=== PATIENT | male | born 1965 | race Caucasian/White ===

== ENCOUNTER 2019-08-25 13:44 | Emergency (ER) | payer OTHER, MEDICAID, SELFPAY ==
[2019-08-25 13:45] VITALS: BP 140/85; PULSE 96; RESP 14; TEMP 36.4; O2SAT 98
--- NOTE | 2019-08-25 14:21 | ED.EYEPROB ---
HPI - Eye Problem <TARYN Jolley - Last Filed: 08/25/19 21:19> General Chief complaint: Eye Problems Stated complaint: left eye object/dizzy/nausea last night Time Seen by Provider: 08/25/19 13:53 Source: patient Mode of arrival: Ambulatory Limitations: no limitations History of Present Illness HPI Narrative: 54-year-old male presents to the emergency department complaining of left eye pain, increased watery eye discharge, photosensitivity, and a feeling like there is a foreign object in his left for the past day and half. He states he was walking back from [place] last night when he felt like something flew into his eye. He denies grinding or cutting any metal or wood recently. He states there was an irritation in his eye that continued this morning making it difficult to open his eye. He denies any other symptoms such as headache, chest pain, nasal congestion, sore throat, shortness of breath, nausea, vomiting, diarrhea, or other concerns. He denies wearing any contacts. Related Data Home Medications Medication Instructions Recorded Confirmed ledipasvir-sofosbuvir [Harvoni] 1 tab PO QDAY #0 04/27/17 Previous Rx's Medication Instructions Recorded sulfamethoxazole-trimethoprim 1 tab PO BID #20 tab 04/27/17 amoxicillin 500 mg PO TID #30 tab 04/29/17 erythromycin 0.5 inch EYE-LEFT QID 5 Days #3.5 08/25/19 gram Allergies Allergy/AdvReac Type Severity Reaction Status Date / Time codeine [CODEINE] Allergy Unknown Unverified 01/25/18 12:45 Review of Systems <TARYN Jolley - Last Filed: 08/25/19 21:19> Review of Systems Narrative: REVIEW OF SYSTEMS: GENERAL: Denies fever or chills. HENT: No head trauma, hearing loss, or sore throat. EYES: Complains of left eye irritation, see HPI. NECK/LYMPHATIC: No lymphadenopathy. CARDIOVASCULAR: No chest pain. RESPIRATORY: No cough or shortness of breath. INTEGUMENTARY: No rash, lesions, or pruritus. NEURO: No headaches or confusion. Patient History <TARYN Jolley - Last Filed: 08/25/19 21:19> Medical History No significant medical problems (Acute) Social History Smoking Status: Former smoker alcohol intake frequency: 0-2 drinks per day Substance Use Type: does not use Exam <TARYN Jolley - Last Filed: 08/25/19 21:19> Narrative Exam Narrative: PHYSICAL EXAMINATION: GENERAL: Well groomed, alert, and cooperative. Answers questions promptly and appropriately. Vital signs noted. HENT: Normocephalic, atraumatic. Hearing intact. Oral mucosa is pink and moist. Face features symmetrical. [TMs with crisp light reflex] EYES: PERRLA, EOMI without pain, Right eye: Photosensitivity noted, Conjunctiva slightly injected, a 2mm collection of dye noted to cornea at approximately the 5 o'clock kj with fluorescein examination (suggesting corneal abrasion). No foreign bodies visualized. Moderate amount of clear watery discharge noted. Left eye: Conjunctiva clear, sclera white. CARDIOVASCULAR: S1 and S2 sounds normal. Regular rate and rhythm. RESPIRATORY: Normal respiratory rate, trachea midline, airway patent. No stridor, nasal flaring or accessory muscle use. Lungs are clear in all [place] without wheeze, rhonchi, or crackles. MUSCULOSKELETAL: Normal gait and coordination. Equal tone and mass bilaterally. SKIN: Warm, dry, soft, appropriate color for ethnicity. NEURO: Alert and Oriented X 3. Good coordination. PSYCH: Appropriate affect and mood. Initial Vital Signs Initial Vital Signs: Vital Signs Temperature 97.5 F L 08/25/19 13:45 Pulse Rate 96 H 08/25/19 13:45 Respiratory Rate 14 08/25/19 13:45 Blood Pressure 140/85 08/25/19 13:45 Pulse Oximetry 98 08/25/19 13:45 <Nichole Smiley DO - Last Filed: 08/26/19 07:37> Initial Vital Signs Initial Vital Signs: Vital Signs Temperature 97.5 F L 08/25/19 13:45 Pulse Rate 96 H 08/25/19 13:45 Respiratory Rate 14 08/25/19 13:45 Blood Pressure 140/85 08/25/19 13:45 Pulse Oximetry 98 08/25/19 13:45 Course <TARYN Jolley - Last Filed: 08/25/19 21:19> Course Course Narrative: Proparacaine was used during for seen examination. [place] mycin ointment was applied eye. Orders Ordered: Discontinued Medications Erythromycin (Erythromycin Ophth Oint) 1 applic EYE-LEFT NOW ONE Stop: 08/25/19 14:30 Last Admin: 08/25/19 14:35 Dose: 1 applic Documented by: BEATA Proparacaine HCl (Parcaine 0.5% Ophth Kristin) 1 drops EYE-LEFT NOW ONE Stop: 08/25/19 14:07 Last Admin: 08/25/19 14:35 Dose: 1 drops Documented by: BEATA Consultations Consultation #1: Patient staffed with Dr. Smiley. Vital Signs Vital signs: Vital Signs - 8 hr 08/25/19 13:45 Temperature 97.5 F L Pulse Rate 96 H Respiratory Rate 14 Blood Pressure 140/85 Pulse Oximetry 98 <Nichole Smiley DO - Last Filed: 08/26/19 07:37> Orders Ordered: Discontinued Medications Erythromycin (Erythromycin Ophth Oint) 1 applic EYE-LEFT NOW ONE Stop: 08/25/19 14:30 Last Admin: 08/25/19 14:35 Dose: 1 applic Documented by: BEATA Proparacaine HCl (Parcaine 0.5% Ophth Kristin) 1 drops EYE-LEFT NOW ONE Stop: 08/25/19 14:07 Last Admin: 08/25/19 14:35 Dose: 1 drops Documented by: BEATA Vital Signs Vital signs: Vital Signs - 8 hr 08/25/19 13:45 Temperature 97.5 F L Pulse Rate 96 H Respiratory Rate 14 Blood Pressure 140/85 Pulse Oximetry 98 MDM - Eye Problem <TARYN Jolley - Last Filed: 08/25/19 21:19> Medical Records Attestation: I reviewed the patient's medical records. Lab Data Attestation: I reviewed the patient's lab results. MDM Narrative Medical decision making narrative: Concern for corneal abrasion due to collection of dye on for seen examination. Patient was prescribed erythromycin ointment. No foreign body was visualized. Patient was extensively counseled for follow-up with an eye doctor in the next week for re-evaluation. Strict ED return precautions given for wound new or worsening symptoms such as vision changes, increased pain, headaches, or concerns. Discharge Plan Departure Patient Disposition: Home Clinical Impression: Corneal abrasion Discharge Date/Time: 08/25/19 14:41 Instructions: DI for Corneal Abrasion Activity Restrictions/Additional Instructions: Thank you for entrusting me with your care today. As discussed, it appears your symptoms may be caused by a corneal abrasion. I prescribed you an antibiotic for your eye, please use this 3-4 times daily. You may use Tylenol and ibuprofen for pain. Follow up with an eye doctor in the next week for re-evaluation. Return emergency department if he develops new or worsening symptoms such as severe and worsening eye pain, severe headache, chest pain, shortness of breath, or other concerns. Prescriptions: New erythromycin 5 mg/gram (0.5 %) ointment 0.5 inch EYE-LEFT QID 5 Days Qty: 3.5 RF: 0 No Action ledipasvir-sofosbuvir [Harvoni] 90 MG/400 MG tablet 1 tab PO QDAY Qty: 0 RF: 0 sulfamethoxazole-trimethoprim 800 MG/160 MG tablet 1 tab PO BID Qty: 20 RF: 0 amoxicillin 500 MG tablet 500 mg PO TID Qty: 30 RF: 0
[2019-08-25] MEDS: PROPARACAINE 0.5% OPHTH SOL 1 DROPS EYE-LEFT (14:35)
[2019-08-25] MEDS: ERYTHROMYCIN OPHTH 1 GM OINT 1 APPLIC EYE-LEFT (14:35)
== END 2019-08-25 14:41 | disposition home or self-care (01) ==
PROVIDERS: Emergency Provider Nurse Practitioner
DX: S05.02XA Injury of conjunctiva and corneal abrasion without foreign body, left eye, initial encounter (principal)
CPT/HCPCS: 99282; 99283

== ENCOUNTER → 2020-02-08 15:21 | Outpatient (CLI) | payer OTHER, MEDICAID, SELFPAY | PROVIDERS: Referring Provider Family Medicine; Visit Provider Family Medicine | DX: N40.0 Benign prostatic hyperplasia without lower urinary tract symptoms (principal) | CPT/HCPCS: 36415 ==

== ENCOUNTER 2020-10-25 16:02 | Emergency (ER) | payer OTHER, MEDICAID, SELFPAY ==
[2020-10-25 16:13] VITALS: BP 110/72; PULSE 114; RESP 15; TEMP 36.3; O2SAT 100; BMI 24.4
--- NOTE | 2020-10-25 17:08 | PC.NURSE ---
unable to locate pt
[2020-10-25 17:34] LABS: Add Manual Diff / Slide Review NO; Basophils Absolute Auto 0 /uL (0-100); Basophils Percent Auto 0.4 % (0-2); Eosinophils Absolute Auto 100 /uL (0-450); Eosinophils Percent Auto 0.9 % (2-4); Hematocrit 44.3 % (41-53); Hemoglobin 14.4 g/dL (13.5-17.5); Lymphocytes Absolute Auto 2300 /uL (1100-4500); Lymphocytes Percent Auto 30.6 % (25-40); Mean Corpuscular HGB Conc 32.6 % (30-36); Mean Corpuscular Volume 89.1 fL (80-100); Monocytes Absolute Auto 700 /uL (0-900); Monocytes Percent Auto 9.1 % (3-14); Neutrophils Absolute Auto 4400 /uL (1500-7000); Platelet Count 237 X10^3/uL (150-400); Red Blood Cell Count 4.96 X10^6/uL (4.5-5.9); Red Cell Distribution Width 12.9 % (11.6-14.8); White Blood Cell Count 7.4 X10^3/uL (4.5-11.0)
[2020-10-25 17:44] LABS: BUN Creatinine Ratio 9.7 (6-22); Blood Urea Nitrogen 11 mg/dL (9-20); Calcium 10.2 mg/dL (8.4-10.2); Carbon Dioxide 33 mmol/L (22-32); Chloride 91 mmol/L (98-107); Estimated Glomerular Filt Rate > 60.0 mL/min (>60); HEMOLYSIS < 15 (0-50); Potassium 4.2 mmol/L (3.4-5.1); Sodium 130 mmol/L (137-145)
[2020-10-25 17:59] LABS: Glucose 639 mg/dL (70-100)
--- NOTE | 2020-10-25 18:38 | PC.NURSE ---
Attempted to call 5 different numbers in the chart to have him return to the ED for elevated glucose. Unable to reach him
== END 2020-10-25 17:25 | disposition left against medical advice (07) ==
PROVIDERS: Emergency Provider Emergency Medicine
DX: E11.65 Type 2 diabetes mellitus with hyperglycemia (principal)
CPT/HCPCS: 36415; 80048; 83735; 85025; 99281

== ENCOUNTER 2020-10-28 16:37 | Observation (INO) | payer OTHER, MEDICAID, SELFPAY ==
[2020-10-28] VITALS (11 sets, daily range): BP systolic 124–162; BP diastolic 64–98; PULSE 79–108; RESP 12–22; TEMP 36.4–36.8; O2SAT 78–100; BMI 24.4
--- NOTE | 2020-10-28 16:38 | DI.CT.S_ITS ---
PROCEDURE: CT CHEST ABD PEL W CON INDICATIONS: ab pain TECHNIQUE: After the administration of intravenous contrast, 5 mm thick sections acquired from the lung apices to the symphysis. 5 mm coronal and sagittal reformats were performed, with additional 7 mm MIP reformats through the lungs. For radiation dose reduction, the following was used: automated exposure control, adjustment of mA and/or kV according to patient size. COMPARISON: [facility], CR, XR CHEST 1V, 10/28/2020, 17:06. [facility], CT, CT HEAD/BRAIN WO CON, 10/28/2020, 16:58. [facility], CT, ABDOMEN/PELVIS WITH CONTRAST, 02/28/2013, 15:03. FINDINGS: Image quality: Excellent. CHEST: Lungs and pleura: No acute airspace opacities. Centrilobular emphysematous changes are seen. These are more prominent at the lung apices than at the lung bases. No pleural effusions or pneumothorax. Central and peripheral airways appear patent and normal in caliber. Mediastinum: Heart size is normal. Heqd-sj-[id number] coronary dL artery calcification is seen. No pericardial effusion. No mediastinal or hilar adenopathy by size criteria. Thoracic aorta and central pulmonary arteries are normal in size. Esophagus is normal in caliber. There is a small hiatal hernia. Chest wall: No axillary or supraclavicular adenopathy by size criteria. Thyroid gland demonstrates no significant abnormality. ABDOMEN: Solid organs: Liver is normal in size and enhancement. Gallbladder wall is not thickened. Biliary system is non dilated. Pancreas enhances normally. Spleen is normal in size and enhancement. No adrenal nodules. The kidneys demonstrate normal size. There is mild to moderate left-sided hydroureter and hydronephrosis and there is at least moderate right-sided hydronephrosis and hydroureter seen. There is abnormal fluid seen surrounding the right kidney and also within the retroperitoneum. Peritoneum and bowel: Bowel loops demonstrate normal wall thickness and caliber. No free fluid or air. Nodes and vessels: No retroperitoneal or mesenteric adenopathy by size criteria. Aorta and inferior vena cava are normal in size. Atherosclerotic calcification is noted. Miscellaneous: No ventral hernias. PELVIS: Genitourinary: The urinary bladder is grossly enlarged, measuring 23 cm craniocaudal, seen above the level of the umbilicus. Miscellaneous: No inguinal hernias or adenopathy. Bones: No suspicious bony lesions. No vertebral body compression fractures. Mild to moderate levoconvex lumbar scoliotic curvature is seen. IMPRESSION: Grossly enlarged urinary bladder. Bilateral hydronephrosis and hydroureter can be seen, right worse than left. Urinary retention is presumed. There is fluid seen adjacent to the right kidney and within the retroperitoneum, which is felt most likely to be related to extravasated urine from a ruptured calyx. If clinically appropriate, a repeat CT without contrast could be considered to see if opacified urine can be seen within this area of retroperitoneal free fluid. (If the patient is rescanned, this could be performed at no additional charge to the patient. Those images should be placed on this study, with an addendum given.) Incidental note is made of: Moderate coronary artery calcification Small hiatal hernia [id number] levoconvex scoliotic curvature Note: Findings and recommendations discussed by telephone with Dr. Smiley at 4:34 p.m. [place] time on October 28, 2020. Dictated by: Denzel Cardona M.D. on 10/28/2020 at 16:26 Approved by: Denzel Cardona M.D. on 10/28/2020 at 16:35
--- NOTE | 2020-10-28 16:38 | DI.RAD.S_ITS ---
PROCEDURE: XR CHEST 1V INDICATIONS: ab pain TECHNIQUE: One view of the chest was acquired. COMPARISON: [facility], CT, CT HEAD/BRAIN WO CON, 10/28/2020, 16:58. [facility], CT, CT CHEST ABD PEL W CON, 10/28/2020, 16:58. FINDINGS: Surgical changes and devices: None. Lungs and pleura: An incomplete inspiratory result is noted, causing a crowded appearance to the lung markings. No focal infiltrates are seen. No pneumothorax or significant pleural effusions are seen. Mediastinum: Mediastinal contours appear normal. Heart size is normal. Bones and chest wall: No suspicious bony lesions. Overlying soft tissues appear unremarkable. IMPRESSION: Limited portable chest examination, without a significant cardiopulmonary abnormality identified. Dictated by: Denzel Cardona M.D. on 10/28/2020 at 16:24 Approved by: Denzel Cardona M.D. on 10/28/2020 at 16:25
--- NOTE | 2020-10-28 16:39 | DI.CT.S_ITS ---
PROCEDURE: CT HEAD/BRAIN WO CON INDICATIONS: left hand weakness 2 days TECHNIQUE: Noncontrast 4.5 mm thick angled axial sections acquired from the foramen magnum to the vertex, with coronal and sagittal reformats. For radiation dose reduction, the following was used: automated exposure control, adjustment of mA and/or kV according to patient size. COMPARISON: None. FINDINGS: Image quality: Excellent. CSF spaces: Basal cisterns are patent. No extra-axial fluid collections. The ventricles are symmetric in size and shape. Brain: No intracranial bleeds or masses. There is cerebral volume loss for age, with resultant ventricular and sulcal prominence. There are periventricular and deep white matter chronic small vessel ischemic changes. There is intracranial internal carotid artery atherosclerosis. Skull and face: Calvarium and visualized facial bones appear intact, without suspicious lesions. Sinuses: Visualized sinuses and mastoids are clear. IMPRESSION: 1. CT head without acute intracranial abnormalities or acute calvarial fractures. 2. Age-related senescent changes and sequela of chronic small vessel ischemic disease. If there is persistent or high clinical suspicion for acute cerebrovascular ischemia/stroke, more sensitive evaluation with brain MRI can be considered. Dictated by: Wilbur Burgos M.D. on 10/28/2020 at 16:21 Approved by: Wilbur Burgos M.D. on 10/28/2020 at 16:21
--- NOTE | 2020-10-28 17:06 | PC.NURSE ---
1640 called JOHNNIE Santos for assistance with IV access.
[2020-10-28 17:14] LABS: Add Manual Diff / Slide Review NO; Basophils Absolute Auto 100 /uL (0-100); Basophils Percent Auto 0.5 % (0-2); Eosinophils Absolute Auto 0 /uL (0-450); Eosinophils Percent Auto 0.4 % (2-4); Hematocrit 43.7 % (41-53); Hemoglobin 14.3 g/dL (13.5-17.5); Lymphocytes Absolute Auto 1500 /uL (1100-4500); Lymphocytes Percent Auto 11.9 % (25-40); Mean Corpuscular HGB Conc 32.7 % (30-36); Mean Corpuscular Hemoglobin 28.8 PG (26-34); Mean Corpuscular Volume 88.1 fL (80-100); Monocytes Absolute Auto 800 /uL (0-900); Monocytes Percent Auto 6.6 % (3-14); Neutrophils Absolute Auto 9900 /uL (1500-7000); Neutrophils Percent Auto 80.6 % (50-75); Platelet Count 263 X10^3/uL (150-400); Red Blood Cell Count 4.96 X10^6/uL (4.5-5.9); Red Cell Distribution Width 12.5 % (11.6-14.8); White Blood Cell Count 12.3 X10^3/uL (4.5-11.0)
[2020-10-28 17:23] LABS: HCO3 VBG 37 mmol/L (23-28); PCO2 VBG 63.6 mmHg (45-50); PO2 VBG 21 mmHg (35-45); pH VBG 7.37 (7.33-7.43)
[2020-10-28 17:24] LABS: Oxygen Saturation VBG 30 % (70-75); Total CO2 VBG 38 mmol/L (24-29)
[2020-10-28] MEDS: LIDOCAINE 2% (UROJET) 5 ML GEL TOP (17:30)
[2020-10-28 17:32] LABS: Alanine Aminotransferase 31 IU/L (<50); Albumin 4.4 g/dL (3.5-5.0); Albumin Globulin Ratio 1.3 (1.0-2.8); Alkaline Phosphatase 152 U/L (38-126); Aspartate Aminotransferase 24 IU/L (17-59); BUN Creatinine Ratio 9.9 (6-22); Bilirubin Total 0.4 mg/dL (0.2-1.3); Blood Urea Nitrogen 16 mg/dL (9-20); Calcium 10.2 mg/dL (8.4-10.2); Carbon Dioxide 37 mmol/L (22-32); Chloride 86 mmol/L (98-107); Estimated Glomerular Filt Rate 44.6 mL/min (>60); Globulin 3.4 g/dL (1.7-4.1); HEMOLYSIS < 15 (0-50); Lactate (Lactic Acid) 2.7 mmol/L (0.7-2.1); Potassium 4.6 mmol/L (3.4-5.1); Sodium 129 mmol/L (137-145); Total Protein 7.8 g/dL (6.3-8.2)
[2020-10-28 17:34] LABS: Ketones (Beta-Hydroxybutyrate) 0.53 mmol/L (<0.27)
[2020-10-28] MEDS: SODIUM CHLORIDE 0.9% 1,000 ML 1000 ML IV (17:35)
--- NOTE | 2020-10-28 17:38 | ED_ITS ---
HPI - Abdominal Pain General Chief Complaint: Abdominal Pain Stated Complaint: L hand immobile, abdominal pain worse, >500 blood Time Seen by Provider: 10/28/20 16:38 Source: patient and EMS Limitations: no limitations History of Present Illness HPI narrative: Patient is a 55-year-old male who presents with worsening abdominal pain. He was actually here 2 days ago but left before being seen. He somehow had blood work done and was found to be hyperglycemic with no known history of diabetes. Patient states that he filled up 7 diapers of urine last night. But seems to be in excruciating abdominal pain and discomfort. He has also had some left hand numbness and tingling ongoing for the last 2 days. No weakness. MD complaint: abdominal pain Onset (ago): day(s) (2) Pain Consistency: constant Location: diffuse Severity: severe Quality: stabbing and fullness Related Data Home Medications Medication Instructions Recorded Confirmed tamsulosin [Flomax] 0.4 mg PO BEDTIME 10/28/20 10/28/20 Allergies Allergy/AdvReac Type Severity Reaction Status Date / Time codeine [CODEINE] AdvReac Intermediate GI Upset Verified 10/25/20 16:13 Review of Systems Review of Systems ROS Unobtainable: All systems reviewed & are unremarkable except as noted in HPI and below Constitutional Constitutional: Denies chills, Denies fever(s), Denies lethargy and Denies weakness Cardiovascular Cardiovascular: Denies chest pain, Denies irregular heart rhythm, Denies lightheadedness, Denies palpitations, Denies dyspnea, Denies dyspnea on exertion and Denies orthopnea Respiratory Respiratory: Denies cough, Denies dyspnea, Denies dyspnea on exertion and Denies wheezing Gastrointestinal Gastrointestinal: Reports as per HPI Genitourinary Genitourinary: Reports as per HPI and Reports urinary frequency Genitourinary: Reports as per HPI and Reports urinary frequency Musculoskeletal Musculoskeletal: Denies back pain and Denies myalgias Integumentary/Breasts Skin/Breast: Denies pruritus, Denies erythema, Denies rash and Denies wounds Neurologic Neurologic: Denies weakness Endocrine Endocrine: Denies palpitations Allergic/Immunologic Allergic/Immunologic: Denies wheezing Patient History Medical History BPH (benign prostatic hyperplasia) Constipation No significant medical problems Surgical History No history of previous surgery Family History Other Adopted person Social History household members: none Smoking Status: Current every day smoker alcohol intake: former Smoking Status: Current every day smoker alcohol intake frequency: 0-2 drinks per day Substance Use Type: does not use Exam Initial Vital Signs Initial Vital Signs: Vital Signs Temperature 97.6 F 10/28/20 16:25 Pulse Rate 97 H 10/28/20 16:25 Respiratory Rate 22 10/28/20 16:25 Blood Pressure 149/89 H 10/28/20 16:25 Pulse Oximetry 95 10/28/20 16:25 GENERAL: Patient appears to be in severe pain and in no acute distress. HEENT: Head atraumatic,EOMI, pupils reactive, face symmetric, moist mucous membranes CARDIOVASCULAR: Regular rate and rhythm without murmurs, rubs or gallops. RESPIRATORY: Breath sounds equal bilaterally, no wheezes rales or rhonchi. ABDOMEN: Soft, distended grossly tender : No CVA tenderness EXTREMITIES: Normal range of motion, no clubbing or edema. Neurovascularly intact NEUROLOGICAL: Alert and oriented x4.Normal gait and speech. Cranial nerves II through XII grossly intact. [employer] strength equal bilaterally left hand above head SKIN: Warm, dry, no laceration, no petechiae, no rashes or lesions. Course Orders Ordered: Acetaminophen (Acetaminophen 325 Mg Tablet) 650 mg PO Q6HR PRN PRN Reason: Fever/Mild Pain (1-3) Dextrose (Dextrose 50 % In Water 25 Gm/50 Ml Syringe) 25 gm IV PRN PRN PRN Reason: Hypoglycemia Enoxaparin Sodium (Enoxaparin 40 Mg/0.4 Ml Syringe) 40 mg SUBCUT DAILY DEE DEE Sodium Chloride (Normal Saline 0.9%) 1,000 mls @ 100 mls/hr IV CONT DEE DEE Last Admin: 10/29/20 05:03 Dose: 100 mls/hr Documented by: Infusion: 10/29/20 05:03 Dose: 100 mls/hr Documented by: Admin: 10/28/20 22:39 Dose: 100 mls/hr Documented by: HEDWARD Ibuprofen (Ibuprofen 600 Mg Tablet) 600 mg PO Q6HR PRN PRN Reason: Fever/Mild Pain (1-3) Insulin Aspart (Insulin Aspart 100 Unit/Ml Insuln Pen) 0 unit SUBCUT ACHS [facility]; Protocol Last Admin: 10/28/20 23:59 Dose: 7 unit Documented by: JASMINA Cosigned by: CRISTY Insulin Glargine (Insulin Glargine 100 Unit/Ml 3ml Pen) 5 unit SUBCUT 0800 [facility] Insulin Glargine (Insulin Glargine 100 Unit/Ml 3ml Pen) 10 unit SUBCUT 2100 [facility] Last Admin: 10/28/20 23:58 Dose: 10 unit Documented by: JASMINA Cosigned by: CRISTY Naloxone HCl (Naloxone 0.4 Mg/Ml Vial) 0.2 mg IV Q2MIN PRN PRN Reason: Opiate Reversal Ondansetron HCl (Ondansetron 4 Mg/2 Ml Inj) 4 mg IV Q8HR PRN PRN Reason: Nausea And Vomiting Sennosides (Sennosides 8.6 Mg Tablet) 17.2 mg PO BEDTIME [facility] Last Admin: 10/28/20 22:39 Dose: 17.2 mg Documented by: CRISTY Sodium Chloride (Sodium Chloride 0.9% Flush) 10 ml IV PRN PRN PRN Reason: Flush Sodium Chloride (Sodium Chloride 0.9% Flush) 10 ml IV BID DEE DEE Discontinued Medications Sodium Chloride (Normal Saline 0.9%) 1,000 mls @ 1,000 mls/hr IV BOLUS ONE Stop: 10/28/20 17:37 Last Infusion: 10/28/20 19:15 Dose: 0 mls/hr Documented by: Admin: 10/28/20 17:35 Dose: 1,000 mls/hr Documented by: MP Sodium Chloride (Normal Saline 0.9%) 1,000 mls @ 150 mls/hr IV CONT [facility] Last Infusion: 10/28/20 20:55 Dose: 150 mls/hr Documented by: Admin: 10/28/20 19:32 Dose: 150 mls/hr Documented by: JENNIFER Insulin Aspart (Insulin Aspart 100 Unit/Ml Insuln Pen) 0 unit SUBCUT ACHS [facility]; Protocol Insulin Glargine (Insulin Glargine 100 Unit/Ml 3ml Pen) 10 unit SUBCUT 2100 DEE DEE Lidocaine HCl (Lidocaine 2% (Urojet) 5 Ml Gel) 5 ml TOP NOW ONE Stop: 10/28/20 17:31 Last Admin: 10/28/20 17:30 Dose: 5 ml Documented by: MP Vital Signs Vital signs: Vital Signs - 8 hr 10/28/20 16:25 10/28/20 16:41 10/28/20 17:00 Temperature 97.6 F Pulse Rate 97 H 79 96 H Respiratory Rate 22 13 Blood Pressure 149/89 H 149/89 H 131/83 Pulse Oximetry 95 78 L 82 L 10/28/20 17:22 10/28/20 17:30 10/28/20 18:00 Temperature Pulse Rate 82 90 90 Respiratory Rate 12 16 Blood Pressure 161/98 H 154/93 H 162/88 H Pulse Oximetry 94 100 100 10/28/20 19:00 Temperature Pulse Rate 95 H Respiratory Rate 15 Blood Pressure 162/88 H Pulse Oximetry 100 MDM - Abdominal Pain Lab Data Attestation: I reviewed the patient's lab results. Result diagrams: 10/29/20 05:52 10/29/20 05:52 Labs: Lab Results 10/28/20 10/28/20 10/28/20 Range/Units 16:50 16:50 16:50 WBC 12.3 H (4.5-11.0) X10^3/uL RBC 4.96 (4.5-5.9) X10^6/uL Hgb 14.3 (13.5-17.5) g/dL Hct 43.7 (41-53) % MCV 88.1 (80-100) fL MCH 28.8 (26-34) PG MCHC 32.7 (30-36) % RDW 12.5 (11.6-14.8) % Plt Count 263 (150-400) X10^3/uL Neut % (Auto) 80.6 H (50-75) % Lymph % (Auto) 11.9 L (25-40) % Wilson % (Auto) 6.6 (3-14) % Eos % (Auto) 0.4 L (2-4) % Baso % (Auto) 0.5 (0-2) % Neut # (Auto) 9900 H (4364-9317) /uL Lymph # (Auto) 1500 (7233-4122) /uL Wilson # (Auto) 800 (0-900) /uL Eos # (Auto) 0 (0-450) /uL Baso # (Auto) 100 (0-100) /uL VBG pH (7.33-7.43) VBG pCO2 (45-50) mmHg VBG pO2 (35-45) mmHg VBG HCO3 (23-28) mmol/L VBG Total CO2 (24-29) mmol/L VBG O2 Saturation (70-75) % VBG Base Excess (0-4) mmol/L Sodium 129 L (137-145) mmol/L Potassium 4.6 (3.4-5.1) mmol/L Chloride 86 L (98-107) mmol/L Carbon Dioxide 37 H (22-32) mmol/L BUN 16 (9-20) mg/dL Creatinine 1.62 H (0.66-1.25) mg/dL Estimated GFR 44.6 L (>60) mL/min BUN/Creatinine Ratio 9.9 (6-22) Glucose 726 H* (70-100) mg/dL Hemoglobin A1c (4.0-6.0) % Lactate (0.7-2.1) mmol/L Calcium 10.2 (8.4-10.2) mg/dL Total Bilirubin 0.4 (0.2-1.3) mg/dL AST 24 (17-59) IU/L ALT 31 (<50) IU/L Alkaline Phosphatase 152 H (38-126) U/L Total Protein 7.8 (6.3-8.2) g/dL Albumin 4.4 (3.5-5.0) g/dL Globulin 3.4 (1.7-4.1) g/dL Albumin/Globulin Ratio 1.3 (1.0-2.8) Procalcitonin < 0.05 (<0.5) ng/mL Urine Color Urine Appearance Urine pH (4.5-8.0) Ur Specific [place] (1.000-1.035) Urine Protein (Negative) Urine Glucose (UA) (Negative) g/dL Urine Ketones (NEGATIVE) Urine Occult Blood (Negative) Urine Nitrate (Negative) Urine Bilirubin (NEGATIVE) Urine Urobilinogen (0.2) E.U./dL Ur Leukocyte Esterase (NEGATIVE) Urine RBC (0-5/HPF) Urine WBC (0-5/HPF) Urine Bacteria (None) Ur Culture Indicated? U Opiates 300ng/mL cut (Negative) Ur Oxycodone Screen (Negative) Urine Methadone Screen (Negative) Ur Barbiturates Screen (Negative) U Tricyclic Antidepress (Negative) Ur Phencyclidine Scrn (Negative) Ur Amphetamines Screen (Negative) U Methamphetamines Scrn (Negative) Ur MDMA Scrn (Ecstasy) (Negative) U Benzodiazepines Scrn (Negative) Urine Cocaine Screen (Negative) U Marijuana (THC) Screen (Negative) Ketones 0.53 H (<0.27) mmol/L SARS-CoV-2 (PCR) (Negative) 10/28/20 10/28/20 10/28/20 Range/Units 16:50 16:50 16:55 WBC (4.5-11.0) X10^3/uL RBC (4.5-5.9) X10^6/uL Hgb (13.5-17.5) g/dL Hct (41-53) % MCV (80-100) fL MCH (26-34) PG MCHC (30-36) % RDW (11.6-14.8) % Plt Count (150-400) X10^3/uL Neut % (Auto) (50-75) % Lymph % (Auto) (25-40) % Wilson % (Auto) (3-14) % Eos % (Auto) (2-4) % Baso % (Auto) (0-2) % Neut # (Auto) (7552-7535) /uL Lymph # (Auto) (5147-3714) /uL Wilson # (Auto) (0-900) /uL Eos # (Auto) (0-450) /uL Baso # (Auto) (0-100) /uL VBG pH 7.37 (7.33-7.43) VBG pCO2 63.6 H (45-50) mmHg VBG pO2 21 L (35-45) mmHg VBG HCO3 37 H (23-28) mmol/L VBG Total CO2 38 H (24-29) mmol/L VBG O2 Saturation 30 L (70-75) % VBG Base Excess 11.0 H (0-4) mmol/L Sodium (137-145) mmol/L Potassium (3.4-5.1) mmol/L Chloride (98-107) mmol/L Carbon Dioxide (22-32) mmol/L BUN (9-20) mg/dL Creatinine (0.66-1.25) mg/dL Estimated GFR (>60) mL/min BUN/Creatinine Ratio (6-22) Glucose (70-100) mg/dL Hemoglobin A1c > 14.0 H (4.0-6.0) % Lactate 2.7 H (0.7-2.1) mmol/L Calcium (8.4-10.2) mg/dL Total Bilirubin (0.2-1.3) mg/dL AST (17-59) IU/L ALT (<50) IU/L Alkaline Phosphatase (38-126) U/L Total Protein (6.3-8.2) g/dL Albumin (3.5-5.0) g/dL Globulin (1.7-4.1) g/dL Albumin/Globulin Ratio (1.0-2.8) Procalcitonin (<0.5) ng/mL Urine Color Urine Appearance Urine pH (4.5-8.0) Ur Specific [place] (1.000-1.035) Urine Protein (Negative) Urine Glucose (UA) (Negative) g/dL Urine Ketones (NEGATIVE) Urine Occult Blood (Negative) Urine Nitrate (Negative) Urine Bilirubin (NEGATIVE) Urine Urobilinogen (0.2) E.U./dL Ur Leukocyte Esterase (NEGATIVE) Urine RBC (0-5/HPF) Urine WBC (0-5/HPF) Urine Bacteria (None) Ur Culture Indicated? U Opiates 300ng/mL cut (Negative) Ur Oxycodone Screen (Negative) Urine Methadone Screen (Negative) Ur Barbiturates Screen (Negative) U Tricyclic Antidepress (Negative) Ur Phencyclidine Scrn (Negative) Ur Amphetamines Screen (Negative) U Methamphetamines Scrn (Negative) Ur MDMA Scrn (Ecstasy) (Negative) U Benzodiazepines Scrn (Negative) Urine Cocaine Screen (Negative) U Marijuana (THC) Screen (Negative) Ketones (<0.27) mmol/L SARS-CoV-2 (PCR) (Negative) 10/28/20 10/28/20 10/28/20 Range/Units 17:40 17:40 17:45 WBC (4.5-11.0) X10^3/uL RBC (4.5-5.9) X10^6/uL Hgb (13.5-17.5) g/dL Hct (41-53) % MCV (80-100) fL MCH (26-34) PG MCHC (30-36) % RDW (11.6-14.8) % Plt Count (150-400) X10^3/uL Neut % (Auto) (50-75) % Lymph % (Auto) (25-40) % Wilson % (Auto) (3-14) % Eos % (Auto) (2-4) % Baso % (Auto) (0-2) % Neut # (Auto) (9624-3658) /uL Lymph # (Auto) (6372-1821) /uL Wilson # (Auto) (0-900) /uL Eos # (Auto) (0-450) /uL Baso # (Auto) (0-100) /uL VBG pH (7.33-7.43) VBG pCO2 (45-50) mmHg VBG pO2 (35-45) mmHg VBG HCO3 (23-28) mmol/L VBG Total CO2 (24-29) mmol/L VBG O2 Saturation (70-75) % VBG Base Excess (0-4) mmol/L Sodium (137-145) mmol/L Potassium (3.4-5.1) mmol/L Chloride (98-107) mmol/L Carbon Dioxide (22-32) mmol/L BUN (9-20) mg/dL Creatinine (0.66-1.25) mg/dL Estimated GFR (>60) mL/min BUN/Creatinine Ratio (6-22) Glucose (70-100) mg/dL Hemoglobin A1c (4.0-6.0) % Lactate (0.7-2.1) mmol/L Calcium (8.4-10.2) mg/dL Total Bilirubin (0.2-1.3) mg/dL AST (17-59) IU/L ALT (<50) IU/L Alkaline Phosphatase (38-126) U/L Total Protein (6.3-8.2) g/dL Albumin (3.5-5.0) g/dL Globulin (1.7-4.1) g/dL Albumin/Globulin Ratio (1.0-2.8) Procalcitonin (<0.5) ng/mL Urine Color Yellow Urine Appearance Clear Urine pH 6.0 (4.5-8.0) Ur Specific [place] <=1.005 (1.000-1.035) Urine Protein Negative (Negative) Urine Glucose (UA) 2+ H (Negative) g/dL Urine Ketones Negative (NEGATIVE) Urine Occult Blood Negative (Negative) Urine Nitrate Negative (Negative) Urine Bilirubin Negative (NEGATIVE) Urine Urobilinogen 0.2 (0.2) E.U./dL Ur Leukocyte Esterase Negative (NEGATIVE) Urine RBC None seen (0-5/HPF) Urine WBC None seen (0-5/HPF) Urine Bacteria None seen (None) Ur Culture Indicated? Cult not indicated U Opiates 300ng/mL cut Negative (Negative) Ur Oxycodone Screen Negative (Negative) Urine Methadone Screen Negative (Negative) Ur Barbiturates Screen Negative (Negative) U Tricyclic Antidepress Negative (Negative) Ur Phencyclidine Scrn Negative (Negative) Ur Amphetamines Screen Positive H (Negative) U Methamphetamines Scrn Positive H (Negative) Ur MDMA Scrn (Ecstasy) Negative (Negative) U Benzodiazepines Scrn Negative (Negative) Urine Cocaine Screen Negative (Negative) U Marijuana (THC) Screen Negative (Negative) Ketones (<0.27) mmol/L SARS-CoV-2 (PCR) Negative (Negative) 10/28/20 10/28/20 10/28/20 Range/Units 19:50 19:50 20:01 WBC (4.5-11.0) X10^3/uL RBC (4.5-5.9) X10^6/uL Hgb (13.5-17.5) g/dL Hct (41-53) % MCV (80-100) fL MCH (26-34) PG MCHC (30-36) % RDW (11.6-14.8) % Plt Count (150-400) X10^3/uL Neut % (Auto) (50-75) % Lymph % (Auto) (25-40) % Wilson % (Auto) (3-14) % Eos % (Auto) (2-4) % Baso % (Auto) (0-2) % Neut # (Auto) (5441-5696) /uL Lymph # (Auto) (5009-5235) /uL Wilson # (Auto) (0-900) /uL Eos # (Auto) (0-450) /uL Baso # (Auto) (0-100) /uL VBG pH (7.33-7.43) VBG pCO2 (45-50) mmHg VBG pO2 (35-45) mmHg VBG HCO3 (23-28) mmol/L VBG Total CO2 (24-29) mmol/L VBG O2 Saturation (70-75) % VBG Base Excess (0-4) mmol/L Sodium (137-145) mmol/L Potassium (3.4-5.1) mmol/L Chloride (98-107) mmol/L Carbon Dioxide (22-32) mmol/L BUN (9-20) mg/dL Creatinine (0.66-1.25) mg/dL Estimated GFR (>60) mL/min BUN/Creatinine Ratio (6-22) Glucose 593 H* (70-100) mg/dL Hemoglobin A1c (4.0-6.0) % Lactate 2.7 H Cancelled (0.7-2.1) mmol/L Calcium (8.4-10.2) mg/dL Total Bilirubin (0.2-1.3) mg/dL AST (17-59) IU/L ALT (<50) IU/L Alkaline Phosphatase (38-126) U/L Total Protein (6.3-8.2) g/dL Albumin (3.5-5.0) g/dL Globulin (1.7-4.1) g/dL Albumin/Globulin Ratio (1.0-2.8) Procalcitonin (<0.5) ng/mL Urine Color Urine Appearance Urine pH (4.5-8.0) Ur Specific [place] (1.000-1.035) Urine Protein (Negative) Urine Glucose (UA) (Negative) g/dL Urine Ketones (NEGATIVE) Urine Occult Blood (Negative) Urine Nitrate (Negative) Urine Bilirubin (NEGATIVE) Urine Urobilinogen (0.2) E.U./dL Ur Leukocyte Esterase (NEGATIVE) Urine RBC (0-5/HPF) Urine WBC (0-5/HPF) Urine Bacteria (None) Ur Culture Indicated? U Opiates 300ng/mL cut (Negative) Ur Oxycodone Screen (Negative) Urine Methadone Screen (Negative) Ur Barbiturates Screen (Negative) U Tricyclic Antidepress (Negative) Ur Phencyclidine Scrn (Negative) Ur Amphetamines Screen (Negative) U Methamphetamines Scrn (Negative) Ur MDMA Scrn (Ecstasy) (Negative) U Benzodiazepines Scrn (Negative) Urine Cocaine Screen (Negative) U Marijuana (THC) Screen (Negative) Ketones (<0.27) mmol/L SARS-CoV-2 (PCR) (Negative) Imaging Data CT scan - head: Radiologist's Impression: PROCEDURE: CT HEAD/BRAIN WO CON INDICATIONS: left hand weakness 2 days TECHNIQUE: Noncontrast 4.5 mm thick angled axial sections acquired from the foramen magnum to the vertex, with coronal and sagittal reformats. For radiation dose reduction, the following was used: automated exposure control, adjustment of mA and/or kV according to patient size. COMPARISON: None. FINDINGS: Image quality: Excellent. CSF spaces: Basal cisterns are patent. No extra-axial fluid collections. The ventricles are symmetric in size and shape. Brain: No intracranial bleeds or masses. There is cerebral volume loss for age, with resultant ventricular and sulcal prominence. There are periventricular and deep white matter chronic small vessel ischemic changes. There is intracranial internal carotid artery atherosclerosis. Skull and face: Calvarium and visualized facial bones appear intact, without suspicious lesions. Sinuses: Visualized sinuses and mastoids are clear. IMPRESSION: 1. CT head without acute intracranial abnormalities or acute calvarial fractures. 2. Age-related senescent changes and sequela of chronic small vessel ischemic disease. If there is persistent or high clinical suspicion for acute cerebrovascular ischemia/stroke, more sensitive evaluation with brain MRI can be considered. Dictated by: Wilbur Burgos M.D. on 10/28/2020 at 16:21 CT scan - abdomen/pelvis: Radiologist's Impression: ADDENDUMThis report includes an Addendum and supersedes previous reports for this exam. PROCEDURE: CT CHEST ABD PEL W CON INDICATIONS: ab pain TECHNIQUE: After the administration of intravenous contrast, 5 mm thick sections acquired from the lung apices to the symphysis. 5 mm coronal and sagittal reformats were performed, with additional 7 mm MIP reformats through the lungs. For radiation dose reduction, the following was used: automated exposure control, adjustment of mA and/or kV according to patient size. COMPARISON: [facility], CR, XR CHEST 1V, 10/28/2020, 17:06. [facility], CT, CT HEAD/BRAIN WO CON, 10/28/2020, 16:58. [facility], CT, ABDOMEN/PELVIS WITH CONTRAST, 02/28/2013, 15:03. FINDINGS: Image quality: Excellent. CHEST: Lungs and pleura: No acute airspace opacities. Centrilobular emphysematous changes are seen. These are more prominent at the lung apices than at the lung bases. No pleural effusions or pneumothorax. Central and peripheral airways appear patent and normal in caliber. Mediastinum: Heart size is normal. [id number] coronary dL artery calcification is seen. No pericardial effusion. No mediastinal or hilar adenopathy by size criteria. Thoracic aorta and central pulmonary arteries are normal in size. Esophagus is normal in caliber. There is a small hiatal hernia. Chest wall: No axillary or supraclavicular adenopathy by size criteria. Thyroid gland demonstrates no significant abnormality. ABDOMEN: Solid organs: Liver is normal in size and enhancement. Gallbladder wall is not thickened. Biliary system is non dilated. Pancreas enhances normally. Spleen is normal in size and enhancement. No adrenal nodules. The kidneys demonstrate normal size. There is mild to moderate left-sided hydroureter and hydronephrosis and there is at least moderate right-sided hydronephrosis and hydroureter seen. There is abnormal fluid seen surrounding the right kidney and also within the retroperitoneum. Peritoneum and bowel: Bowel loops demonstrate normal wall thickness and caliber. No free fluid or air. Nodes and vessels: No retroperitoneal or mesenteric adenopathy by size criteria. Aorta and inferior vena cava are normal in size. Atherosclerotic calcification is noted. Miscellaneous: No ventral hernias. PELVIS: Genitourinary: The urinary bladder is grossly enlarged, measuring 23 cm craniocaudal, seen above the level of the umbilicus. Miscellaneous: No inguinal hernias or adenopathy. Bones: No suspicious bony lesions. No vertebral body compression fractures. Mild to moderate levoconvex lumbar scoliotic curvature is seen. IMPRESSION: Grossly enlarged urinary bladder. Bilateral hydronephrosis and hydroureter can be seen, right worse than left. Urinary retention is presumed. There is fluid seen adjacent to the right kidney and within the retroperitoneum, which is felt most likely to be related to extravasated urine from a ruptured calyx. If clinically appropriate, a repeat CT without contrast could be considered to see if opacified urine can be seen within this area of retroperitoneal free fluid. (If the patient is rescanned, this could be performed at no additional charge to the patient. Those images should be placed on this study, with an addendum given.) Incidental note is made of: Moderate coronary artery calcification Small hiatal hernia [id number] levoconvex scoliotic curvature Note: Findings and recommendations discussed by telephone with Dr. Smiley at 4:34 p.m. [place] time on October 28, 2020. Dictated by: Denzel Cardona M.D. on 10/28/2020 at 16:26 Approved by: Denzel Cardona M.D. on 10/28/2020 at 16:35 ADDENDUM: Repeat imaging was performed at no additional charge to the patient. On the repeat images, there is confirmation of extravasated urine into the right retroperitoneal cavity, particularly adjacent to the right kidney, which is highly suspicious for a rupture of a right renal tre, with ongoing leakage of urine into the retroperitoneum. Dictated by: Denzel Cardona M.D. on 10/28/2020 at 17:28 Approved by: Denzel Cardona M.D. on 10/28/2020 at 17:30 Addendum Dictated By:Denzel Cardona MDAddendum Signed By:Addendum Cosigned By:DD/ TD/TT: 10/28/2010/06/1834 PROCEDURE: CT CHEST ABD PEL W CON INDICATIONS: ab pain TECHNIQUE: After the administration of intravenous contrast, 5 mm thick sections acquired from the lung apices to the symphysis. 5 mm coronal and sagittal reformats were performed, with additional 7 mm MIP reformats through the lungs. For radiation dose reduction, the following was used: automated exposure control, adjustment of mA and/or kV ac cording to patient size. COMPARISON: [facility], CR, XR CHEST 1V, 10/28/2020, 17:06. [facility], CT, CT HEAD/BRAIN WO CON, 10/28/2020, 16:58. [facility], CT, ABDOMEN/PELVIS WITH CONTRAST, 02/28/2013, 15:03. FINDINGS: Image quality: Excellent. CHEST: Lungs and pleura: No acute airspace opacities. Centrilobular emphysematous changes are seen. These are more prominent at the lung apices than at the lung bases. No pleural effusions or pneumothorax. Central and peripheral airways appear patent and normal in caliber. Mediastinum: Heart size is normal. [id number] coronary dL artery calcification is seen. No pericardial effusion. No mediastinal or hilar adenopathy by size criteria. Thoracic aorta and central pulmonary arteries are normal in size. Esophagus is normal in caliber. There is a small hiatal hernia. Chest wall: No axillary or supraclavicular adenopathy by size criteria. Thyroid gland demonstrates no significant abnormality. ABDOMEN: Solid organs: Liver is normal in size and enhancement. Gallbladder wall is not thickened. Biliary system is non dilated. Pancreas enhances normally. Spleen is normal in size and enhancement. No adrenal nodules. The kidneys demonstrate normal size. There is mild to moderate left-sided hydroureter and hydronephrosis and there is at least moderate right-sided hydronephrosis and hydroureter seen. There is abnormal fluid seen surrounding the right kidney and also within the retroperitoneum. Peritoneum and bowel: Bowel loops demonstrate normal wall thickness and caliber. No free fluid or air. Nodes and vessels: No retroperitoneal or mesenteric adenopathy by size criteria. Aorta and inferior vena cava are normal in size. Atherosclerotic calcification is noted. Miscellaneous: No ventral hernias. PELVIS: Genitourinary: The urinary bladder is grossly enlarged, measuring 23 cm craniocaudal, seen above the level of the umbilicus. Miscellaneous: No inguinal hernias or adenopathy. Bones: No suspicious bony lesions. No vertebral body compression fractures. Mild to moderate levoconvex lumbar scoliotic curvature is seen. IMPRESSION: Grossly enlarged urinary bladder. Bilateral hydronephrosis and hydroureter can be seen, right worse than left. Urinary retention is presumed. There is fluid seen adjacent to the right kidney and within the retroperitoneum, which is felt most likely to be related to extravasated urine from a ruptured calyx. If clinically appropriate, a repeat CT without contrast could be considered to see if opacified urine can be seen within this area of retroperitoneal free fluid. (If the patient is rescanned, this could be performed at no additional charge to the patient. Those images should be placed on this study, with an addendum given.) Incidental note is made of: Moderate coronary artery calcification Small hiatal hernia [id number] levoconvex scoliotic curvature Note: Findings and recommendations discussed by telephone with Dr. Smiley at 4:34 p.m. [place] time on October 28, 2020. Dictated by: Denzel Cardona M.D. on 10/28/2020 at 16:26 MDM Narrative Medical decision making narrative: 1910 DR. Harris, urology updated on patient's symptoms test results. At this time rectal hands Martinez catheter in place for a few weeks no intervention at this time. Calyx should heal on its own. The patient is an uncontrolled newly diagnosed diabetic. With elevated glucose. No sign of DKA. Hyponatremia corrects with glucose. He has urinary retention with likely post renal acute kidney injury. Martinez catheter now in place overall patient feels much better. He states that he left 2 days ago because he is [facility] hospitals because people here. He does see Dr. Matt, it looks as though he saw him once last year. He has ongoing chronic issues Melyssa CENTENO in ED to see and evaluate patient discharge versus observation. Her Decision for observation Discharge Plan Departure Patient Disposition: Admitted as Observation Clinical Impression: Acute urinary retention, Acute hyperglycemia Admit Date/Time: 10/28/20 20:10 Admit Provider: Anaya Elmore
[2020-10-28 17:41] LABS: Glucose 726 mg/dL (70-100)
[2020-10-28 17:55] LABS: Procalcitonin < 0.05 ng/mL (<0.5)
[2020-10-28 18:36] LABS: Bacteria Urine None Seen; RBC Urine None Seen (0-5/HPF); WBC Urine None Seen (0-5/HPF)
[2020-10-28 18:41] LABS: Appearance Urine UA CLEAR; Bilirubin Urine UA NEGATIVE (NEGATIVE); Color Urine UA YELLOW; Glucose Urine UA 2+ g/dL (Negative); Ketones Urine UA NEGATIVE (NEGATIVE); Leukocyte Esterase Urine UA NEGATIVE (NEGATIVE); Nitrite Urine UA NEGATIVE (Negative); Occult Blood Urine UA NEGATIVE (Negative); Protein Urine UA NEGATIVE (Negative); Specific Gravity Urine UA <=1.005 (1.000-1.035); Urobilinogen Urine UA 0.2 E.U./dL (0.2)
[2020-10-28 18:51] LABS: COVID19 -Nasal RAPID Negative (Negative)
[2020-10-28 18:54] LABS: Culture Indicated Urine Cult Not Indicated
[2020-10-28 18:56] LABS: Hemoglobin A1C% w Est Avg Glu > 14.0 % (4.0-6.0)
[2020-10-28 19:10] LABS: Reflexed Lactate in 2 Hours Y
[2020-10-28] MEDS: SODIUM CHLORIDE 0.9% 1,000 ML 150 ML IV (19:32)
[2020-10-28 20:11] LABS: Lactate 2HR (Lactic Acid Rflx) 2.7 mmol/L (0.7-2.1)
[2020-10-28 20:17] LABS: Glucose 593 mg/dL (70-100)
--- NOTE | 2020-10-28 20:56 | P.HP_ITS ---
History of Present Illness History of Present Illness Date Patient Seen: 10/28/20 Time Patient Seen: 20:45 Chief complaint: Hyperglycemia, urinary retention Narrative: Rafael Harvey is a 55 y.o. male who was last seen by Dr. Matt for urinary retention. He presented to the ED a day ago initially for problems with his left hand and apparently left. Today he returned do to having urinary retention. He states he gets constipated, and when he is, is unable to urinate. He was found to have a blood glucose of 726 and an A1c of greater than 14, and we were asked to see the patient. He states he is very afraid, he has a 5 month old son with his current girlfriend in [place] and was wanting to know if his diabetes will be passed onto his son. He also believes he may have had a stroke as he has lost the mobility of this left hand and is in a contracted state. He denies fever, sweats or chills, dyspnea, chest pain, does endorse a multitude of dermatologic complaints, states the bottom of his feet feel like they are on fire. He states that he was discharged from [facility] after having missed one appointment. He states he is without transportation and currently uses methamphetamine daily. He states he had Hepatitis C from heroin and cocaine use in the past. He does not know anything about his family history stating he was adopted. CT of the abdomen pelvis indicated There is fluid seen adjacent to the right kidney and within the retroperitoneum, which is felt most likely to be related to extravasated urine from a ruptured calyx. Non-contract CT of the head reported to me to be normal. Temp was 97.6?, blood pressure 124/64, heart rate 108, respiratory rate 16, oxygen saturation of 96% on 2 L, he weighs 82 kg with a BMI of 24.4. His WBC is mildly elevated at 12.3, rest of CBC is within normal limits, sodium was 129, potassium 4.6, chloride 86, bicarb 37, BUN 16, creatinine 1.62, GFR is 44.6, glucose was 593, A1c is greater than 14, lactate was 2.7, alk-phos was 152, he has glucose and ketone in his urine, and it is positive for methamphetamine and amphetamines. COVID-19 PCR was negative. Patient History Medical History BPH (benign prostatic hyperplasia) Constipation No significant medical problems Surgical History No history of previous surgery Family & Social History Family History Other Adopted person Safety & Behavioral: Feels Safe in Current Yes Environment Been Physically Hurt or No Threatened By a Person Tobacco & Substance use: Smoking Status Current every day smoker alcohol intake frequency 0-2 drinks per day Substance Use Type does not use Meds Home Medications and Allergies Home Medications Medication Instructions Recorded Confirmed Type tamsulosin [Flomax] 0.4 mg PO BEDTIME 10/28/20 10/28/20 History Allergies Allergy/AdvReac Type Severity Reaction Status Date / Time codeine [CODEINE] AdvReac Intermediate GI Upset Verified 10/25/20 16:13 Review of Systems Review of Systems ROS: Yes All systems reviewed with the patient and are negative except as otherwise documented Exam Vital Signs (past 8 hours): - 10/28/20 16:25 10/28/20 16:41 10/28/20 17:00 Temperature 97.6 F Pulse Rate 97 H 79 96 H Respiratory Rate 22 13 Blood Pressure 149/89 H 149/89 H 131/83 Pulse Oximetry 95 78 L 82 L 10/28/20 17:22 10/28/20 17:30 10/28/20 18:00 Temperature Pulse Rate 82 90 90 Respiratory Rate 12 16 Blood Pressure 161/98 H 154/93 H 162/88 H Pulse Oximetry 94 100 100 10/28/20 19:00 10/28/20 20:00 Temperature Pulse Rate 95 H 101 H Respiratory Rate 15 17 Blood Pressure 162/88 H 154/86 H Pulse Oximetry 100 98 Oxygen Delivery Method Nasal Cannula Oxygen Flow Rate 2 Objective Labs Result Diagrams: 10/28/20 16:50 10/28/20 19:50 Labs: Laboratory Results - last 24 hr 10/28/20 10/28/20 10/28/20 16:50 16:50 16:50 WBC 12.3 H RBC 4.96 Hgb 14.3 Hct 43.7 MCV 88.1 MCH 28.8 MCHC 32.7 RDW 12.5 Plt Count 263 Neut % (Auto) 80.6 H Lymph % (Auto) 11.9 L [place] % (Auto) 6.6 Eos % (Auto) 0.4 L Baso % (Auto) 0.5 Neut # (Auto) 9900 H Lymph # (Auto) 1500 [place] # (Auto) 800 Eos # (Auto) 0 Baso # (Auto) 100 VBG pH VBG pCO2 VBG pO2 VBG HCO3 VBG Total CO2 VBG O2 Saturation VBG Base Excess Sodium 129 L Potassium 4.6 Chloride 86 L Carbon Dioxide 37 H BUN 16 Creatinine 1.62 H Estimated GFR 44.6 L BUN/Creatinine Ratio 9.9 Glucose 726 H* Hemoglobin A1c Lactate Calcium 10.2 Total Bilirubin 0.4 AST 24 ALT 31 Alkaline Phosphatase 152 H Total Protein 7.8 Albumin 4.4 Globulin 3.4 Albumin/Globulin Ratio 1.3 Procalcitonin < 0.05 Urine Color Urine Appearance Urine pH Ur Specific [place] Urine Protein Urine Glucose (UA) Urine Ketones Urine Occult Blood Urine Nitrate Urine Bilirubin Urine Urobilinogen Ur Leukocyte Esterase Urine RBC Urine WBC Urine Bacteria Ur Culture Indicated? Ketones 0.53 H SARS-CoV-2 (PCR) 10/28/20 10/28/20 10/28/20 16:50 16:50 16:55 WBC RBC Hgb Hct MCV MCH MCHC RDW Plt Count Neut % (Auto) Lymph % (Auto) [place] % (Auto) Eos % (Auto) Baso % (Auto) Neut # (Auto) Lymph # (Auto) [place] # (Auto) Eos # (Auto) Baso # (Auto) VBG pH 7.37 VBG pCO2 63.6 H VBG pO2 21 L VBG HCO3 37 H VBG Total CO2 38 H VBG O2 Saturation 30 L VBG Base Excess 11.0 H Sodium Potassium Chloride Carbon Dioxide BUN Creatinine Estimated GFR BUN/Creatinine Ratio Glucose Hemoglobin A1c > 14.0 H Lactate 2.7 H Calcium Total Bilirubin AST ALT Alkaline Phosphatase Total Protein Albumin Globulin Albumin/Globulin Ratio Procalcitonin Urine Color Urine Appearance Urine pH Ur Specific [place] Urine Protein Urine Glucose (UA) Urine Ketones Urine Occult Blood Urine Nitrate Urine Bilirubin Urine Urobilinogen Ur Leukocyte Esterase Urine RBC Urine WBC Urine Bacteria Ur Culture Indicated? Ketones SARS-CoV-2 (PCR) 10/28/20 10/28/20 10/28/20 17:40 17:45 19:50 WBC RBC Hgb Hct MCV MCH MCHC RDW Plt Count Neut % (Auto) Lymph % (Auto) [place] % (Auto) Eos % (Auto) Baso % (Auto) Neut # (Auto) Lymph # (Auto) [place] # (Auto) Eos # (Auto) Baso # (Auto) VBG pH VBG pCO2 VBG pO2 VBG HCO3 VBG Total CO2 VBG O2 Saturation VBG Base Excess Sodium Potassium Chloride Carbon Dioxide BUN Creatinine Estimated GFR BUN/Creatinine Ratio Glucose Hemoglobin A1c Lactate 2.7 H Calcium Total Bilirubin AST ALT Alkaline Phosphatase Total Protein Albumin Globulin Albumin/Globulin Ratio Procalcitonin Urine Color Yellow Urine Appearance Clear Urine pH 6.0 Ur Specific [place] <=1.005 Urine Protein Negative Urine Glucose (UA) 2+ H Urine Ketones Negative Urine Occult Blood Negative Urine Nitrate Negative Urine Bilirubin Negative Urine Urobilinogen 0.2 Ur Leukocyte Esterase Negative Urine RBC None seen Urine WBC None seen Urine Bacteria None seen Ur Culture Indicated? Cult not indicated Ketones SARS-CoV-2 (PCR) Negative 10/28/20 10/28/20 19:50 20:01 WBC RBC Hgb Hct MCV MCH MCHC RDW Plt Count Neut % (Auto) Lymph % (Auto) [place] % (Auto) Eos % (Auto) Baso % (Auto) Neut # (Auto) Lymph # (Auto) [place] # (Auto) Eos # (Auto) Baso # (Auto) VBG pH VBG pCO2 VBG pO2 VBG HCO3 VBG Total CO2 VBG O2 Saturation VBG Base Excess Sodium Potassium Chloride Carbon Dioxide BUN Creatinine Estimated GFR BUN/Creatinine Ratio Glucose 593 H* Hemoglobin A1c Lactate Cancelled Calcium Total Bilirubin AST ALT Alkaline Phosphatase Total Protein Albumin Globulin Albumin/Globulin Ratio Procalcitonin Urine Color Urine Appearance Urine pH Ur Specific [place] Urine Protein Urine Glucose (UA) Urine Ketones Urine Occult Blood Urine Nitrate Urine Bilirubin Urine Urobilinogen Ur Leukocyte Esterase Urine RBC Urine WBC Urine Bacteria Ur Culture Indicated? 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 Urinary retention, acute and present on admission. -Patient has been taking tamsulosin and will continue to do so. -Renal ultrasound in the am -Pending results, may be appropriate to consult to urology Diabetes type 2, new diagnosis with an A1c of greater than 14 -He is initiated on glargine 5 units in the am and 10 units at bedtime -Medium dose correctional insulin -Dietary teaching -He will need to be discharged on oral antidiabetics and be set up with a PCP in [place]. Left hand mobility issue and contracture -OT evaluation -MRI without contrast of the left hand, depending on finding, may need ortho consult which has not been ordered Risk stratefication -Lipid panel in the am Social determininants -Lacks PCP. Patient will need referral to [facility] PCP for frequent follow-up, recommend [facility] or [facility] -Methamphetamine use. Social work consult for recovery programs -Transportation, patient may be able to secure transportation to [place] from his [place] VTE prophylaxis: Wells risk score: 0 Enoxaparin 40 mg subQ daily Consults: Wound care and diabetic education Patient is observation status as his stay is not likely to exceed 2 midnights. FEN: NS at 100 ml/hour, carb controlled diet, CMP and magnesium in the am. Dispo: eventual discharge to home Code Status: Full Code as discussed with patient Scores Wells' Criteria for PE Clinical signs and symptoms of DVT: No PE is #1 Dx or equally likely: No Heart rate > 100: No Immobilization at least 3 days or surg in previous 4 weeks: No History of PE or DVT: No Hemoptysis: No Malignancy w/Treatment within 6 months or palliative: No Wells' PE Score total: 0 Quality VTE Deep Vein Thrombosis/Pulmonary Embolism Present on Admission: No
[2020-10-28 21:39] LABS: UR Morphine/Opiate cutoff 300 Negative (Negative); Ur Creatinine Normal (Normal); Ur Specific Gravity Normal (Normal); Urine Amphetamines Positive (Negative); Urine Barbiturates Negative (Negative); Urine Benzodiazepines Negative (Negative); Urine Cocaine Negative (Negative); Urine MDMA Negative (Negative); Urine Methadone Negative (Negative); Urine Methamphetamines Positive (Negative); Urine Oxycodone Negative (Negative); Urine Phencyclidine Negative (Negative); Urine Tetrahydrocannabinol Negative (Negative); Urine Tricyclic Antidepressant Negative (Negative); Urine pH Normal (Normal)
[2020-10-28] MEDS: SENNOSIDES 8.6 MG TABLET 17.2 MG PO (22:39)
[2020-10-28] MEDS: SODIUM CHLORIDE 0.9% 1,000 ML 100 ML IV (22:39)
--- NOTE | 2020-10-28 23:21 | DI.US.S_ITS ---
PROCEDURE: US RENAL COMPLETE INDICATIONS: RUPTURED RENAL CALYX TECHNIQUE: Real-time scanning was performed of the kidneys and bladder, with image documentation. COMPARISON: None. FINDINGS: Kidneys: Kidneys are normal in size. Right kidney measures 12.2 cm long; left kidney measures 13.4 cm long. Right renal cortical thickness is 1.2 cm; left renal cortical thickness is 1.5 cm. Renal cortical echotexture is normal. No hydronephrosis or nephrolithiasis. No suspicious solid mass lesions. Bladder: A Martinez catheter empties the bladder lumen. Miscellaneous: No free pelvic fluid. IMPRESSION: Martinez catheter empties the bladder lumen. Resolution of bilateral hydronephrosis seen by CT scanning. The extravasated urine extending from a ruptured calyx at the right renal collecting system seen by CT scanning 1 day ago is no longer found. Dictated by: Nate James M.D. on 10/29/2020 at 9:15 Approved by: Nate James M.D. on 10/29/2020 at 9:16
--- NOTE | 2020-10-28 23:42 | PC.NURSE ---
2116: A&OX3. 98%RA. oriented pt to the room. pt had some sugar free pudding. [facility]+. JOSÉ MIGUEL. richard patent. bed alarm active.
[2020-10-28] MEDS: INSULIN GLARGINE 100 UNIT/ML 3ML PEN 10 UNIT SUBCUT (23:58)
[2020-10-28] MEDS: INSULIN ASPART 100 UNIT/ML INSULN PEN SUBCUT (23:59)
[2020-10-29 00:14] VITALS: O2SAT 96
[2020-10-29 00:30] VITALS: BP 114/70; PULSE 98; RESP 16; TEMP 36.5; O2SAT 98
--- NOTE | 2020-10-29 01:09 | PC.NURSE ---
0012 patient is oriented except to day of week, but is drowsy. Breath sounds CTA with RA sat of 98%. HRR but tachy; telemetry reading was ST w/rate of 106. Denies nausea. BT present and is passing flatus. Is tender across lower abdomen and rates pain severity as 2/10. Abdomen is soft but mildly distended. Indwelling catheter is patent; urine is clear yellow. Able to move self in bed. Gait not assessed at this time. Has numbness in left hand; is able to make fist and partially open hand but cannot flex at wrist. Also has numbness in left foot. Dry, flaky, erythemic skin on left lower extremity with multiple scabbed skin ulcers noted. Fall risk score is moderate; bed alarm is activated.
[2020-10-29 04:00] VITALS: BP 114/71; PULSE 97; RESP 18; TEMP 36.5; O2SAT 97
[2020-10-29] MEDS: SODIUM CHLORIDE 0.9% 1,000 ML 100 ML IV (05:03)
[2020-10-29 06:29] LABS: Add Manual Diff / Slide Review NO; Basophils Absolute Auto 0 /uL (0-100); Basophils Percent Auto 0.3 % (0-2); Eosinophils Absolute Auto 100 /uL (0-450); Eosinophils Percent Auto 1.2 % (2-4); Hematocrit 39.3 % (41-53); Hemoglobin 13.2 g/dL (13.5-17.5); Lymphocytes Absolute Auto 2300 /uL (1100-4500); Lymphocytes Percent Auto 23.4 % (25-40); Mean Corpuscular HGB Conc 33.5 % (30-36); Mean Corpuscular Hemoglobin 28.9 PG (26-34); Mean Corpuscular Volume 86.4 fL (80-100); Monocytes Absolute Auto 900 /uL (0-900); Monocytes Percent Auto 9.5 % (3-14); Neutrophils Absolute Auto 6500 /uL (1500-7000); Neutrophils Percent Auto 65.6 % (50-75); Platelet Count 241 X10^3/uL (150-400); Red Blood Cell Count 4.55 X10^6/uL (4.5-5.9); Red Cell Distribution Width 12.3 % (11.6-14.8); White Blood Cell Count 9.9 X10^3/uL (4.5-11.0)
[2020-10-29 06:32] LABS: Alanine Aminotransferase 23 IU/L (<50); Albumin 3.5 g/dL (3.5-5.0); Albumin Globulin Ratio 1.1 (1.0-2.8); Alkaline Phosphatase 116 U/L (38-126); Aspartate Aminotransferase 26 IU/L (17-59); BUN Creatinine Ratio 12.1 (6-22); Bilirubin Total 0.4 mg/dL (0.2-1.3); Blood Urea Nitrogen 13 mg/dL (9-20); Carbon Dioxide 37 mmol/L (22-32); Chloride 98 mmol/L (98-107); Cholesterol 197 mg/dL (140-199); Estimated Glomerular Filt Rate > 60.0 mL/min (>60); Globulin 3.1 g/dL (1.7-4.1); Glucose 337 mg/dL (70-100); HDL Cholesterol 32 mg/dL (40-60); HEMOLYSIS 18 (0-50); Lactate (Lactic Acid) 1.6 mmol/L (0.7-2.1); Magnesium 1.6 mg/dL (1.6-2.3); Potassium 3.7 mmol/L (3.4-5.1); Sodium 137 mmol/L (137-145); Total Protein 6.6 g/dL (6.3-8.2)
[2020-10-29 06:33] LABS: Alanine Aminotransferase 23 IU/L (<50); Albumin 3.4 g/dL (3.5-5.0); Albumin Globulin Ratio 1.2 (1.0-2.8); Alkaline Phosphatase 107 U/L (38-126); Aspartate Aminotransferase 27 IU/L (17-59); Bilirubin Total 0.5 mg/dL (0.2-1.3); Bilirubin Unconjugated 0.5 mg/dL (0.0-1.1); Globulin 2.8 g/dL (1.7-4.1); HEMOLYSIS 49 (0-50); Total Protein 6.2 g/dL (6.3-8.2)
[2020-10-29 06:39] LABS: Triglycerides 618 mg/dL (35-150)
[2020-10-29 07:00] VITALS: O2SAT 97
[2020-10-29 07:02] LABS: Thyroid Stimulating Hormone 0.369 uIU/mL (0.47-4.68)
[2020-10-29] MEDS: INSULIN ASPART 100 UNIT/ML INSULN PEN SUBCUT ×2 (07:56→12:24)
[2020-10-29] MEDS: INSULIN GLARGINE 100 UNIT/ML 3ML PEN SUBCUT (07:58)
[2020-10-29 08:15] VITALS: BP 114/60; PULSE 97; RESP 19; TEMP 37.1; O2SAT 97
[2020-10-29] MEDS: SODIUM CHLORIDE 0.9% FLUSH 10 ML IV (09:15)
[2020-10-29] MEDS: ENOXAPARIN 40 MG/0.4 ML SYRINGE SUBCUT (09:15)
[2020-10-29 11:29] VITALS: BP 112/64; PULSE 96; RESP 19; TEMP 36.9; O2SAT 97
--- NOTE | 2020-10-29 11:58 | P.DS_ITS ---
History of Present Illness History of Present Illness Chief complaint: Hyperglycemia, urinary retention Narrative: Rafael Harvey is a 55 y.o. male who was last seen by Dr. Matt for urinary retention. He presented to the ED a day ago initially for problems with his left hand and apparently left. Today he returned do to having urinary retention. He states he gets constipated, and when he is, is unable to urinate. He was found to have a blood glucose of 726 and an A1c of greater than 14, and we were asked to see the patient. He states he is very afraid, he has a 5 month old son with his current girlfriend in [place] and was wanting to know if his diabetes will be passed onto his son. He also believes he may have had a stroke as he has lost the mobility of this left hand and is in a contracted sta te. He denies fever, sweats or chills, dyspnea, chest pain, does endorse a multitude of dermatologic complaints, states the bottom of his feet feel like they are on fire. He states that he was discharged from [facility] after having missed one appointment. He states he is without transportation and currently uses methamphetamine daily. He states he had Hepatitis C from heroin and cocaine use in the past. He does not know anything about his family history stating he was adopted. CT of the abdomen pelvis indicated There is fluid seen adjacent to the right kidney and within the retroperitoneum, which is felt most likely to be related to extravasated urine from a ruptured calyx. Non-contract CT of the head reported to me to be normal. Temp was 97.6?, blood pressure 124/64, heart rate 108, respiratory rate 16, oxygen saturation of 96% on 2 L, he weighs 82 kg with a BMI of 24.4. His WBC is mildly elevated at 12.3, rest of CBC is within normal limits, sodium was 129, potassium 4.6, chloride 86, bicarb 37, BUN 16, creatinine 1.62, GFR is 44.6, glucose was 593, A1c is greater than 14, lactate was 2.7, alk-phos was 152, he has glucose and ketone in his urine, and it is positive for methamphetamine and amphetamines. COVID-19 PCR was negative. Discharge Providers Provider Date of admission: 10/28/20 20:10 Discharge Date: 10/29/20 Consults: 10/28/20 21:24 Consult to Discharge Planning Routine Comment: Needs to establish w/PCP in [place] med assist. 10/28/20 21:25 Consult to Occupational Therapy Evaluate & Treat Comment: Left hand contracture Physician Instructions: Evaluate and treat 10/29/20 11:25 Consult to Occupational Therapy Evaluate & Treat Comment: Physician Instructions: Evaluate and treat left wrist support Discharge provider: Landry Davisdon MD Summary Hospital Course Discharge Diagnosis: 1. Acute urinary retention with bilateral hydronephrosis 2. Rupture of right renal calyx due to urinary retention 3. Uncontrolled type 2 diabetes, new diagnosis 4. Acute left hand contracture, uncertain etiology, but possibly related to adverse effects of severe hyperglycemia 5. Cigarette dependence 6. Chronic methamphetamine use/dependence Patient had over 3 L urine drained with placement of Mratinez catheter in the ED. as noted CT showed bilateral hydronephrosis and a ruptured right renal calyx. Urology was contacted from the ED and recommended to keep catheter in place for 2-3 weeks. On follow-up ultrasound the next day the hydronephrosis has resolved and the fluid extravasation from right kidney was not seen. Patient had blood sugars over 500 without anion gap. This is due diagnosis of type 2 diabetes with poor control, A1c greater than 14. He was hydrated and started on insulin. Blood sugars have improved significantly. He is being discharged on nighttime Lantus insulin and oral metformin which he will start in 2 days to allow him [address] contrast. He was provided teaching on using the insulin pen, checking and monitoring his blood sugars. Also provided dietary counseling. Patient also developed acute left hand contracture 2 or 3 days before admission. This is likely adverse effect of severe hyperglycemia causing a neuropathy. I expect it will reverse with control of blood sugars. Occupational therapy did evaluate him and provided wrist splint. Head CT showed no evidence of stroke. He may need further neurologic workup with EMG/NCV if not improving. Patient is counseled to stop smoking and discontinue methamphetamine and any other drug use. Status at Discharge Cognitive/behavioral status at discharge: oriented Functional status at discharge: independent ambulation Overall status at discharge: patient is progressing back to baseline Time Spent with Patient Time spent: Greater than 30 minutes Exam Vital Signs (past 8 hours): - 10/29/20 04:00 10/29/20 07:00 10/29/20 08:15 Temperature 97.7 F 98.8 F Pulse Rate 97 H 97 H Respiratory Rate 18 19 Blood Pressure 114/71 114/60 Pulse Oximetry 97 97 97 10/29/20 11:29 Temperature 98.4 F Pulse Rate 96 H Respiratory Rate 19 Blood Pressure 112/64 Pulse Oximetry 97 Oxygen Delivery Method Room Air Oxygen Flow Rate 0 Objective Labs Result Diagrams: 10/29/20 05:52 10/29/20 05:52 Labs: Laboratory Results - last 24 hr 10/28/20 10/28/20 10/28/20 16:50 16:50 16:50 WBC 12.3 H RBC 4.96 Hgb 14.3 Hct 43.7 MCV 88.1 MCH 28.8 MCHC 32.7 RDW 12.5 Plt Count 263 Neut % (Auto) 80.6 H Lymph % (Auto) 11.9 L [place] % (Auto) 6.6 Eos % (Auto) 0.4 L Baso % (Auto) 0.5 Neut # (Auto) 9900 H Lymph # (Auto) 1500 [place] # (Auto) 800 Eos # (Auto) 0 Baso # (Auto) 100 VBG pH VBG pCO2 VBG pO2 VBG HCO3 VBG Total CO2 VBG O2 Saturation VBG Base Excess Sodium 129 L Potassium 4.6 Chloride 86 L Carbon Dioxide 37 H BUN 16 Creatinine 1.62 H Estimated GFR 44.6 L BUN/Creatinine Ratio 9.9 Glucose 726 H* Hemoglobin A1c Lactate Calcium 10.2 Magnesium Total Bilirubin 0.4 Conjugated Bilirubin Unconjugated Bilirubin AST 24 ALT 31 Alkaline Phosphatase 152 H Total Protein 7.8 Albumin 4.4 Globulin 3.4 Albumin/Globulin Ratio 1.3 Triglycerides Cholesterol LDL Cholesterol, Calc HDL Cholesterol Procalcitonin < 0.05 TSH Urine Color Urine Appearance Urine pH Ur Specific Gary Urine Protein Urine Glucose (UA) Urine Ketones Urine Occult Blood Urine Nitrate Urine Bilirubin Urine Urobilinogen Ur Leukocyte Esterase Urine RBC Urine WBC Urine Bacteria Ur Culture Indicated? U Opiates 300ng/mL cut Ur Oxycodone Screen Urine Methadone Screen Ur Barbiturates Screen U Tricyclic Antidepress Ur Phencyclidine Scrn Ur Amphetamines Screen U Methamphetamines Scrn Ur MDMA Scrn (Ecstasy) U Benzodiazepines Scrn Urine Cocaine Screen U Marijuana (THC) Screen Ketones 0.53 H SARS-CoV-2 (PCR) 10/28/20 10/28/20 10/28/20 16:50 16:50 16:55 WBC RBC Hgb Hct MCV MCH MCHC RDW Plt Count Neut % (Auto) Lymph % (Auto) [place] % (Auto) Eos % (Auto) Baso % (Auto) Neut # (Auto) Lymph # (Auto) [place] # (Auto) Eos # (Auto) Baso # (Auto) VBG pH 7.37 VBG pCO2 63.6 H VBG pO2 21 L VBG HCO3 37 H VBG Total CO2 38 H VBG O2 Saturation 30 L VBG Base Excess 11.0 H Sodium Potassium Chloride Carbon Dioxide BUN Creatinine Estimated GFR BUN/Creatinine Ratio Glucose Hemoglobin A1c > 14.0 H Lactate 2.7 H Calcium Magnesium Total Bilirubin Conjugated Bilirubin Unconjugated Bilirubin AST ALT Alkaline Phosphatase Total Protein Albumin Globulin Albumin/Globulin Ratio Triglycerides Cholesterol LDL Cholesterol, Calc HDL Cholesterol Procalcitonin TSH Urine Color Urine Appearance Urine pH Ur Specific Gary Urine Protein Urine Glucose (UA) Urine Ketones Urine Occult Blood Urine Nitrate Urine Bilirubin Urine Urobilinogen Ur Leukocyte Esterase Urine RBC Urine WBC Urine Bacteria Ur Culture Indicated? U Opiates 300ng/mL cut Ur Oxycodone Screen Urine Methadone Screen Ur Barbiturates Screen U Tricyclic Antidepress Ur Phencyclidine Scrn Ur Amphetamines Screen U Methamphetamines Scrn Ur MDMA Scrn (Ecstasy) U Benzodiazepines Scrn Urine Cocaine Screen U Marijuana (THC) Screen Ketones SARS-CoV-2 (PCR) 10/28/20 10/28/20 10/28/20 17:40 17:40 17:45 WBC RBC Hgb Hct MCV MCH MCHC RDW Plt Count Neut % (Auto) Lymph % (Auto) [place] % (Auto) Eos % (Auto) Baso % (Auto) Neut # (Auto) Lymph # (Auto) [place] # (Auto) Eos # (Auto) Baso # (Auto) VBG pH VBG pCO2 VBG pO2 VBG HCO3 VBG Total CO2 VBG O2 Saturation VBG Base Excess Sodium Potassium Chloride Carbon Dioxide BUN Creatinine Estimated GFR BUN/Creatinine Ratio Glucose Hemoglobin A1c Lactate Calcium Magnesium Total Bilirubin Conjugated Bilirubin Unconjugated Bilirubin AST ALT Alkaline Phosphatase Total Protein Albumin Globulin Albumin/Globulin Ratio Triglycerides Cholesterol LDL Cholesterol, Calc HDL Cholesterol Procalcitonin TSH Urine Color Yellow Urine Appearance Clear Urine pH 6.0 Ur Specific Gary <=1.005 Urine Protein Negative Urine Glucose (UA) 2+ H Urine Ketones Negative Urine Occult Blood Negative Urine Nitrate Negative Urine Bilirubin Negative Urine Urobilinogen 0.2 Ur Leukocyte Esterase Negative Urine RBC None seen Urine WBC None seen Urine Bacteria None seen Ur Culture Indicated? Cult not indicated U Opiates 300ng/mL cut Negative Ur Oxycodone Screen Negative Urine Methadone Screen Negative Ur Barbiturates Screen Negative U Tricyclic Antidepress Negative Ur Phencyclidine Scrn Negative Ur Amphetamines Screen Positive H U Methamphetamines Scrn Positive H Ur MDMA Scrn (Ecstasy) Negative U Benzodiazepines Scrn Negative Urine Cocaine Screen Negative U Marijuana (THC) Screen Negative Ketones SARS-CoV-2 (PCR) Negative 10/28/20 10/28/20 10/28/20 19:50 19:50 20:01 WBC RBC Hgb Hct MCV MCH MCHC RDW Plt Count Neut % (Auto) Lymph % (Auto) [place] % (Auto) Eos % (Auto) Baso % (Auto) Neut # (Auto) Lymph # (Auto) [place] # (Auto) Eos # (Auto) Baso # (Auto) VBG pH VBG pCO2 VBG pO2 VBG HCO3 VBG Total CO2 VBG O2 Saturation VBG Base Excess Sodium Potassium Chloride Carbon Dioxide BUN Creatinine Estimated GFR BUN/Creatinine Ratio Glucose 593 H* Hemoglobin A1c Lactate 2.7 H Cancelled Calcium Magnesium Total Bilirubin Conjugated Bilirubin Unconjugated Bilirubin AST ALT Alkaline Phosphatase Total Protein Albumin Globulin Albumin/Globulin Ratio Triglycerides Cholesterol LDL Cholesterol, Calc HDL Cholesterol Procalcitonin TSH Urine Color Urine Appearance Urine pH Ur Specific Gary Urine Protein Urine Glucose (UA) Urine Ketones Urine Occult Blood Urine Nitrate Urine Bilirubin Urine Urobilinogen Ur Leukocyte Esterase Urine RBC Urine WBC Urine Bacteria Ur Culture Indicated? U Opiates 300ng/mL cut Ur Oxycodone Screen Urine Methadone Screen Ur Barbiturates Screen U Tricyclic Antidepress Ur Phencyclidine Scrn Ur Amphetamines Screen U Methamphetamines Scrn Ur MDMA Scrn (Ecstasy) U Benzodiazepines Scrn Urine Cocaine Screen U Marijuana (THC) Screen Ketones SARS-CoV-2 (PCR) 10/29/20 10/29/20 10/29/20 05:52 05:52 05:52 WBC 9.9 RBC 4.55 Hgb 13.2 L Hct 39.3 L MCV 86.4 MCH 28.9 MCHC 33.5 RDW 12.3 Plt Count 241 Neut % (Auto) 65.6 Lymph % (Auto) 23.4 L [place] % (Auto) 9.5 Eos % (Auto) 1.2 L Baso % (Auto) 0.3 Neut # (Auto) 6500 Lymph # (Auto) 2300 [place] # (Auto) 900 Eos # (Auto) 100 Baso # (Auto) 0 VBG pH VBG pCO2 VBG pO2 VBG HCO3 VBG Total CO2 VBG O2 Saturation VBG Base Excess Sodium 137 Potassium 3.7 Chloride 98 Carbon Dioxide 37 H BUN 13 Creatinine 1.07 Estimated GFR > 60.0 BUN/Creatinine Ratio 12.1 Glucose 337 H D Hemoglobin A1c Lactate Calcium 9.0 Magnesium 1.6 Total Bilirubin 0.4 Conjugated Bilirubin Unconjugated Bilirubin AST 26 ALT 23 Alkaline Phosphatase 116 Total Protein 6.6 Albumin 3.5 Globulin 3.1 Albumin/Globulin Ratio 1.1 Triglycerides 618 H Cholesterol 197 LDL Cholesterol, Calc TNP HDL Cholesterol 32 L Procalcitonin TSH 0.369 L Urine Color Urine Appearance Urine pH Ur Specific Gary Urine Protein Urine Glucose (UA) Urine Ketones Urine Occult Blood Urine Nitrate Urine Bilirubin Urine Urobilinogen Ur Leukocyte Esterase Urine RBC Urine WBC Urine Bacteria Ur Culture Indicated? U Opiates 300ng/mL cut Ur Oxycodone Screen Urine Methadone Screen Ur Barbiturates Screen U Tricyclic Antidepress Ur Phencyclidine Scrn Ur Amphetamines Screen U Methamphetamines Scrn Ur MDMA Scrn (Ecstasy) U Benzodiazepines Scrn Urine Cocaine Screen U Marijuana (THC) Screen Ketones SARS-CoV-2 (PCR) 10/29/20 10/29/20 05:52 05:52 WBC RBC Hgb Hct MCV MCH MCHC RDW Plt Count Neut % (Auto) Lymph % (Auto) [place] % (Auto) Eos % (Auto) Baso % (Auto) Neut # (Auto) Lymph # (Auto) [place] # (Auto) Eos # (Auto) Baso # (Auto) VBG pH VBG pCO2 VBG pO2 VBG HCO3 VBG Total CO2 VBG O2 Saturation VBG Base Excess Sodium Potassium Chloride Carbon Dioxide BUN Creatinine Estimated GFR BUN/Creatinine Ratio Glucose Hemoglobin A1c Lactate 1.6 Calcium Magnesium Total Bilirubin 0.5 Conjugated Bilirubin 0.0 Unconjugated Bilirubin 0.5 AST 27 ALT 23 Alkaline Phosphatase 107 Total Protein 6.2 L Albumin 3.4 L Globulin 2.8 Albumin/Globulin Ratio 1.2 Triglycerides Cholesterol LDL Cholesterol, Calc HDL Cholesterol Procalcitonin TSH Urine Color Urine Appearance Urine pH Ur Specific [place] Urine Protein Urine Glucose (UA) Urine Ketones Urine Occult Blood Urine Nitrate Urine Bilirubin Urine Urobilinogen Ur Leukocyte Esterase Urine RBC Urine WBC Urine Bacteria Ur Culture Indicated? U Opiates 300ng/mL cut Ur Oxycodone Screen Urine Methadone Screen Ur Barbiturates Screen U Tricyclic Antidepress Ur Phencyclidine Scrn Ur Amphetamines Screen U Methamphetamines Scrn Ur MDMA Scrn (Ecstasy) U Benzodiazepines Scrn Urine Cocaine Screen U Marijuana (THC) Screen Ketones SARS-CoV-2 (PCR) PFSH Medical History BPH (benign prostatic hyperplasia) Constipation No significant medical problems Surgical History No history of previous surgery Family History Other Adopted person Social History household members: none Smoking Status: Current every day smoker alcohol intake: former Discharge Plan Discharge Plan Patient Disposition: Home Provider Discharge Comment: Establish with new PCP. Stop all drug use and smoking. You will need to have catheter removed in 2 to 3 weeks. I am discharging you on bedtime insulin and metformin twice daily by mouth. Wait until Tuesday morning to start on metformin (wait 48 hours because of IV contrast you received with CT). Check blood sugars twice daily at different times and write down readings. You may also need additional evaluation for the left hand contracture. Nursing Discharge Comment: Patient needs instruction on use of insulin pen and checking blood sugars. Discharge patient after has received insulin teaching and evaluated by OT. Discharge orders & Medications Prescriptions: New Lantus Solostar U-100 Insulin 100 unit/mL (3 mL) Insulin Pen 25 unit SUBCUT BEDTIME Qty: 3 RF: 0 metformin 500 mg tablet 500 mg PO BID Qty: 60 RF: 0 (DME) pen needle, diabetic [BD Ultra-Fine Marcela Pen Needle] 32 gauge x 5/32 needle See Dose Instructions .ROUTE .MEDSUPPLY Qty: 30 RF: 0 (DME) lancets [BD Ultra Fine Lancets] 33 gauge misc See Dose Instructions .ROUTE .MEDSUPPLY Qty: 100 RF: 0 Continued tamsulosin [Flomax] 0.4 mg capsule 0.4 mg PO BEDTIME Qty: 30 RF: 0 Follow up/Referrals: Orestes Matt DO [Physician] - Diet/Activity/Treatments Diet: Carb-consistent/Diabetic Visit Report/Discharge Packet Instructions: How to Care for Your Martinez Catheter -- Male, DI for Diabetes Type 2 Discharge Data Attending Provider: Anaya Elmore VTE Deep Vein Thrombosis/Pulmonary Embolism Present on Admission: No
--- NOTE | 2020-10-29 12:10 | OT.IP.EVAL ---
Past Medical History (Last Reviewed 10/28/20 @ 23:33 by TARYN Aburto) BPH (benign prostatic hyperplasia) Constipation No significant medical problems Surgical History (Last Reviewed 10/28/20 @ 23:33 by TARYN Aburto) No history of previous surgery Occupational Therapy Inpatient Evaluation/Re-Eval M1 PT/OT-IP Prior Functional Status Start: 10/29/20 12:40 Freq: NEEDED Status: Active Protocol: Document 10/29/20 12:42 [facility] (Rec: 10/29/20 13:42 [facility] [id number]) Medical Review Prior Functional Status Communication Independent Mobility and Gait Independent with no devices. Activities of Daily Living and IADL's Completely independent with all ADL, IADL, pt does not drive. Prior Functional Level (Other details) Pt has a 5 month one with his girlfriend. Pt's states girlfriend will be able to assist him if needed. Social History Household Members none Living Arrangements Apartment/Condo Number of Floors (Floors) One Floor Number of Stairs To Enter/Railing? 4 steps with bilateral rails. Home Environment Standard Height Toilet,Tub/ Shower M2 OT-IP Current Condition Start: 10/29/20 13:43 Freq: Status: Active Protocol: Document 10/29/20 12:42 [facility] (Rec: 10/29/20 13:42 [facility] [id number]) Occupational Therapy Current Condition Current Condition Evaluation Date 10/29/20 Treatment Diagnosis Urinary retention, new diagnosis diabetes type 2, left hand weakness Diagnosis Onset Date 10/28/20 Post Operative Precautions Other Precautions Left wrist brace ordered by Dr. Davidson M3 OT- IP Subjective and Pain Start: 10/29/20 13:43 Freq: Status: Active Protocol: Document 10/29/20 12:42 [facility] (Rec: 10/29/20 13:42 [facility] [id number]) OT- Subjective Occupational Therapy Visit Type Type Initial Evaluation Visit Start Time 10:06 Visit Stop Time 12:10 Total Visit Minutes 61 Notes Pt seen for split treatment [id number] and [id number]. Occupational Therapy Visit Comments Patient Comments Pt's girlfriend during OT eval . Patient/Caregiver Goals TO go home and be able live a healthier lifestyle. OT Pain Assessment Pain When Pain Assessed At Rest Pain Present Pain Present Denied Pain M4 OT- IP ADL's Start: 10/29/20 13:43 Freq: Status: Active Protocol: Document 10/29/20 12:42 [facility] (Rec: 10/29/20 13:42 [facility] [id number]) OT [id number] Comments OT Self-Feeding Comments Assist with set-up due to decreased coordination of left hand. OT ADL-Grooming General Evaluation Areas Needing Assistance Retrieving/Set-up of Grooming Items OT ADL-Oral Care General Eval Oral Care Ability Standby Assistance Areas of Assistance Retrieving/Set-Up of Items OT ADL-Dressing General Eval Lower Body Dressing Ability Standby Assistance Comments OT Dressing Comments Pt mainly use of right hand to chau/doff his socks, pt able to assist with left hand for 15% of the task. OT ADL-Toileting Comments OT Toileting Comments Pt not having to go at this time and has ramos catheter in place. Pt states at home use of claw foot tub and door knob to assist to get up. M5 OT- IP IADL's Start: 10/29/20 13:43 Freq: Status: Active Protocol: Document 10/29/20 12:42 [facility] (Rec: 10/29/20 13:42 [facility] [id number]) OT-Instrumental Activities of Daily Living Home Safety Awareness Awareness of Need for Assistance at Home Good Awareness Ability to Problem Solve Emergency Able to Problem Solve Situations Medication Management Medication Management No Deficits Identified Money Management Money Management No Deficits Identified Meal Preparation Meal Preparation Comments Pt would benefit form assist now. Technical Developer Technical Developer Comments Pt would benefit from assist now. M6 OT- IP Functional Cognition Start: 10/29/20 13:43 Freq: Status: Active Protocol: Document 10/29/20 12:42 [facility] (Rec: 10/29/20 13:42 [facility] [id number]) Cognitive Factors Limiting Selfcare Function Cognitive Ability Level of Alertness Alert Patient Orientation Name,Place,Situation Attention Span Ability Capable of Focused Attention, Capable of Sustained Attention Ability to Follow Commands Able to Follow Multi-Step Commands Memory Description No Deficits Noted Safety Awareness No Deficits Noted Problem Solving Ability No deficits Noted Cognitive Comments Cognitive Assessment Comments Pt baseline for cognitive needs. M7 OT- IP Mobility and Balance Start: 10/29/20 13:43 Freq: Status: Active Protocol: Document 10/29/20 12:42 [facility] (Rec: 10/29/20 13:42 [facility] [id number]) OT- Bed Mobility Assessment Rolling Level of Assistance Standby Assistance Supine to Sit Supine to Sit Assist Standby Assistance OT-Transfer Assessment Sit to and From Stand Sit to and from Stand Standby Assistance Transfers Transfer Ability Standby Assistance Technique Transfer Destination Bed,Chair,Toilet Transfer Technique Stand Step Pivot Devices Transfer Assistive Devices None Comments Mobility Comments SBA with no device for level surfaces. OT- Balance Assessment Sitting Balance and Reactions Static Sitting Balance Ability Normal Dynamic Sitting Balance Ability Normal Standing Balance and Reactions Static Standing Balance Ability Good M8 OT- IP Objective Assessments Start: 10/29/20 13:43 Freq: Status: Active Protocol: Document 10/29/20 12:42 [facility] (Rec: 10/29/20 13:42 [facility] [id number]) OT Gross Range of Motion Upper Extremity Range of Motion Assessment Within Functional Limits ROM Impairments PROM WFL for BUE OT Strength Upper Extremity Strength Assessment Left Impaired Comments Strength Comments Left hand wrist 0/5, left fingers 2-/5 Right prototype deicer assembler 87.5#, Left prototype deicer assembler 33 .5# Lateral pinch right 30.5#, left 12# OT- Coordination Assessment Upper Extremity Finger to Nose Test Left UE Impaired OT-Muscle Tone Assessment Muscle Tone WNL Yes OT Sensation Assessment Comments Summary Comments Decreased light touch at left forearm, wrist , and hand. Pt able to tell sensation in left hand but not as sensitive as his right hand. M9 OT- IP Assessment and Plan Start: 10/29/20 13:43 Freq: Status: Active Protocol: Document 10/29/20 12:42 [facility] (Rec: 10/29/20 13:42 [facility] [id number]) OT Summary Assessment and Plan Potential Rehabilitation Potential Good Analytic Complexity at Evaluation Low Summary OT Impairments Coordination,Dressing,Bathing, Shower Transfers,Activity Tolerance Progress Towards Goals Progressing Toward Goals Assessment Summary Pt MOD complexity and main barriers are now use of catheter, new diagnosis of diabetes, and not able to use his left hand functionally and now heavily relying on his right hand for needs. Physician feel that decreased hand function is from severe hyperglycemia causing neuropathy. Pt has poor posture with flexed trunk, neck and states sleep with arms up over his head. Pt did states about 1/2 year ago threw a towel behind his head with his left hand and from that point on noted decreased AROM with left arm. Suggested if pt's left hand function does not return to touch base with his physician for possible further follow up. Goals Self-Feeding Goal Independent Grooming Goal Independent Dressing Goal Independent Toileting Goal Independent Bathing Goal Independent Toilet Transfer Goal Independent Shower Transfer Goal Independent Days to Meet Goals 2 Frequency of Treatment Frequency Of Treatment Once a Day Treatment Plan OT Treatment Plan ADL Training,Functional Mobility,Therapeutic Exercises ,Patient/Family Education, Discharge Planning Discharge Recommendations OT Discharge Recommendations Home with Assistance Other Discharge Recommendations Pending progress of left hand , may benefit hand therapist pending further assessments such as EMG, cervical x-ray, etc. Transportation Needs at Discharge Private Vehicle
--- NOTE | 2020-10-29 12:18 | DIET.PN ---
Dietary Progress Note Assessment: 55y M admitted for urinary retention and hyperglycemia referred to nutrition for DM teaching. Pt endorses polyuria and polydipsia as well as unhealing wounds on legs (various large and small scabs). Chart review shows point in time glucose levels of 338 and 452 as far back as 2017 indicating poor glycemic control over several years. Pt endorses daily meth use. It is common to see disregulated eating and reliance on ultraprocessed, sugar sweetened food/beverages c regular meth use. Pt drinks a lot of soda and juice as well as eats pasta most days. When discussing alternate beverages, pt asked if apple or cranberry juice would be any better, and says he is actually sick of eating pasta and likes a variety of foods. Pt walks occasionally and says a positive stress reliever is fishing. Pt would like to have lifestyle control of DM rather than being insulin dependent, but understands insulin is necessary for now with A1c >14. Pt has non-severe weight loss of 8% over past 9mo. HT: 182.8cm WT: 78kg UBW: 85kg BMI: 23.3 Labs: A1c >14, BG >500, Ketones 0.53 H, TG 618 H MNA: 12 Power: 22 Nutrition Diagnosis: altered nutrition related laboratory values (BG, A1c, TG) r/t endocrine dysfunction and excessive intake of simple carbohydrates aeb pt admitted c BG >600, A1c >14, TG 618, pt endorses weight loss, polydipia, polyuria, unhealing wounds, pt reports daily intake of juice, soda, and pasta. Interventions: 1. Educated pt and partner on BG, A1C, and how high levels manifest as pts current sx. 2. Using handout, taught CCD with CHO set to 45-60 at meals, 15-30 at snacks, and gave examples of foods which contain no CHO. 3. Helped pt problem solve meal and beverage alternate ideas. Pt enjoys eggs and a variety of animal protein foods. Pt enjoys SF Ice drinks. 4. Stressed imperative nature of diet changes. Encouraged habit change and positive stress management techniques. 5. Encouraged pt to enroll in DSME for f/u c RD to manage dietary choices. Diet Order: CCD4 EER: 45-60g CHO c meals, 15-30g CHO snacks, max 4oz 100% juice/d with preference for abstaining Monitoring/Evaluations: encourage pt to enroll in DSME in [place] or [place]
--- NOTE | 2020-10-29 13:13 | CM.DANOTE ---
Patient is a 55 year old male who was admitted on 10/28/20 for Abd Pain and high blood sugars. Pt has [facility] and [facility] for insurance and his PCP is not listed. EMR was reviewed. Per , pt with uncontrolled blood glucose of 726. Pt's UDS also positive for amphetamines/methamphetamines. SW met bedside with pt and Sig Other and explained role and pt confirms he lives in [place] alone but has Sig Other who lives in [place] with their 5 yo son and they are still together and she is supportive but they do not live together. Sig Other is clean and sober but pt admits to daily meth use and confirms he has a hx of treatment in the past but does not feel that he needs formal tx and that I know what I need to do, I just need to follow through and do it. Pt confirms he has a remote hx of alcohol abuse and heroin addition but states since he was dx with Hep C he stopped drinking and using heroin. Pt aware of the CD resources available. Pt does not currently work but receives S.S.I for his monthly income and does not drive as he does not currently have a vehicle. Pt unsure if he has Medicaid transport benefits but agreeable to SW calling to confirm. Pt states that for PCP his preference would be [place] if he will have regular appointments or [place] if his appointments would not be very often. Per Hospitalist, likely close follow up after d/c with PCP due to ramos cath and new diabetes dx. KB called Medicaid and confirmed pt has transportation benefits. KB met bedside with pt and Sig Other again and provided info on Medicaid transportation benefits and their contact information for future medical appointments. KB also provided the [place] PCP clinic names and numbers and the [facility] contracted physicians for [place] in case needed. Energy Management Specialist met with pt and yodit other and completed teaching/education and handouts and RN completed insulin teaching bedside. Pt and Sig other appreciative of all the information and feel stable for d/c home today. Plan: Patient to d/c home today via Sig Other POV and close follow up with establishing with PCP and pt has resources provided. VANESSA Mcdaniel Discharge Planning/Care Management CM Discharge Assessment Start: 10/29/20 13:11 Freq: Status: Active Protocol: Document 10/29/20 13:12 BF (Rec: 10/29/20 13:13 BF [id number]) Discharge Planning Assessment Assigned Vb Developer VANESSA Longo DPOA/Assigned Designee Name none Advance Directives? No Advance Directives on File No History Provided By Patient,Significant Other, Medical Record Has Patient been admitted in last 30 No days? Prior Living Arrangements Apartment/Condo Household Members none Type of transporation used prior to Relies on Others admit Independent with ADL's Yes Is patient alert and oriented? Yes Needs Assistance With Managing Medications Caregiver for Another No: Has son but not primary CG of him Comment Home Barriers to Discharge Yes Comment no PCP, does not drive, daily meth use Discharge Plan Home Transportation Arrangement Girlfriend bedside and can provide transport today Referrals Initiated Other Additional Comment Medicaid transport and PCP clinics Whiteboard Updated in Patient Room with Yes name and ext. # of Vb Developer Review Status In Process Please Provide Date Initial DC 10/29/20 Assessment Was Performed Next Review Type Continued Stay Review
--- NOTE | 2020-10-29 13:24 | PC.NURSE ---
Braided Rug Maker provided diabetes diet education to patient. This ad copy writer provided education on insulin use. Discharge paperwork reviewed and questions answered. Given leg bag for urinary catheter and taught how to use.All personal belongings given back to patient. Escorted off of unit via wheelchair at 1:25 with partner who will drive him home.
== END 2020-10-29 13:25 | disposition home or self-care (01) ==
LOC: ED 20:10 → AC 20:10
PROVIDERS: Admitting Provider Nurse Practitioner Family; Emergency Provider Emergency Medicine; Visit Provider Nurse Practitioner Family
DX: R33.9 Retention of urine, unspecified (principal); N13.30 Unspecified hydronephrosis; N28.89 Other specified disorders of kidney and ureter; E11.65 Type 2 diabetes mellitus with hyperglycemia; M24.542 Contracture, left hand; F15.90 Other stimulant use, unspecified, uncomplicated; F17.210 Nicotine dependence, cigarettes, uncomplicated; Z20.822 Contact with and (suspected) exposure to COVID-19
CPT/HCPCS: 36415; 36592; 51701; 70450; 71045; 71260; 74177; 74178; 76770; 80053; 80061; 80076; 80305; 81001; 82009; 82805; 82947; 82962; 83036; 83605; 83735; 84145; 84443; 85025; 87040; 87635; 93005; 96360; 96361; 96372; 97166; 97530; 99285; C9803; G0378; J1650; Q9967

== ENCOUNTER 2020-10-30 22:53 | Emergency (ER) | payer OTHER, MEDICAID, SELFPAY ==
[2020-10-28 21:23] VITALS: BMI 24.4
[2020-10-30 22:55] VITALS: BP 131/79; PULSE 105; RESP 25; TEMP 36.6; O2SAT 98
--- NOTE | 2020-10-30 23:04 | ED_ITS ---
HPI - Abdominal Pain General Chief Complaint: Urogenital-Male Stated Complaint: pain, urinary cath not working Time Seen by Provider: 10/30/20 22:55 Source: patient Mode of arrival: Ambulatory Limitations: no limitations History of Present Illness HPI narrative: 55-year-old male smoker with history of diabetes and recent urinary retention presents with a chief complaint of severe lower abdominal pain and a complaint that his catheter is not draining. He was recently admitted with complications of diabetes in urinary retention and was discharged yesterday with a properly draining catheter in place and encouragement to follow up with Urology. He denies any fever chills. He denies nausea or vomiting. His pain is 10/10, worse with motion and improves slightly with rest. MD complaint: abdominal pain Onset (ago): hour(s) Pain Consistency: constant Location: suprapubic Severity: severe Severity scale (1-10): 10 Quality: stabbing, aching and fullness Radiation: none Migration to: no migration Relieving factors: rest Exacerbating factors: movement Associated symptoms: nausea Related Data Previous Rx's Medication Instructions Recorded insulin glargine [Lantus Solostar 25 unit SUBCUT BEDTIME #3 ml 10/29/20 U-100 Insulin] lancets [BD Ultra Fine Lancets] #100 each 10/29/20 metformin 500 mg PO BID #60 tab 10/29/20 pen needle, diabetic [BD #30 each 10/29/20 Ultra-Fine Marcela Pen Needle] tamsulosin [Flomax] 0.4 mg PO BEDTIME #30 cap 10/29/20 Allergies Allergy/AdvReac Type Severity Reaction Status Date / Time codeine [CODEINE] AdvReac Intermediate GI Upset Verified 10/25/20 16:13 Review of Systems Constitutional Constitutional: Denies chills, Denies fatigue, Denies fever(s), Denies frequent falls, Denies lethargy and Denies weakness Eyes Eyes: Denies change in vision, Denies eye discharge, Denies irritation and Denies loss of vision ENT Ears, Nose, Mouth, and Throat: Denies change in voice, Denies dizziness, Denies neck pain, Denies sore throat and Denies throat swelling Cardiovascular Cardiovascular: Denies chest pain, Denies irregular heart rhythm, Denies lightheadedness, Denies palpitations, Denies dyspnea, Denies dyspnea on exertion and Denies orthopnea Respiratory Respiratory: Denies cough, Denies dyspnea, Denies dyspnea on exertion and Denies wheezing Gastrointestinal Gastrointestinal: Denies abdominal pain, Denies change in bowel habits, Denies diarrhea, Denies nausea and Denies vomiting Genitourinary Comments: Suprapubic pain and no drainage in the catheter Musculoskeletal Musculoskeletal: Denies neck pain and Denies numbness Integumentary/Breasts Skin/Breast: Denies pruritus, Denies erythema, Denies rash and Denies wounds Neurologic Neurologic: Denies behavioral changes, Denies confusion, Denies dizziness, Denies frequent falls, Denies loss of vision, Denies numbness and Denies weakness Psychiatric Psychiatric: Denies anxiety, Denies behavioral changes, Denies confusion, Denies depression, Denies homicidal ideation and Denies suicidal ideation Endocrine Endocrine: Denies fatigue, Denies flushing and Denies palpitations Hematologic/Lymphatic Hematologic/Lymphatic: Denies easy bruising Allergic/Immunologic Allergic/Immunologic: Denies urticaria, Denies throat swelling and Denies wheezing Patient History Medical History BPH (benign prostatic hyperplasia) Constipation No significant medical problems Surgical History No history of previous surgery Family History Other Adopted person Social History household members: none Smoking Status: Current every day smoker alcohol intake: former Smoking Status: Current every day smoker alcohol intake frequency: 0-2 drinks per day Substance Use Type: does not use Exam Narrative Exam Narrative: GEN: AOx3 and in obvious distress, rubbing his suprapubic region EYES: Pupils are equal, round, and reactive to light and accommodation. Ext raoccular muscles are intact bilaterally. There is no subconjunctival hemorrhage or exudate. CHEST: Lungs are clear to auscultation bilaterally and free of wheezes, rales, or rhonchi. Heart rate is regular rhythm, there are no murmurs, clicks, rubs, or gallops. There is no chest wall tenderness. ABD: Abdomen is full, tender. There is no guarding or rebound. Bowel sounds are normal in all 4 quadrants. There is no mass or organomegaly. EXT: Full painless ROM of all extremities with no loss of sensation or strength. SKIN: Warm, pink, and dry. No erythema or rash Initial Vital Signs Initial Vital Signs: Vital Signs Temperature 97.9 F 10/30/20 22:55 Pulse Rate 105 H 10/30/20 22:55 Respiratory Rate 25 H 10/30/20 22:55 Blood Pressure 131/79 10/30/20 22:55 Pulse Oximetry 98 10/30/20 22:55 Course Orders Ordered: catheter flushed by nursing, resulted in drainage of nearly 1L urine and complete resolution of symptoms Vital Signs Vital signs: Vital Signs - 8 hr 10/30/20 22:55 Temperature 97.9 F Pulse Rate 105 H Respiratory Rate 25 H Blood Pressure 131/79 Pulse Oximetry 98 Discharge Plan Departure Patient Disposition: Home Clinical Impression: Complication of Ramos catheter Qualifiers: Encounter type: initial encounter Qualified Code(s): T83.9XXA - Unspecified complication of genitourinary prosthetic device, implant and graft, initial encounter Instructions: How to Care for Your Ramos Catheter -- Male Activity Restrictions/Additional Instructions: *You have been diagnosed with [ pain due to ramos catheter problem ] *What to do: *Continue to take medications as directed *Follow up with your primary care provider in 2-3 days, call for an appointment. Let them know you were seen in the Emergency Department and that we ask that you be seen in follow up *Return to ER if you should have any new, worsening or concerning symptoms Prescriptions: No Action Lantus Solostar U-100 Insulin 100 unit/mL (3 mL) Insulin Pen 25 unit SUBCUT BEDTIME Qty: 3 RF: 0 metformin 500 mg tablet 500 mg PO BID Qty: 60 RF: 0 (DME) pen needle, diabetic [BD Ultra-Fine Marcela Pen Needle] 32 gauge x 5/32 needle See Dose Instructions .ROUTE .MEDSUPPLY Qty: 30 RF: 0 (DME) lancets [BD Ultra Fine Lancets] 33 gauge misc See Dose Instructions .ROUTE .MEDSUPPLY Qty: 100 RF: 0 tamsulosin [Flomax] 0.4 mg capsule 0.4 mg PO BEDTIME Qty: 30 RF: 0
--- NOTE | 2020-10-30 23:42 | PC.NURSE ---
flushed catheter with 10cc of saline and removed 10 ccs. reconnected leg bag and urine began flowing. Initially removed 600 cc of urine. Reports pain is gone.
[2020-10-31 00:05] VITALS: BP 112/68; PULSE 95; RESP 20; O2SAT 96
== END 2020-10-31 00:05 | disposition home or self-care (01) ==
PROVIDERS: Emergency Provider Emergency Medicine
DX: T83.9XXA Unspecified complication of genitourinary prosthetic device, implant and graft, initial encounter (principal); R10.30 Lower abdominal pain, unspecified; R11.0 Nausea; E11.8 Type 2 diabetes mellitus with unspecified complications; Z79.4 Long term (current) use of insulin; N40.0 Benign prostatic hyperplasia without lower urinary tract symptoms
CPT/HCPCS: 99281

== ENCOUNTER 2020-11-14 16:14 | Emergency (ER) | payer OTHER, MEDICAID, SELFPAY ==
[2020-10-28 21:23] VITALS: BMI 24.4
[2020-11-14 16:22] VITALS: BP 124/79; PULSE 92; RESP 18; TEMP 36.3; O2SAT 97; BMI 24.4
--- NOTE | 2020-11-14 17:16 | ED.MALEGU ---
HPI - Male Genitourinary General Chief complaint: Urogenital-Male Stated complaint: NEEDS CATHETER TAKEN OUT Time Seen by Provider: 11/14/20 17:16 Source: patient Mode of arrival: Ambulatory Limitations: no limitations History of Present Illness HPI Narrative: Patient is 55-year-old male requesting for Martinez catheter to be pulled out. It was placed on 10/28/2020 for acute urinary retention which actually caused a ruptured renal calyx. Urology was consulted at that time who recommended Martinez catheter be left in for few weeks and then removed. The patient was diagnosed with new onset diabetes at that time he is currently on insulin. He has [facility]. He denies any abdominal pain back pain fever or chills. Related Data Previous Rx's Medication Instructions Recorded insulin glargine [Lantus Solostar 25 unit SUBCUT BEDTIME #3 ml 10/29/20 U-100 Insulin] lancets [BD Ultra Fine Lancets] #100 each 10/29/20 metformin 500 mg PO BID #60 tab 10/29/20 pen needle, diabetic [BD #30 each 10/29/20 Ultra-Fine Marcela Pen Needle] tamsulosin [Flomax] 0.4 mg PO BEDTIME #30 cap 10/29/20 Allergies Allergy/AdvReac Type Severity Reaction Status Date / Time codeine [CODEINE] AdvReac Intermediate GI Upset Verified 11/14/20 16:22 Review of Systems Review of Systems Narrative: GENERAL: Denies chills, fatigue, malaise, fever, sweats, travel HEENT: Denies sinus pain, ear pain, sore throat, difficulty swallowing, neck pain RESPIRATORY: Denies dyspnea, cough, wheezing, hemoptysis, sputum. CARDIOVASCULAR: Denies chest pain, palpitations, orthopnea, edema GASTROINTESTINAL: Denies nausea, vomiting, abdominal pain, diarrhea, constipation, melena. : See HPI MUSCULOSKELETAL: Denies weakness, joint pain, or bony pain SKIN: No rash, no erythema, no pruritus NEUROLOGIC: Denies weakness, dizziness, headache, numbness, change in speech, confusion PSYCHIATRIC: No concerning psychosocial issues. 12 point review of systems is negative except for those stated above and HPI Patient History Medical History Acute urinary retention BPH (benign prostatic hyperplasia) Constipation Diabetes type 2, uncontrolled Methamphetamine use No significant medical problems Surgical History No history of previous surgery Family History Other Adopted person Social History household members: none Smoking Status: Current every day smoker alcohol intake: former Smoking Status: Current every day smoker alcohol intake frequency: 0-2 drinks per day Substance Use Type: does not use Exam Initial Vital Signs Initial Vital Signs: Vital Signs Temperature 97.3 F L 11/14/20 16:22 Pulse Rate 92 H 11/14/20 16:22 Respiratory Rate 18 11/14/20 16:22 Blood Pressure 124/79 11/14/20 16:22 Pulse Oximetry 97 11/14/20 16:22 GENERAL: Well-appearing, well-nourished and in no acute distress. CARDIOVASCULAR: peripheral pulses in tact, cap refill <2 sec RESPIRATORY: No respiratory distress, speaks in full sentences without difficulty ABDOMEN: Soft, nontender, no guarding or rebound : No flank pain Martinez catheter in place EXTREMITIES: Normal range of motion, no clubbing or edema. Neurovascularly intact NEUROLOGICAL: Cranial nerves II through XII grossly intact. Normal gait and speech. SKIN: Warm, dry, no petechiae, no rashes or lesions. Course Vital Signs Vital signs: Vital Signs - 8 hr 11/14/20 16:22 Temperature 97.3 F L Pulse Rate 92 H Respiratory Rate 18 Blood Pressure 124/79 Pulse Oximetry 97 MDM - Male Genitourinary [facility] [place] Narrative Medical decision making narrative: I saw and evaluated patient initially. I actually spoke with the urologist when Martinez catheter was placed and about the ruptured calyx. At this time the Martinez catheter has been in place for a couple of weeks. I feel it is worth while his to trial of removing the Martinez catheter. I spoke with patient about this and made him aware that Martinez catheter may need to be put. He was agreeable to have it removed. He was monitored for a while after it was removed he was given multiple cups of water to try to insure urination. He was bladder scanned at 291 in his bladder. He said he felt like he could urinate but still had urinated. I discussed with him that it was imperative he return to the ED if he does not urinate by midnight. Discharge Plan Departure Patient Disposition: Home Clinical Impression: Acute urinary retention, Complication of Martinez catheter Instructions: DI for Urinary Retention in Men Activity Restrictions/Additional Instructions: *You have been diagnosed with urinary retention *What to do: You may need a Martinez catheter again. Please monitor if you have not urinated in 8-10 hours return to the ER *Continue to take medications as directed *Follow up with your primary care provider in 2-3 days *Return to ER if you should have no urination for 8-10 hours, increase abdominal pain, back pain or any new, worsening or concerning symptoms Prescriptions: No Action Lantus Solostar U-100 Insulin 100 unit/mL (3 mL) Insulin Pen 25 unit SUBCUT BEDTIME Qty: 3 RF: 0 metformin 500 mg tablet 500 mg PO BID Qty: 60 RF: 0 (DME) pen needle, diabetic [BD Ultra-Fine Marcela Pen Needle] 32 gauge x 5/32 needle See Dose Instructions .ROUTE .MEDSUPPLY Qty: 30 RF: 0 (DME) lancets [BD Ultra Fine Lancets] 33 gauge misc See Dose Instructions .ROUTE .MEDSUPPLY Qty: 100 RF: 0 tamsulosin [Flomax] 0.4 mg capsule 0.4 mg PO BEDTIME Qty: 30 RF: 0
--- NOTE | 2020-11-14 17:23 | PC.NURSE ---
Patient presents to ER today requesting removal of his ramos cath. Patient states he has not been able to get in for follow up with PCP or urology.
== END 2020-11-14 19:35 | disposition home or self-care (01) ==
PROVIDERS: Emergency Provider Emergency Medicine
DX: T83.9XXA Unspecified complication of genitourinary prosthetic device, implant and graft, initial encounter (principal); R33.8 Other retention of urine; E11.8 Type 2 diabetes mellitus with unspecified complications; Z79.4 Long term (current) use of insulin
CPT/HCPCS: 99282

== ENCOUNTER 2020-11-15 09:42 | Emergency (ER) | payer OTHER, MEDICAID, SELFPAY ==
[2020-10-28 21:23] VITALS: BMI 24.4
[2020-11-15] VITALS (13 sets, daily range): BP systolic 115–134; BP diastolic 63–86; PULSE 88–124; RESP 20–22; TEMP 36.6; O2SAT 92–100; BMI 23.8
--- NOTE | 2020-11-15 09:44 | ED.MALEGU ---
HPI - Male Genitourinary General Chief complaint: Urogenital-Male Stated complaint: urinary retention Time Seen by Provider: 11/15/20 09:43 Source: patient, EMS and old records reviewed Mode of arrival: EMS Limitations: no limitations History of Present Illness HPI Narrative: Patient is a 55-year-old male who has history of urinary retention and ruptured renal calyx. He was seen evaluated last night for Deng catheter removal he did not urinate prior to discharge. He returns today with severe abdominal pain and minimal urinary output. Is currently refusing Deng catheter to be replaced. He is in severe pain. Duration: constant Location: abdomen Related Data Previous Rx's Medication Instructions Recorded insulin glargine [Lantus Solostar 25 unit SUBCUT BEDTIME #3 ml 10/29/20 U-100 Insulin] lancets [BD Ultra Fine Lancets] #100 each 10/29/20 metformin 500 mg PO BID #60 tab 10/29/20 pen needle, diabetic [BD #30 each 10/29/20 Ultra-Fine Marcela Pen Needle] tamsulosin [Flomax] 0.4 mg PO BEDTIME #30 cap 10/29/20 cephalexin [Keflex] 500 mg PO TID #21 cap 11/15/20 Allergies Allergy/AdvReac Type Severity Reaction Status Date / Time codeine [CODEINE] AdvReac Intermediate GI Upset Verified 11/14/20 16:22 Review of Systems Review of Systems Narrative: GENERAL: Denies chills,fever HEENT: Denies throat pain RESPIRATORY: Denies dyspnea, cough, wheezing CARDIOVASCULAR: Denies chest pain, palpitations GASTROINTESTINAL: Denies nausea, vomiting : See HPI MUSCULOSKELETAL: Denies extremity pain, injury SKIN: No rash, no laceration, no pruritus NEUROLOGIC: Denies weakness, dizziness, headache, numbness 8 point review of systems is negative except for those stated above and HPI Patient History Medical History Acute urinary retention BPH (benign prostatic hyperplasia) Constipation Diabetes type 2, uncontrolled Methamphetamine use No significant medical problems Surgical History No history of previous surgery Family History Other Adopted person Social History household members: none Smoking Status: Current every day smoker alcohol intake: former Smoking Status: Current every day smoker alcohol intake frequency: 0-2 drinks per day Substance Use Type: does not use Exam Initial Vital Signs Initial Vital Signs: Vital Signs Temperature 97.8 F 11/15/20 09:43 Pulse Rate 114 H 11/15/20 09:43 Respiratory Rate 20 11/15/20 09:43 Blood Pressure 134/78 11/15/20 09:43 Pulse Oximetry 92 11/15/20 09:43 GENERAL: Patient in severe pain and in no acute distress. HEENT: Head atraumatic,EOMI, pupils reactive, face symmetric, moist mucous membranes CARDIOVASCULAR: Regular rate and rhythm without murmurs, rubs or gallops. RESPIRATORY: Breath sounds equal bilaterally, no wheezes rales or rhonchi. ABDOMEN: Soft, nontender. Normoactive bowel sounds all 4 quadrants. No guarding or rebound. : Deng catheter now placed, some gross pus noted EXTREMITIES: Normal range of motion, no clubbing or edema. Neurovascularly intact NEUROLOGICAL: Alert and oriented x4.Normal gait and speech. SKIN: Warm, dry, no laceration, no petechiae, no rashes or lesions. Course Orders Ordered: ED Orders 11/15/20 10:32 Urinalysis and Microscopic Stat Urine Culture Stat Urine Drug Screen, Rapid Stat 11/15/20 11:27 Complete Blood Count AUTO DIFF Stat Comprehensive Metabolic Panel Stat Lactate (Lactic Acid) Stat Procalcitonin Stat 11/15/20 12:25 Blood Culture Stat Discontinued Medications Sodium Chloride (Normal Saline 0.9%) 1,000 mls @ 1,000 mls/hr IV BOLUS ONE Stop: 11/15/20 12:16 Last Infusion: 11/15/20 13:37 Dose: 0 mls/hr Documented by: Admin: 11/15/20 11:31 Dose: 1,000 mls/hr Documented by: ANGY Ceftriaxone Sodium/Dextrose (Rocephin) 1 gm in 50 mls @ 100 mls/hr IV NOW ONE Stop: 11/15/20 11:46 Last Infusion: 11/15/20 13:28 Dose: 0 mls/hr Documented by: Infusion: 11/15/20 12:28 Dose: 100 mls/hr Documented by: Infusion: 11/15/20 11:31 Dose: 0 mls/hr Documented by: Admin: 11/15/20 11:31 Dose: 100 mls/hr Documented by: ANGY Lorazepam (Lorazepam 2 Mg/Ml Inj) 1 mg IM NOW ONE Stop: 11/15/20 09:55 Last Admin: 11/15/20 09:58 Dose: 1 mg Documented by: ANGY Vital Signs Vital signs: Vital Signs - 8 hr 11/15/20 09:43 11/15/20 09:55 11/15/20 10:00 Temperature 97.8 F Pulse Rate 114 H 107 H 110 H Respiratory Rate 20 Blood Pressure 134/78 Pulse Oximetry 92 100 100 11/15/20 10:30 11/15/20 10:40 11/15/20 10:50 Temperature Pulse Rate 124 H 106 H 108 H Respiratory Rate 22 Blood Pressure 124/63 119/69 Pulse Oximetry 96 99 95 11/15/20 11:00 11/15/20 11:30 11/15/20 12:00 Temperature Pulse Rate 106 H 104 H 97 H Respiratory Rate 20 Blood Pressure 115/65 119/71 118/75 Pulse Oximetry 94 97 99 11/15/20 12:30 11/15/20 13:00 11/15/20 13:30 Temperature Pulse Rate 94 H 94 H 93 H Respiratory Rate Blood Pressure 122/78 123/81 127/86 Pulse Oximetry 99 99 100 11/15/20 14:00 Temperature Pulse Rate 88 Respiratory Rate Blood Pressure 124/81 Pulse Oximetry 99 MDM - Male Genitourinary Lab Data Attestation: I reviewed the patient's lab results. Result diagrams: 11/15/20 11:27 11/15/20 11:27 Labs: Lab Results 11/15/20 11/15/20 11/15/20 Range/Units 10:32 10:32 11:27 WBC 10.5 (4.5-11.0) X10^3/uL RBC 4.89 (4.5-5.9) X10^6/uL Hgb 14.3 (13.5-17.5) g/dL Hct 42.9 (41-53) % MCV 87.8 (80-100) fL MCH 29.2 (26-34) PG MCHC 33.2 (30-36) % RDW 13.1 (11.6-14.8) % Plt Count 391 (150-400) X10^3/uL Neut % (Auto) 79.9 H (50-75) % Lymph % (Auto) 13.0 L (25-40) % Burt % (Auto) 6.2 (3-14) % Eos % (Auto) 0.6 L (2-4) % Baso % (Auto) 0.3 (0-2) % Neut # (Auto) 8400 H (2502-8907) /uL Lymph # (Auto) 1400 (5478-9928) /uL Burt # (Auto) 700 (0-900) /uL Eos # (Auto) 100 (0-450) /uL Baso # (Auto) 0 (0-100) /uL Sodium (137-145) mmol/L Potassium (3.4-5.1) mmol/L Chloride (98-107) mmol/L Carbon Dioxide (22-32) mmol/L BUN (9-20) mg/dL Creatinine (0.66-1.25) mg/dL Estimated GFR (>60) mL/min BUN/Creatinine Ratio (6-22) Glucose (70-100) mg/dL Lactate (0.7-2.1) mmol/L Calcium (8.4-10.2) mg/dL Total Bilirubin (0.2-1.3) mg/dL AST (17-59) IU/L ALT (<50) IU/L Alkaline Phosphatase (38-126) U/L Total Protein (6.3-8.2) g/dL Albumin (3.5-5.0) g/dL Globulin (1.7-4.1) g/dL Albumin/Globulin Ratio (1.0-2.8) Procalcitonin (<0.5) ng/mL Urine Color Yellow Urine Appearance Cloudy Urine pH 5.5 (4.5-8.0) Ur Specific [place] 1.025 (1.000-1.035) Urine Protein 2+ H (Negative) Urine Glucose (UA) 1+ H (Negative) g/dL Urine Ketones Trace H (NEGATIVE) Urine Occult Blood 3+ H (Negative) Urine Nitrate Positive (Negative) Urine Bilirubin Negative (NEGATIVE) Urine Urobilinogen 0.2 (0.2) E.U./dL Ur Leukocyte Esterase 2+ H (NEGATIVE) Urine RBC 5-10/hpf H (0-5/HPF) Urine WBC 10-30/hpf H (0-5/HPF) Urine Bacteria Many (>30) H (None) Ur Culture Indicated? Specimen cultured U Opiates 300ng/mL cut Negative (Negative) Ur Oxycodone Screen Negative (Negative) Urine Methadone Screen Negative (Negative) Ur Barbiturates Screen Negative (Negative) U Tricyclic Antidepress Negative (Negative) Ur Phencyclidine Scrn Negative (Negative) Ur Amphetamines Screen Positive H (Negative) U Methamphetamines Scrn Positive H (Negative) Ur MDMA Scrn (Ecstasy) Negative (Negative) U Benzodiazepines Scrn Negative (Negative) Urine Cocaine Screen Negative (Negative) U Marijuana (THC) Screen Negative (Negative) 11/15/20 11/15/20 11/15/20 Range/Units 11:27 11:27 11:27 WBC (4.5-11.0) X10^3/uL RBC (4.5-5.9) X10^6/uL Hgb (13.5-17.5) g/dL Hct (41-53) % MCV (80-100) fL MCH (26-34) PG MCHC (30-36) % RDW (11.6-14.8) % Plt Count (150-400) X10^3/uL Neut % (Auto) (50-75) % Lymph % (Auto) (25-40) % Burt % (Auto) (3-14) % Eos % (Auto) (2-4) % Baso % (Auto) (0-2) % Neut # (Auto) (0213-1726) /uL Lymph # (Auto) (3082-4677) /uL Burt # (Auto) (0-900) /uL Eos # (Auto) (0-450) /uL Baso # (Auto) (0-100) /uL Sodium 135 L (137-145) mmol/L Potassium 4.2 (3.4-5.1) mmol/L Chloride 102 (98-107) mmol/L Carbon Dioxide 28 (22-32) mmol/L BUN 28 H (9-20) mg/dL Creatinine 0.83 (0.66-1.25) mg/dL Estimated GFR > 60.0 (>60) mL/min BUN/Creatinine Ratio 33.7 H (6-22) Glucose 251 H (70-100) mg/dL Lactate 1.9 (0.7-2.1) mmol/L Calcium 9.2 (8.4-10.2) mg/dL Total Bilirubin 0.3 (0.2-1.3) mg/dL AST 31 (17-59) IU/L ALT 25 (<50) IU/L Alkaline Phosphatase 80 (38-126) U/L Total Protein 7.4 (6.3-8.2) g/dL Albumin 4.2 (3.5-5.0) g/dL Globulin 3.2 (1.7-4.1) g/dL Albumin/Globulin Ratio 1.3 (1.0-2.8) Procalcitonin < 0.05 (<0.5) ng/mL Urine Color Urine Appearance Urine pH (4.5-8.0) Ur Specific [place] (1.000-1.035) Urine Protein (Negative) Urine Glucose (UA) (Negative) g/dL Urine Ketones (NEGATIVE) Urine Occult Blood (Negative) Urine Nitrate (Negative) Urine Bilirubin (NEGATIVE) Urine Urobilinogen (0.2) E.U./dL Ur Leukocyte Esterase (NEGATIVE) Urine RBC (0-5/HPF) Urine WBC (0-5/HPF) Urine Bacteria (None) Ur Culture Indicated? U Opiates 300ng/mL cut (Negative) Ur Oxycodone Screen (Negative) Urine Methadone Screen (Negative) Ur Barbiturates Screen (Negative) U Tricyclic Antidepress (Negative) Ur Phencyclidine Scrn (Negative) Ur Amphetamines Screen (Negative) U Methamphetamines Scrn (Negative) Ur MDMA Scrn (Ecstasy) (Negative) U Benzodiazepines Scrn (Negative) Urine Cocaine Screen (Negative) U Marijuana (THC) Screen (Negative) [facility] Narrative Medical decision making narrative: Patient is given IM Ativan to help with placement of Deng. He is resistant but Deng catheter is placed. Initially urine is clear however as urine drainage it becomes very cloudy. UA does show positive nitrates indicative of infection. He is sleeping now from Ativan and remains tachycardic at 1:06 a.m.. Possible concern from sepsis. However UDS is also positive for methamphetamine he states that he used just a day ago. This may or may not be contributing to his urinary retention. At this time blood work is added He overall does not appear septic, no leukocytosis and is afebrile. At this time he may treated as an outpatient. I WOULD NOT REMOVE DENG CATHETER. NEEDS UROLOGY EVALUATION Discharge Plan Departure Patient Disposition: Home Clinical Impression: Acute urinary retention, Acute UTI Instructions: How to Care for Your Deng Catheter -- Male, DI for Urinary Tract Infection (UTI), DI for Urinary Retention in Men Activity Restrictions/Additional Instructions: *You have been diagnosed with urinary retention with infection *What to do: YOU MUST KEEP DENG CATHETER IN UNTIL YOU ARE SEEN BY UROLOGY. You currently have an infection, which is easily treated with antibiotic. YOU ALSO MUST STOP USING METHAMPHETAMINES *Continue to take medications as directed Keflex 500 mg 3 times a day for 7 days *Follow up with your primary care provider in 2-3 days Please call and follow-up with urology *Return to ER if you should have problems Deng catheter, fever, abdominal pain or any new, worsening or concerning symptoms Prescriptions: New cephalexin [Keflex] 500 mg capsule 500 mg PO TID Qty: 21 RF: 0 No Action Lantus Solostar U-100 Insulin 100 unit/mL (3 mL) Insulin Pen 25 unit SUBCUT BEDTIME Qty: 3 RF: 0 metformin 500 mg tablet 500 mg PO BID Qty: 60 RF: 0 (DME) pen needle, diabetic [BD Ultra-Fine Marcela Pen Needle] 32 gauge x 5/32 needle See Dose Instructions .ROUTE .MEDSUPPLY Qty: 30 RF: 0 (DME) lancets [BD Ultra Fine Lancets] 33 gauge misc See Dose Instructions .ROUTE .MEDSUPPLY Qty: 100 RF: 0 tamsulosin [Flomax] 0.4 mg capsule 0.4 mg PO BEDTIME Qty: 30 RF: 0 Referrals: [facility] [Outside] Bienvenido Burt MD [Physician] -
--- NOTE | 2020-11-15 09:51 | PC.NURSE ---
Pt crying and yelling 'NO' and 'knock me out' when told he needed catheter replaced. Dr. Smiley came in to verbally reassure and pt initially agreed to attempt cath w/ lidocaine however when attempted pt screaming and became aggressive. Attempt stopped. Pt verbally assured. Dr. Smiley notified.
[2020-11-15] MEDS: LORazepam 2 MG/ML INJ 1 MG IM (09:58)
[2020-11-15] MEDS: LIDOCAINE 2% (UROJET) 5 ML GEL (10:34)
--- NOTE | 2020-11-15 10:35 | PC.NURSE ---
pt more calm, allowed catheter. Immediate relief of lower abd pain w/ > 800 cc out at this time. UA/Tox sent.
[2020-11-15 10:47] LABS: Bilirubin Urine UA NEGATIVE (NEGATIVE); Color Urine UA YELLOW; Glucose Urine UA 1+ g/dL (Negative); Ketones Urine UA TRACE (NEGATIVE); Leukocyte Esterase Urine UA 2+ (NEGATIVE); Nitrite Urine UA POSITIVE (Negative); Occult Blood Urine UA 3+ (Negative); Protein Urine UA 2+ (Negative); Specific Gravity Urine UA 1.025 (1.000-1.035); Urobilinogen Urine UA 0.2 E.U./dL (0.2); pH Urine UA 5.5 (4.5-8.0)
[2020-11-15 10:48] LABS: Appearance Urine UA CLOUDY
[2020-11-15 10:52] LABS: Bacteria Urine Many (>30); RBC Urine 5-10/HPF (0-5/HPF); WBC Urine 10-30/HPF (0-5/HPF)
[2020-11-15 10:53] LABS: Culture Indicated Urine Specimen Cultured
[2020-11-15 11:02] LABS: UR Morphine/Opiate cutoff 300 Negative (Negative); Ur Creatinine Normal (Normal); Ur Specific Gravity Normal (Normal); Urine Amphetamines Positive (Negative); Urine Barbiturates Negative (Negative); Urine Benzodiazepines Negative (Negative); Urine Cocaine Negative (Negative); Urine MDMA Negative (Negative); Urine Methadone Negative (Negative); Urine Methamphetamines Positive (Negative); Urine Phencyclidine Negative (Negative); Urine Tetrahydrocannabinol Negative (Negative); Urine Tricyclic Antidepressant Negative (Negative); Urine pH Normal (Normal)
[2020-11-15 11:03] LABS: Urine Oxycodone Negative (Negative)
[2020-11-15] MEDS: CEFTRIAXONE 1 GM/50 ML FROZ.PIGGY IV (11:31)
[2020-11-15] MEDS: SODIUM CHLORIDE 0.9% 1,000 ML 1000 ML IV (11:31)
[2020-11-15 11:37] LABS: Add Manual Diff / Slide Review NO; Basophils Absolute Auto 0 /uL (0-100); Basophils Percent Auto 0.3 % (0-2); Eosinophils Absolute Auto 100 /uL (0-450); Eosinophils Percent Auto 0.6 % (2-4); Hematocrit 42.9 % (41-53); Hemoglobin 14.3 g/dL (13.5-17.5); Lymphocytes Absolute Auto 1400 /uL (1100-4500); Mean Corpuscular HGB Conc 33.2 % (30-36); Mean Corpuscular Hemoglobin 29.2 PG (26-34); Mean Corpuscular Volume 87.8 fL (80-100); Monocytes Absolute Auto 700 /uL (0-900); Monocytes Percent Auto 6.2 % (3-14); Neutrophils Absolute Auto 8400 /uL (1500-7000); Neutrophils Percent Auto 79.9 % (50-75); Platelet Count 391 X10^3/uL (150-400); Red Blood Cell Count 4.89 X10^6/uL (4.5-5.9); Red Cell Distribution Width 13.1 % (11.6-14.8); White Blood Cell Count 10.5 X10^3/uL (4.5-11.0)
[2020-11-15 11:49] LABS: Lactate (Lactic Acid) 1.9 mmol/L (0.7-2.1)
[2020-11-15 11:58] LABS: Alanine Aminotransferase 25 IU/L (<50); Albumin 4.2 g/dL (3.5-5.0); Albumin Globulin Ratio 1.3 (1.0-2.8); Alkaline Phosphatase 80 U/L (38-126); Aspartate Aminotransferase 31 IU/L (17-59); BUN Creatinine Ratio 33.7 (6-22); Bilirubin Total 0.3 mg/dL (0.2-1.3); Blood Urea Nitrogen 28 mg/dL (9-20); Calcium 9.2 mg/dL (8.4-10.2); Carbon Dioxide 28 mmol/L (22-32); Chloride 102 mmol/L (98-107); Estimated Glomerular Filt Rate > 60.0 mL/min (>60); Globulin 3.2 g/dL (1.7-4.1); Glucose 251 mg/dL (70-100); HEMOLYSIS < 15 (0-50); Potassium 4.2 mmol/L (3.4-5.1); Sodium 135 mmol/L (137-145); Total Protein 7.4 g/dL (6.3-8.2)
[2020-11-15 12:14] LABS: Procalcitonin < 0.05 ng/mL (<0.5)
== END 2020-11-15 14:52 | disposition home or self-care (01) ==
PROVIDERS: Emergency Provider Emergency Medicine
DX: R33.8 Other retention of urine (principal); N39.0 Urinary tract infection, site not specified; R00.0 Tachycardia, unspecified; E11.9 Type 2 diabetes mellitus without complications; N40.0 Benign prostatic hyperplasia without lower urinary tract symptoms
CPT/HCPCS: 36415; 51701; 51798; 80053; 80305; 81001; 83605; 84145; 85025; 87040; 87077; 87086; 87186; 96365; 96372; 99283; 99284; J2060

== ENCOUNTER → 2020-11-24 14:50 | Outpatient (CLI) | payer OTHER, MEDICAID, SELFPAY ==
[2020-10-28 21:23] VITALS: BMI 24.4
[2020-11-24 16:13] LABS: BUN Creatinine Ratio 30.1 (6-22); Blood Urea Nitrogen 25 mg/dL (9-20); Calcium 9.3 mg/dL (8.4-10.2); Carbon Dioxide 29 mmol/L (22-32); Chloride 102 mmol/L (98-107); Estimated Glomerular Filt Rate > 60.0 mL/min (>60); Glucose 293 mg/dL (70-100); Sodium 135 mmol/L (137-145)
[2020-11-24 16:37] LABS: HEMOLYSIS 55 (0-50); Potassium 4.7 mmol/L (3.4-5.1)
== END ==
PROVIDERS: PCP Internal Medicine; Referring Provider Internal Medicine; Visit Provider Internal Medicine
DX: B18.2 Chronic viral hepatitis C (principal); E11.65 Type 2 diabetes mellitus with hyperglycemia
CPT/HCPCS: 36415; 80048

== ENCOUNTER 2021-01-01 02:48 | Emergency (ER) | payer OTHER, MEDICAID, SELFPAY ==
[2020-12-03 16:59] VITALS: BMI 24.4
--- NOTE | 2021-01-01 02:59 | ED_ITS ---
HPI - Male Genitourinary General Chief complaint: Urogenital-Male Stated complaint: Catheter removed today, not able to urinate Time Seen by Provider: 01/01/21 02:55 Source: patient Mode of arrival: Ambulatory Limitations: no limitations History of Present Illness HPI Narrative: The patient presents with urinary retention. He initially required a Martinez about 2 months ago. The Martinez was briefly removed. The Martinez had replaced again shortly thereafter. The catheter came out again 10:00 a.m. this morning. Since having the catheter out he has only trickle small-bowel urine. He presents now with severe lower abdominal discomfort, no genital your pain. He denies fever or chills. He has no back pain. He has no nausea, vomiting or diarrhea. He is taking medications for his prostate, he is uncertain the name of the medications. Related Data Previous Rx's Medication Instructions Recorded alfuzosin 10 mg tablet,extended 10 mg PO DAILY #90 tab 11/25/20 release 24 hr metformin 500 mg tablet 500 mg PO BID #60 tab 12/22/20 Allergies Allergy/AdvReac Type Severity Reaction Status Date / Time codeine [CODEINE] AdvReac Intermediate GI Upset Verified 12/22/20 15:06 Review of Systems Constitutional Constitutional: Denies chills and Denies fever(s) Gastrointestinal Gastrointestinal: Reports abdominal pain, Denies nausea and Denies vomiting Genitourinary Genitourinary: Reports as per HPI, Denies hematuria, Reports difficulty urinating and Denies dysuria Genitourinary: Reports as per HPI, Denies hematuria and Denies dysuria Musculoskeletal Musculoskeletal: Denies back pain Integumentary/Breasts Skin/Breast: Denies lesions and Denies rash Patient History Medical History Acute urinary retention Asthma Bipolar 1 disorder Bladder atony Bladder outlet obstruction BPH (benign prostatic hyperplasia) Chronic hepatitis C Constipation Depression Diabetes type 2, uncontrolled Heroin addiction History of UTI Methamphetamine use Urinary retention Surgical History History of circumcision History of liver biopsy History of mandibular surgery (~1983) Family History Other Adopted person Social History marital status: unmarried,single number of children: 2 household members: none occupational status: disabled Smoking Status: Current every day smoker Tobacco: How many years used: 40 alcohol intake: former caffeine: No Smoking Status: Current every day smoker alcohol intake frequency: 0-2 drinks per day Substance Use Type: does not use Exam Initial Vital Signs Initial Vital Signs: Vital Signs Temperature 97.8 F 01/01/21 03:10 Pulse Rate 96 H 01/01/21 03:10 Respiratory Rate 20 01/01/21 03:10 Blood Pressure 154/90 H 01/01/21 03:10 Pulse Oximetry 95 01/01/21 03:10 Const General: cooperative and well developed Nutritional Appearance: well nourished Other: Obviously uncomfortable. Resp Auscultation: clear to auscultation bilaterally Cardio Rate: regular rate Rhythm: regular rhythm Heart Sounds: no click, no gallops, no murmurs and no rubs Pulses: normal peripheral pulses GI Other: Suprapubic distention with tenderness. No other masses. Normal bowel sounds. Other: Normal male genitalia. Back/Spine/Pelvis Back: No CVA tenderness Extrem Other: He is wearing a brace on his left wrist. Fingers are flexed. His intelligence consultant is normal, he has been able to extend his fingers for about 2 months. Sensation to the fingers is normal. Course Course Course Narrative: A Martinez was placed by the ER nurse. Greater than 1000 mL of fluid was drained. His abdominal discomfort has been alleviated. He is advised to follow-up with his urologist as soon as possible. Also, although the issues to his left hand have been ongoing for 2 months and is under treatment by his PCM, he asked me my thoughts about his left hand. 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 I did advise him to talk to his doctor about seeing a orthopedic surgeon or neurologist. Orders Ordered: ED Orders 01/01/21 03:20 Urine Culture Stat Urine Microscopic Stat Discontinued Medications Lidocaine HCl (Lidocaine 2% (Urojet) 5 Ml Gel) 5 ml TOP NOW ONE Stop: 01/01/21 03:02 Last Admin: 01/01/21 03:32 Dose: 5 ml Documented by: KARLEY Vital Signs Vital signs: Vital Signs - 8 hr 01/01/21 03:10 01/01/21 04:36 Temperature 97.8 F Pulse Rate 96 H 92 H Respiratory Rate 20 18 Blood Pressure 154/90 H 150/81 H Pulse Oximetry 95 97 MDM - Male Genitourinary Lab Data Labs: Lab Results 01/01/21 Range/Units 03:20 Urine RBC 5-10/hpf H (0-5/HPF) Urine WBC 30-100/hpf H (0-5/HPF) Urine Bacteria Many (>30) H (None) Ur Culture Indicated? Specimen cultured Urine Dip Bedside Urine Glucose 1000 mg/dl Bedside Urine Bilirubin - Negative Bedside Urine Ketone - Negative Urine Specific [place] 1.025 Bedside Urine Occult Blood +++ Bedside Urine pH 6.0 Bedside Urine Protein - Negative Bedside Urine Urobilinogen - Negative Bedside Urine Nitrite - Negative Bedside Urine Leukocytes - Negative Esterase Discharge Plan Departure Patient Disposition: Home Clinical Impression: Urinary retention BPH (benign prostatic hyperplasia) Qualifiers: Lower urinary tract symptom presence: symptoms present Lower urinary tract symptom detail: urinary retention Qualified Code(s): N40.1 - Benign prostatic hyperplasia with lower urinary tract symptoms Instructions: DI for Urinary Retention in Men Activity Restrictions/Additional Instructions: Be sure you are drinking plenty of water at all times. Arrange follow-up with your urologist. Continue current medications. Return here as necessary. Prescriptions: No Action alfuzosin 10 mg tablet extended release 24 hr 10 mg PO DAILY Qty: 90 RF: 3 metformin 500 mg tablet 500 mg PO BID Qty: 60 RF: 0 Referrals: Tu Hamilton MD [Primary Care Provider] -
[2021-01-01 03:10] VITALS: BP 154/90; PULSE 96; RESP 20; TEMP 36.6; O2SAT 95
[2021-01-01] MEDS: LIDOCAINE 2% (UROJET) 5 ML GEL TOP (03:32)
[2021-01-01 03:54] LABS: RBC Urine 5-10/HPF (0-5/HPF); WBC Urine 30-100/HPF (0-5/HPF)
[2021-01-01 03:55] LABS: Bacteria Urine Many (>30); Culture Indicated Urine Specimen Cultured
[2021-01-01 04:36] VITALS: BP 150/81; PULSE 92; RESP 18; O2SAT 97
== END 2021-01-01 04:36 | disposition home or self-care (01) ==
PROVIDERS: Emergency Provider Emergency Medicine; PCP Internal Medicine; Referring Provider Specialist
DX: R33.9 Retention of urine, unspecified (principal); N40.1 Benign prostatic hyperplasia with lower urinary tract symptoms
CPT/HCPCS: 51705; 81003; 81015; 87077; 87086; 87186; 99283

== ENCOUNTER 2022-03-27 17:18 | Emergency (ER) | payer OTHER, MEDICAID, SELFPAY ==
[2020-12-03 16:59] VITALS: BMI 24.4
[2022-03-27 17:21] VITALS: BP 146/92; PULSE 98; RESP 15; TEMP 36.8; O2SAT 98; BMI 19.6
[2022-03-27 17:30] VITALS: BP 115/80; PULSE 93; RESP 22; O2SAT 98
--- NOTE | 2022-03-27 17:47 | PC.NURSE ---
Pt reports he was seen at [facility] 4 days ago after 11 butane cans opened up and he became SOB with a cough. Pt remained at [facility] for 24 hours then left AMA. A PICC line was placed during his [facility] ER visit in his right upper arm and still remains in place. Pt denies using PICC line after leaving [facility]. Pt currently reports some fatigue, SOB, and a dry, intermittent cough, but reports much better than it was. Pt is able to talk in full sentences. Pt reports a hx of diabetes and childhood asthma. Pt also reports I have not messed with the PICC line at all.
[2022-03-27 18:00] VITALS: BP 141/80; PULSE 88; RESP 20; O2SAT 94
[2022-03-27 18:30] VITALS: BP 141/86; PULSE 82; RESP 22; O2SAT 99
--- NOTE | 2022-03-27 18:48 | ED.RECABL ---
HPI - Recheck/Abnormal Lab/Rx General Chief Complaint: Recheck/Abnormal Lab/Rx Stated Complaint: Fluid sack on heart, picc line to remove Time Seen by Provider: 03/27/22 18:06 Source: patient Mode of arrival: Ambulatory Related Data Previous Rx's Medication Instructions Recorded alfuzosin 10 mg tablet,extended 10 mg PO DAILY #90 tabs 11/25/20 release 24 hr metformin 500 mg tablet 500 mg PO BID #60 tabs 12/22/20 Allergies Allergy/AdvReac Type Severity Reaction Status Date / Time codeine [CODEINE] AdvReac Intermediate GI Upset Verified 03/27/22 17:29 Patient History Medical History Acute urinary retention Asthma Bipolar 1 disorder Bladder atony Bladder outlet obstruction BPH (benign prostatic hyperplasia) Chronic hepatitis C Constipation Depression Diabetes type 2, uncontrolled Heroin addiction History of UTI Methamphetamine use Urinary retention Surgical History History of circumcision History of liver biopsy History of mandibular surgery (~1983) Family History Other Adopted person Social History marital status: unmarried,single number of children: 2 household members: none occupational status: disabled Smoking Status: Current every day smoker Tobacco: How many years used: 40 alcohol intake: former caffeine: No Smoking Status: Current every day smoker alcohol intake frequency: 0-2 drinks per day Substance Use Type: does not use Exam Initial Vital Signs Initial Vital Signs: Vital Signs Temperature 98.3 F 03/27/22 17:21 Pulse Rate 98 H 03/27/22 17:21 Respiratory Rate 15 03/27/22 17:21 Blood Pressure 146/92 H 03/27/22 17:21 Pulse Oximetry 98 03/27/22 17:21 Oxygen Delivery Method 03/27/22 17:21 Course Vital Signs Vital signs: Vital Signs - 8 hr 03/27/22 17:21 03/27/22 17:30 03/27/22 18:00 Temperature 98.3 F Pulse Rate 98 H 93 H 88 Respiratory Rate 15 22 20 Blood Pressure 146/92 H 115/80 141/80 H Pulse Oximetry 98 98 94 Oxygen Delivery Method Room Air Room Air Room Air MDM - Recheck/Abnormal Lab/Rx Lab Data Labs: Urine Dip Bedside Urine Glucose 1000 mg/dl Bedside Urine Bilirubin - Negative Bedside Urine Ketone - Negative Urine Specific [place] 1.015 Bedside Urine Occult Blood - Negative Bedside Urine pH 6.0 Bedside Urine Protein - Negative Bedside Urine Urobilinogen - Negative Bedside Urine Nitrite - Negative Bedside Urine Leukocytes - Negative Esterase Discharge Plan Departure Prescriptions: No Action alfuzosin 10 mg tablet extended release 24 hr 10 mg PO DAILY Qty: 90 3RF Rx Instructions: administer after the same meal each day metformin 500 mg tablet 500 mg PO BID Qty: 60 0RF Referrals: Tu Hamilton MD [Primary Care Provider] -
--- NOTE | 2022-03-27 18:52 | ED.GENADULT ---
HPI - General Adult General Chief complaint: Recheck/Abnormal Lab/Rx Stated complaint: Fluid sack on heart, picc line to remove Time Seen by Provider: 03/27/22 18:06 Source: patient Mode of arrival: Ambulatory History of Present Illness HPI narrative: 56-year-old gentleman with a history of recently diagnosed pericardial and pleural effusions, type 2 diabetes, bipolar disorder and acute urinary retention with a history of recurrent urinary tract infections currently on no medications, methamphetamine use without opioid use and no reports of IV use was initially seen at [facility] on March 22 and was admitted to the hospitalist service. An echocardiogram was done on the and later that afternoon the patient chose to leave against medical advice because ?they were not doing anything?. In the intervening few days he actually feels that he is doing significantly better. He is not having additional pain, no longer having orthopnea the exertional dyspnea is minimal he is having no lower extremity edema. He states he has a follow-up appointment with his primary care doctor sometime next week. He comes into [facility] today asking for help in removing his PICC line. He describes no fevers, cough, abdominal pain, vomiting, diarrhea, headache or other acute neurologic findings. Related Data Previous Rx's Medication Instructions Recorded alfuzosin 10 mg tablet,extended 10 mg PO DAILY #90 tabs 11/25/20 release 24 hr metformin 500 mg tablet 500 mg PO BID #60 tabs 12/22/20 Allergies Allergy/AdvReac Type Severity Reaction Status Date / Time codeine [CODEINE] AdvReac Intermediate GI Upset Verified 03/27/22 17:29 Review of Systems Review of Systems Narrative: Remainder of complete review of systems is otherwise unremarkable except for that included in the HPI. Patient History Medical History Acute urinary retention Asthma Bipolar 1 disorder Bladder atony Bladder outlet obstruction BPH (benign prostatic hyperplasia) Chronic hepatitis C Constipation Depression Diabetes type 2, uncontrolled Heroin addiction History of UTI Methamphetamine use Urinary retention Surgical History History of circumcision History of liver biopsy History of mandibular surgery (~1983) Family History Other Adopted person Social History marital status: unmarried,single number of children: 2 household members: none occupational status: disabled Smoking Status: Current every day smoker Tobacco: How many years used: 40 alcohol intake: former caffeine: No Smoking Status: Current every day smoker alcohol intake frequency: 0-2 drinks per day Substance Use Type: does not use Exam Initial Vital Signs Initial Vital Signs: Vital Signs Temperature 98.3 F 03/27/22 17:21 Pulse Rate 98 H 03/27/22 17:21 Respiratory Rate 15 03/27/22 17:21 Blood Pressure 146/92 H 03/27/22 17:21 Pulse Oximetry 98 03/27/22 17:21 Oxygen Delivery Method 03/27/22 17:21 General: Healthy appearing, in no acute distress. Able to give a complete and coherent history. Well-nourished well-developed. I actually did see this gentleman a week ago and he is dramatically better than presentation on March 22. HEENT: Moist mucous membranes, normal sclera with reactive pupils, Neck: No JVD, supple Respiratory: Lungs are clear to auscultation, no wheezing no rales no rhonchi. Full and symmetrical air movement Cardiac: Regular rate and rhythm no murmurs no bruits Abdomen: Soft, nontender, good bowel tones, no flank pain Skin: Warm and dry, no rashes Neurologic: Grossly neurologically intact with no obvious asymmetries or abnormalities Extremities: No trauma, well perfused Psych: Cooperative, appropriate insight and affect Course Orders Ordered: ED Orders 03/27/22 18:59 CXR [XR chest 1V] Stat 03/27/22 19:00 BNP [NT-proBNP (BNP-Adult 18+)] Stat CBC Auto Diff [Complete Blood Count AUTO DIFF] Stat CMP [Comprehensive Metabolic Panel] Stat Trop I [Troponin I] Stat Discontinued Medications Furosemide (Furosemide 100 Mg/10 Ml Vial) 60 mg IV NOW ONE Stop: 03/27/22 19:01 Vital Signs Vital signs: Vital Signs - 8 hr 03/27/22 17:21 03/27/22 17:30 03/27/22 18:00 Temperature 98.3 F Pulse Rate 98 H 93 H 88 Respiratory Rate 15 22 20 Blood Pressure 146/92 H 115/80 141/80 H Pulse Oximetry 98 98 94 Oxygen Delivery Method Room Air Room Air Room Air Medical Decision Making Medical Records Medical records narrative: Medical records are obtained from [facility] with his recent hospitalization Echocardiogram done on March 22, 2020: Sinus rhythm, left ventricle is normal in size Ejection fraction 60-65% Indeterminate diastolic function Septal bounce noted, suggestive of prior cardiovascular surgery versus interventricular conduction delay versus constrictive pericarditis Both atria are normal in size IVC is of normal diameter and collapses less than 50% with a sniff this suggests a right atrial pressure of 8 mm Pericardium appears significantly thickened with concern for possible pericardial constriction No echocardiographic or Doppler indications for cardiac tamponade, there is a small to moderate pericardial effusion appreciated. No pleural effusion. Lab Data Labs: Urine Dip Bedside Urine Glucose 1000 mg/dl Bedside Urine Bilirubin - Negative Bedside Urine Ketone - Negative Urine Specific Vaughan 1.015 Bedside Urine Occult Blood - Negative Bedside Urine pH 6.0 Bedside Urine Protein - Negative Bedside Urine Urobilinogen - Negative Bedside Urine Nitrite - Negative Bedside Urine Leukocytes - Negative Esterase Point of care testing: Urine Dip Bedside Urine Glucose 1000 mg/dl Bedside Urine Bilirubin - Negative Bedside Urine Ketone - Negative Urine Specific Vaughan 1.015 Bedside Urine Occult Blood - Negative Bedside Urine pH 6.0 Bedside Urine Protein - Negative Bedside Urine Urobilinogen - Negative Bedside Urine Nitrite - Negative Bedside Urine Leukocytes - Negative Esterase MDM Narrative Medical decision making narrative: 56-year-old gentleman with a history of medical noncompliance, takes no medications for his diagnosed diabetes and continues to use methamphetamine. Presented on the with progressive exertional dyspnea diagnosed with pericarditis and pericardial effusion. Left the hospital after 24 hours and returns to [facility] asking that his PICC line be removed. Explain to him that I would like to add additional blood work and consider adding a diuretic given the prior pleural effusions and suggestion of congestive heart failure. Patient agreed to this. Blood was drawn, PICC line was removed patient's request. Patient then chose to leave against medical advice from the emergency department as ?nothing was being done?. He was stable on room air and able to walk out without any difficulties. Discharge Plan Departure Patient Disposition: Left Against Medical Advice Clinical Impression: Pericardial effusion without cardiac tamponade, Methamphetamine dependence, continuous, Exertional dyspnea Prescriptions: No Action alfuzosin 10 mg tablet extended release 24 hr 10 mg PO DAILY Qty: 90 3RF Rx Instructions: administer after the same meal each day metformin 500 mg tablet 500 mg PO BID Qty: 60 0RF Referrals: Tu Hamilton MD [Primary Care Provider] - Stand Alone Forms: Against Medical Advice
--- NOTE | 2022-03-27 18:59 | DI.RAD.S_ITS ---
PROCEDURE: XR CHEST 1V INDICATIONS: dypsnea TECHNIQUE: One view of the chest was acquired. COMPARISON: [facility], CR, XR CHEST 1 VIEW, 03/22/2022, 21:39. [facility], CR, XR CHEST 1V, 10/28/2020, 17:06. FINDINGS: Surgical changes and devices: None. Lungs and pleura: Previously seen left pleural effusion and left basilar opacities have resolved. No acute consolidation. No pneumothorax. Mediastinum: Mediastinal contours appear normal. Heart size is normal. Bones and chest wall: No suspicious bony lesions. Overlying soft tissues appear unremarkable. IMPRESSION: No acute cardiopulmonary abnormality. Dictated by: Festus Webb M.D. on 03/27/2022 at 19:40 Approved by: Festus Webb M.D. on 03/27/2022 at 19:41
[2022-03-27 19:00] VITALS: PULSE 79; RESP 22; O2SAT 97
[2022-03-27 19:30] VITALS: PULSE 85; RESP 21; O2SAT 98
--- NOTE | 2022-03-27 19:30 | PC.NURSE ---
1900: Pt midline from [facility] removed by [facility]. Pt declining treatment and wants to go.
--- NOTE | 2022-03-27 20:14 | PC.NURSE ---
1845: 1 IV attempt with patient permission. Pt refusing any more treatment or IV attempts. Notified PA Crew who came and removed right midline from [facility].
== END 2022-03-27 19:36 | disposition left against medical advice (07) ==
PROVIDERS: Emergency Provider Emergency Medicine; PCP Internal Medicine
DX: I31.3 Pericardial effusion (noninflammatory) (principal); F15.20 Other stimulant dependence, uncomplicated; R06.00 Dyspnea, unspecified
CPT/HCPCS: 71045; 81003; 99283

== ENCOUNTER 2023-03-27 21:47 | Observation (INO) | payer OTHER, MEDICAID, SELFPAY ==
[2020-12-03 16:59] VITALS: BMI 24.4
[2023-03-27 21:56] VITALS: BP 116/68; PULSE 97; RESP 16; TEMP 36.4; O2SAT 94; BMI 20.6
[2023-03-27] MEDS: ONDANSETRON 4 MG/2 ML INJ IV (22:11)
[2023-03-27 22:12] LABS: Add Manual Diff / Slide Review NO; Basophils Absolute Auto 0 /uL (0-100); Basophils Percent Auto 0.3 % (0-2); Eosinophils Absolute Auto 0 /uL (0-450); Eosinophils Percent Auto 0.3 % (2-4); Hematocrit 36.3 % (41-53); Lymphocytes Absolute Auto 1800 /uL (1100-4500); Lymphocytes Percent Auto 18.2 % (25-40); Mean Corpuscular Hemoglobin 28.9 PG (26-34); Mean Corpuscular Volume 87.7 fL (80-100); Monocytes Absolute Auto 700 /uL (0-900); Monocytes Percent Auto 6.7 % (3-14); Neutrophils Absolute Auto 7300 /uL (1500-7000); Neutrophils Percent Auto 74.5 % (50-75); Platelet Count 366 X10^3/uL (150-400); Red Blood Cell Count 4.14 X10^6/uL (4.5-5.9); Red Cell Distribution Width 12.7 % (11.6-14.8); White Blood Cell Count 9.8 X10^3/uL (4.5-11.0)
[2023-03-27 22:22] LABS: Alanine Aminotransferase 22 IU/L (<50); Albumin 3.9 g/dL (3.5-5.0); Alkaline Phosphatase 177 U/L (38-126); Aspartate Aminotransferase 19 IU/L (17-59); BUN Creatinine Ratio 24.2 (6-22); Bilirubin Total 0.4 mg/dL (0.2-1.3); Blood Urea Nitrogen 44 mg/dL (9-20); Calcium 8.5 mg/dL (8.4-10.2); Carbon Dioxide 29 mmol/L (22-32); Chloride 79 mmol/L (98-107); Estimated Glomerular Filt Rate 43 mL/min (>60); Globulin 4.1 g/dL (1.7-4.1); HEMOLYSIS 18 (0-50); Lipase 77 U/L (23-300); Potassium 5.1 mmol/L (3.4-5.1); Sodium 121 mmol/L (137-145)
[2023-03-27 22:23] LABS: Appearance Urine UA CLEAR; Bilirubin Urine UA NEGATIVE (NEGATIVE); Color Urine UA YELLOW; Glucose Urine UA 3+ g/dL (Negative); Ketones Urine UA NEGATIVE (NEGATIVE); Leukocyte Esterase Urine UA 2+ (NEGATIVE); Nitrite Urine UA NEGATIVE (Negative); Occult Blood Urine UA 1+ (Negative); Protein Urine UA TRACE (Negative); Specific Gravity Urine UA <=1.005 (1.000-1.035); Urobilinogen Urine UA 0.2 E.U./dL (0.2)
[2023-03-27 22:30] LABS: Bacteria Urine Few (2-10); RBC Urine 0-1/HPF (0-5/HPF); Squamous Epithelial Cell Urine 0-1 /HPF (0-5/HPF); WBC Urine >100/HPF (0-5/HPF)
[2023-03-27 22:31] LABS: Culture Indicated Urine Specimen Cultured
[2023-03-27 22:37] LABS: Glucose 1037 mg/dL (70-100)
[2023-03-27] MEDS: SODIUM CHLORIDE 0.9% 1,000 ML 1000 ML IV (22:45)
[2023-03-27 22:56] VITALS: PULSE 92; O2SAT 95
[2023-03-27 23:00] VITALS: BP 145/82; PULSE 91; O2SAT 96
[2023-03-27 23:30] VITALS: BP 156/65; PULSE 93; O2SAT 98
[2023-03-28] VITALS (26 sets, daily range): BP systolic 106–146; BP diastolic 61–87; PULSE 79–101; RESP 12–17; TEMP 36.2–37.7; O2SAT 92–99; BMI 20.5
--- NOTE | 2023-03-28 00:01 | ED.WEAKNESS ---
HPI - Weakness General Chief complaint: Abdominal Pain Stated complaint: ABD Pain Time Seen by Provider: 03/27/23 23:54 Source: patient and EMS Mode of arrival: EMS History of Present Illness HPI Narrative: Patient here for general malaise and weakness. Patient has history of insulin dependent diabetes. Has been out of his medications for 1 year. Has not seen a provider in over a year. Patient has had polyuria and polydipsia. Patient does self cath due to enlarged prostate. No vomiting or diarrhea. No cough cold congestion fever or chills. Related Data Previous Rx's Medication Instructions Recorded alfuzosin 10 mg tablet,extended 10 mg PO DAILY #90 tabs 11/25/20 release 24 hr metformin 500 mg tablet 500 mg PO BID #60 tabs 12/22/20 Allergies Allergy/AdvReac Type Severity Reaction Status Date / Time codeine [CODEINE] AdvReac Intermediate GI Upset Verified 03/27/22 17:29 Review of Systems Review of Systems Narrative: GENERAL: negative chills, positive fatigue, malaise, negative fever, sweats. HEENT: negative sinus pain, ear pain, sore throat RESPIRATORY: negative dyspnea, cough CARDIOVASCULAR: negative chest pain, palpitations GASTROINTESTINAL: negative nausea, vomiting, abdominal pain : negative dysuria, frequency, hematuria, positive polyuria MUSCULOSKELETAL: negative muscle or bony pain SKIN: negative rash, skin lesions NEUROLOGIC: negative weakness, numbness ROS Unobtainable: All systems reviewed & are unremarkable except as noted in HPI and below Patient History Medical History Acute urinary retention Asthma Bipolar 1 disorder Bladder atony Bladder outlet obstruction BPH (benign prostatic hyperplasia) Chronic hepatitis C Constipation Depression Diabetes type 2, uncontrolled Heroin addiction History of UTI Methamphetamine use Urinary retention Surgical History History of circumcision History of liver biopsy History of mandibular surgery (~1983) Family History Other Adopted person Social History marital status: unmarried,single number of children: 2 household members: none occupational status: disabled Smoking Status: Current every day smoker Tobacco: How many years used: 40 alcohol intake: former caffeine: No Smoking Status: Current every day smoker alcohol intake frequency: 0-2 drinks per day Substance Use Type: methamphetamine Exam Narrative Exam Narrative: GENERAL: in no distress, not toxic not dyspneic HEAD: Normocephalic. EYES: Pupils equal round ENT: Mucous membranes moist. NECK: Trachea midline. CARDIOVASCULAR: Regular rate and rhythm without murmurs RESPIRATORY: Clear to auscultation. Breath sounds equal bilaterally. No wheezes, rales, or rhonchi. GASTROINTESTINAL: Abdomen soft, non-tender EXTREMITIES: No gross deformities. BACK: No flank tenderness. NEURO: AOx4. SKIN: Warm and dry PSYCH: Not anxious, is cooperative Initial Vital Signs Initial Vital Signs: Vital Signs Temperature 97.6 F 03/27/23 21:56 Pulse Rate 97 H 03/27/23 21:56 Respiratory Rate 16 03/27/23 21:56 Blood Pressure 116/68 03/27/23 21:56 Pulse Oximetry 94 03/27/23 21:56 Oxygen Delivery Method Room Air 03/27/23 21:56 Course Orders Ordered: ED Orders 03/27/23 22:04 Complete Blood Count AUTO DIFF Stat Comprehensive Metabolic Panel Stat Ketones (Beta-Hydroxybutyrate) Stat Lipase Stat EKG-12 Lead Stat 03/27/23 22:05 Urinalysis and Microscopic Stat Urine Culture Stat 03/27/23 22:42 VBG [Venous Blood Gas] Stat 03/27/23 23:58 Blood Culture Stat Acetaminophen (Acetaminophen 325 Mg Tablet) 650 mg PO Q4HR PRN PRN Reason: Fever/Mild Pain (1-3) Al Hydrox/Mg Hydrox/Simethicone (Mag Hydrox/Alum/Simeth 30 Ml Udc) 30 ml PO Q6HR PRN PRN Reason: Dyspepsia Calcium Carbonate (Calcium Carbonate 500 Mg Tab) 1,000 mg PO Q4HR PRN PRN Reason: Dyspepsia Dextrose (Dextrose 50 % In Water 25 Gm/50 Ml Syringe) 25 gm IV PRN PRN PRN Reason: Hypoglycemia Dextrose (Dextrose 50 % In Water 25 Gm/50 Ml Syringe) 25 gm IV PRN PRN PRN Reason: Hypoglycemia Enoxaparin Sodium (Enoxaparin 40 Mg/0.4 Ml Syringe) 40 mg SUBCUT DAILY DEE DEE Hydromorphone HCl (Hydromorphone 1 Mg Inj) 1 mg IV Q4H PRN PRN Reason: Pain, Moderate (4-10 INSULIN DRIP PREMIX (Myxredlin Drip Premix) 100 unit in 100 mls @ 9 mls/hr IV TITRATE [facility]; Protocol Last Admin: 03/28/23 00:46 Dose: 9 unit/hr, 9 mls/hr Documented By: JEANNIE Co-signed By: Sodium Chloride (Normal Saline 0.9%) 1,000 mls @ 100 mls/hr IV CONT DEE DEE Last Admin: 03/28/23 02:35 Dose: 100 mls/hr Documented By: GLORIA Ceftriaxone Sodium 1,000 mg/ (Sodium Chloride) 100 mls @ 200 mls/hr IV Q24H DEE DEE Insulin Glargine (Insulin Glargine 100 Unit/Ml 3ml Pen) 20 unit SUBCUT 2100 DEE DEE Insulin Human Lispro (Insulin Lispro 100 Unit/Ml 3ml Vial) 0 unit SUBCUT ACHS [facility]; Protocol Lorazepam (Lorazepam 1 Mg Tablet) 1 mg PO Q4HR PRN PRN Reason: Anxiety Naloxone HCl (Naloxone 0.4 Mg/Ml Vial) 0.2 mg IV Q2MIN PRN PRN Reason: Opiate Reversal Ondansetron HCl (Ondansetron 4 Mg Odt) 4 mg PO NOW PRN PRN Reason: Nausea And Vomiting Ondansetron HCl (Ondansetron 4 Mg/2 Ml Inj) 4 mg IV NOW PRN PRN Reason: Nausea And Vomiting Last Admin: 03/27/23 22:11 Dose: 4 mg Documented By: JEANNIE Ondansetron HCl (Ondansetron 4 Mg/2 Ml Inj) 4 mg IV Q4HR PRN PRN Reason: Nausea And Vomiting Sennosides (Sennosides 8.6 Mg Tablet) 8.6 mg PO BID [facility] Discontinued Medications Sodium Chloride (Normal Saline 0.9%) 1,000 mls @ 1,000 mls/hr IV BOLUS ONE Stop: 03/28/23 00:19 Last Infusion: 03/27/23 23:45 Dose: 0 mls/hr Documented By: Admin: 03/27/23 22:45 Dose: 1,000 mls/hr Documented By: JEANNIE Ceftriaxone Sodium 2,000 mg/ (Sodium Chloride) 100 mls @ 200 mls/hr IV NOW ONE Stop: 03/27/23 23:59 Last Infusion: 03/28/23 01:00 Dose: 0 mls/hr Documented By: Admin: 03/28/23 00:20 Dose: 200 mls/hr Documented By: BS Sodium Chloride (Normal Saline 0.9%) 1,000 mls @ 1,000 mls/hr IV BOLUS ONE Stop: 03/28/23 01:22 Last Infusion: 03/28/23 02:03 Dose: 0 mls/hr Documented By: Admin: 03/28/23 00:24 Dose: 1,000 mls/hr Documented By: BS INSULIN DRIP PREMIX (Myxredlin Drip Premix) 100 unit in 100 mls @ 9 mls/hr IV TITRATE DEE DEE; Protocol Insulin Glargine (Insulin Glargine 100 Unit/Ml 3ml Pen) 20 unit SUBCUT NOW ONE Stop: 03/28/23 00:46 Last Admin: 03/28/23 02:35 Dose: 20 unit Documented By: GLORIA Co-signed By: BG Insulin Human Regular (Insulin Regular 100 Unit/Ml 3 Ml Vial) 9 unit IV NOW ONE Stop: 03/28/23 00:20 Last Admin: 03/28/23 00:46 Dose: 9 unit Documented By: JEANNIE Co-signed By: Lorazepam (Lorazepam 2 Mg/Ml Inj) 0.5 mg IV NOW ONE Stop: 03/28/23 02:23 Sennosides (Sennosides 8.6 Mg Tablet) 17.2 mg PO NOW ONE Stop: 03/28/23 02:29 Vital Signs Vital signs: Vital Signs - 8 hr 03/27/23 21:56 03/27/23 22:56 03/27/23 23:00 Temperature 97.6 F Pulse Rate 97 H 92 H Respiratory Rate 16 Blood Pressure 116/68 145/82 H Pulse Oximetry 94 95 Oxygen Delivery Method Room Air 03/27/23 23:00 03/27/23 23:30 03/27/23 23:30 Temperature Pulse Rate 91 H 93 H Respiratory Rate Blood Pressure 156/65 H Pulse Oximetry 96 98 Oxygen Delivery Method 03/28/23 00:00 03/28/23 00:00 Temperature Pulse Rate 95 H Respiratory Rate Blood Pressure 130/61 Pulse Oximetry 97 Oxygen Delivery Method MDM - Weakness Lab Data 03/27/23 22:04 03/27/23 22:04 Labs: Lab Results 03/27/23 03/27/23 03/27/23 Range/Units 22:04 22:04 22:04 WBC 9.8 (4.5-11.0) X10^3/uL RBC 4.14 L (4.5-5.9) X10^6/uL Hgb 12.0 L (13.5-17.5) g/dL Hct 36.3 L (41-53) % MCV 87.7 (80-100) fL MCH 28.9 (26-34) PG MCHC 33.0 (30-36) % RDW 12.7 (11.6-14.8) % Plt Count 366 (150-400) X10^3/uL Neut % (Auto) 74.5 (50-75) % Lymph % (Auto) 18.2 L (25-40) % Henry % (Auto) 6.7 (3-14) % Eos % (Auto) 0.3 L (2-4) % Baso % (Auto) 0.3 (0-2) % Neut # (Auto) 7300 H (0004-7390) /uL Lymph # (Auto) 1800 (7489-5673) /uL Henry # (Auto) 700 (0-900) /uL Eos # (Auto) 0 (0-450) /uL Baso # (Auto) 0 (0-100) /uL VBG pH (7.33-7.43) VBG pCO2 (45-50) mmHg VBG pO2 (35-45) mmHg VBG HCO3 (24-28) mmol/L VBG Total CO2 (24-29) mmol/L VBG O2 Saturation (70-75) % VBG Base Excess (0-4) mmol/L FiO2 Sodium 121 L (137-145) mmol/L Potassium 5.1 (3.4-5.1) mmol/L Chloride 79 L (98-107) mmol/L Carbon Dioxide 29 (22-32) mmol/L BUN 44 H (9-20) mg/dL Creatinine 1.82 H (0.66-1.25) mg/dL Estimated GFR 43 L (>60) mL/min BUN/Creatinine Ratio 24.2 H (6-22) Glucose 1037 H* (70-100) mg/dL Lactate (0.7-2.1) mmol/L Calcium 8.5 (8.4-10.2) mg/dL Total Bilirubin 0.4 (0.2-1.3) mg/dL GGT (15-73) U/L AST 19 (17-59) IU/L ALT 22 (<50) IU/L Alkaline Phosphatase 177 H (38-126) U/L Total Protein 8.0 (6.3-8.2) g/dL Albumin 3.9 (3.5-5.0) g/dL Globulin 4.1 (1.7-4.1) g/dL Albumin/Globulin Ratio 1.0 (1.0-2.8) Lipase 77 (23-300) U/L Urine Color Urine Appearance Urine pH (4.5-8.0) Ur Specific Alpha (1.000-1.035) Urine Protein (Negative) Urine Glucose (UA) (Negative) g/dL Urine Ketones (NEGATIVE) Urine Occult Blood (Negative) Urine Nitrate (Negative) Urine Bilirubin (NEGATIVE) Urine Urobilinogen (0.2) E.U./dL Ur Leukocyte Esterase (NEGATIVE) Urine RBC (0-5/HPF) Urine WBC (0-5/HPF) Ur Squamous Epith Cells (0-5/HPF) Urine Bacteria (None) Ur Culture Indicated? Salicylates (<20) mg/dL U Opiates 300ng/mL cut (Negative) Ur Oxycodone Screen (Negative) Urine Methadone Screen (Negative) Ur Barbiturates Screen (Negative) U Tricyclic Antidepress (Negative) Ur Phencyclidine Scrn (Negative) Ur Amphetamines Screen (Negative) U Methamphetamines Scrn (Negative) Ur MDMA Scrn (Ecstasy) (Negative) U Benzodiazepines Scrn (Negative) Urine Cocaine Screen (Negative) U Marijuana (THC) Screen (Negative) Ketones 0.10 (<0.27) mmol/L 03/27/23 03/27/23 03/27/23 Range/Units 22:04 22:04 22:05 WBC (4.5-11.0) X10^3/uL RBC (4.5-5.9) X10^6/uL Hgb (13.5-17.5) g/dL Hct (41-53) % MCV (80-100) fL MCH (26-34) PG MCHC (30-36) % RDW (11.6-14.8) % Plt Count (150-400) X10^3/uL Neut % (Auto) (50-75) % Lymph % (Auto) (25-40) % Henry % (Auto) (3-14) % Eos % (Auto) (2-4) % Baso % (Auto) (0-2) % Neut # (Auto) (7102-6799) /uL Lymph # (Auto) (9398-9784) /uL Henry # (Auto) (0-900) /uL Eos # (Auto) (0-450) /uL Baso # (Auto) (0-100) /uL VBG pH (7.33-7.43) VBG pCO2 (45-50) mmHg VBG pO2 (35-45) mmHg VBG HCO3 (24-28) mmol/L VBG Total CO2 (24-29) mmol/L VBG O2 Saturation (70-75) % VBG Base Excess (0-4) mmol/L FiO2 Sodium (137-145) mmol/L Potassium (3.4-5.1) mmol/L Chloride (98-107) mmol/L Carbon Dioxide (22-32) mmol/L BUN (9-20) mg/dL Creatinine (0.66-1.25) mg/dL Estimated GFR (>60) mL/min BUN/Creatinine Ratio (6-22) Glucose (70-100) mg/dL Lactate 2.8 H (0.7-2.1) mmol/L Calcium (8.4-10.2) mg/dL Total Bilirubin (0.2-1.3) mg/dL GGT 18 (15-73) U/L AST (17-59) IU/L ALT (<50) IU/L Alkaline Phosphatase (38-126) U/L Total Protein (6.3-8.2) g/dL Albumin (3.5-5.0) g/dL Globulin (1.7-4.1) g/dL Albumin/Globulin Ratio (1.0-2.8) Lipase (23-300) U/L Urine Color Yellow Urine Appearance Clear Urine pH 6.0 (4.5-8.0) Ur Specific Alpha <=1.005 (1.000-1.035) Urine Protein Trace H (Negative) Urine Glucose (UA) 3+ H (Negative) g/dL Urine Ketones Negative (NEGATIVE) Urine Occult Blood 1+ H (Negative) Urine Nitrate Negative (Negative) Urine Bilirubin Negative (NEGATIVE) Urine Urobilinogen 0.2 (0.2) E.U./dL Ur Leukocyte Esterase 2+ H (NEGATIVE) Urine RBC 0-1/hpf (0-5/HPF) Urine WBC >100/hpf H (0-5/HPF) Ur Squamous Epith Cells 0-1 /hpf (0-5/HPF) Urine Bacteria Few (2-10) H (None) Ur Culture Indicated? Specimen cultured Salicylates < 1.0 (<20) mg/dL U Opiates 300ng/mL cut (Negative) Ur Oxycodone Screen (Negative) Urine Methadone Screen (Negative) Ur Barbiturates Screen (Negative) U Tricyclic Antidepress (Negative) Ur Phencyclidine Scrn (Negative) Ur Amphetamines Screen (Negative) U Methamphetamines Scrn (Negative) Ur MDMA Scrn (Ecstasy) (Negative) U Benzodiazepines Scrn (Negative) Urine Cocaine Screen (Negative) U Marijuana (THC) Screen (Negative) Ketones (<0.27) mmol/L 03/27/23 03/27/23 Range/Units 22:05 22:42 WBC (4.5-11.0) X10^3/uL RBC (4.5-5.9) X10^6/uL Hgb (13.5-17.5) g/dL Hct (41-53) % MCV (80-100) fL MCH (26-34) PG MCHC (30-36) % RDW (11.6-14.8) % Plt Count (150-400) X10^3/uL Neut % (Auto) (50-75) % Lymph % (Auto) (25-40) % Henry % (Auto) (3-14) % Eos % (Auto) (2-4) % Baso % (Auto) (0-2) % Neut # (Auto) (2499-8245) /uL Lymph # (Auto) (3722-7804) /uL Henry # (Auto) (0-900) /uL Eos # (Auto) (0-450) /uL Baso # (Auto) (0-100) /uL VBG pH 7.36 (7.33-7.43) VBG pCO2 58.4 H (45-50) mmHg VBG pO2 29 L (35-45) mmHg VBG HCO3 33 H (24-28) mmol/L VBG Total CO2 34 H (24-29) mmol/L VBG O2 Saturation 50 L (70-75) % VBG Base Excess 7.0 H (0-4) mmol/L FiO2 21 Sodium (137-145) mmol/L Potassium (3.4-5.1) mmol/L Chloride (98-107) mmol/L Carbon Dioxide (22-32) mmol/L BUN (9-20) mg/dL Creatinine (0.66-1.25) mg/dL Estimated GFR (>60) mL/min BUN/Creatinine Ratio (6-22) Glucose (70-100) mg/dL Lactate (0.7-2.1) mmol/L Calcium (8.4-10.2) mg/dL Total Bilirubin (0.2-1.3) mg/dL GGT (15-73) U/L AST (17-59) IU/L ALT (<50) IU/L Alkaline Phosphatase (38-126) U/L Total Protein (6.3-8.2) g/dL Albumin (3.5-5.0) g/dL Globulin (1.7-4.1) g/dL Albumin/Globulin Ratio (1.0-2.8) Lipase (23-300) U/L Urine Color Urine Appearance Urine pH (4.5-8.0) Ur Specific Alpha (1.000-1.035) Urine Protein (Negative) Urine Glucose (UA) (Negative) g/dL Urine Ketones (NEGATIVE) Urine Occult Blood (Negative) Urine Nitrate (Negative) Urine Bilirubin (NEGATIVE) Urine Urobilinogen (0.2) E.U./dL Ur Leukocyte Esterase (NEGATIVE) Urine RBC (0-5/HPF) Urine WBC (0-5/HPF) Ur Squamous Epith Cells (0-5/HPF) Urine Bacteria (None) Ur Culture Indicated? Salicylates (<20) mg/dL U Opiates 300ng/mL cut Negative (Negative) Ur Oxycodone Screen Negative (Negative) Urine Methadone Screen Negative (Negative) Ur Barbiturates Screen Negative (Negative) U Tricyclic Antidepress Negative (Negative) Ur Phencyclidine Scrn Negative (Negative) Ur Amphetamines Screen Positive H (Negative) U Methamphetamines Scrn Positive H (Negative) Ur MDMA Scrn (Ecstasy) Negative (Negative) U Benzodiazepines Scrn Negative (Negative) Urine Cocaine Screen Positive H (Negative) U Marijuana (THC) Screen Negative (Negative) Ketones (<0.27) mmol/L Imaging Data Chest x-ray: Radiologist Impression: [address] [id number] ReportSigned Patient: Rafael Harvey JMR#: [id number]: 1965Acct:[id number]/Sex: 56 / MDate of Service: 03/27/22Loc: EDAccession Number: [id number] Procedure: XR chest 1V Ordering Provider: Sammi Pickens MD PROCEDURE: XR CHEST 1V INDICATIONS: dypsnea TECHNIQUE: One view of the chest was acquired. COMPARISON: [facility], CR, XR CHEST 1 VIEW, 03/22/2022, 21:39. [facility], CR, XR CHEST 1V, 10/28/2020, 17:06. FINDINGS: Surgical changes and devices: None. Lungs and pleura: Previously seen left pleural effusion and left basilar opacities have resolved. No acute consolidation. No pneumothorax. Mediastinum: Mediastinal contours appear normal. Heart size is normal. Bones and chest wall: No suspicious bony lesions. Overlying soft tissues appear unremarkable. IMPRESSION: No acute cardiopulmonary abnormality. Dictated by: Festus Webb M.D. on 03/27/2022 at 19:40 Approved by: Festus Webb M.D. on 03/27/2022 at 19:41 [facility] Narrative Medical decision making narrative: Patient here for general malaise and weakness. Patient has history of insulin dependent diabetes. Has been out of his medications for 1 year. Has not seen a provider in over a year. Patient has had polyuria and polydipsia. Patient does self cath due to enlarged prostate. No vomiting or diarrhea. No cough cold congestion fever or chills After history and exam CBC CMP ketones VBG IV hydration, insulin, Rocephin, blood culture, urinalysis with culture, chest x-ray [facility] CC: Weakness Complicating co-morbidities: Noncompliance/diabetes Data collected from: Patient Medical records reviewed: No recent visits for this complaint Differential considered: Includes but not limited to DKA noncompliance hyperglycemia UTI Exam documented above, pertinent findings include: Nontender abdomen Lab Test results independently reviewed as above. Pertinent findings: WBC 9.8 hemoglobin 12.0 sodium 121 potassium 5.1 bicarb 29 BUN 44 creatinine 1.82 GFR 43 glucose 1037 urinalysis negative ketone WBC greater than 100 Imaging studies independently reviewed: Chest x-ray no acute finding Consultations: 12:20 a.m.. Spoke with hospitalistKedar, she will see patient for admission, give insulin 9 units, give insulin drip Treatments: Insulin normal saline Re-evaluations: Reviewed results with patient and agrees for admission for diabetes control Discussion: Appropriate for admission for diabetes and hyperglycemia control. IV fluid hydration started here. Insulin provided as well. Not toxic. Diagnosis: Hyperglycemia/noncompliant Critical Care Time Critical Care Time Attestation: Critical Care Time 35 minutes: Critical care time is separate from other billable procedures. This critical care time includes consultation with family and other consulting doctors, review of records, and interpretation of data from labs, imaging, etc. Discharge Plan Departure Patient Disposition: Admitted as Observation Clinical Impression: Acute hyperglycemia, Acute UTI Admit Date/Time: 03/28/23 00:19 Admit Provider: Candice Thacker
[2023-03-28] MEDS: cefTRIAXone 2,000 MG in SODIUM CHLORIDE 0.9% 100 ML 200 MG IV (00:20)
[2023-03-28] MEDS: SODIUM CHLORIDE 0.9% 1,000 ML 1000 ML IV (00:24)
--- NOTE | 2023-03-28 00:34 | DI.CT.S_ITS ---
PROCEDURE: CT HEAD/BRAIN WO CON INDICATIONS: HHS TECHNIQUE: Noncontrast 4.5 mm thick angled axial sections acquired from the foramen magnum to the vertex, with coronal and sagittal reformats. For radiation dose reduction, the following was used: automated exposure control, adjustment of mA and/or kV according to patient size. COMPARISON: [facility], CT, CT HEAD/BRAIN WO CON, 10/28/2020, 16:58. FINDINGS: Image quality: Excellent. CSF spaces: Basal cisterns are patent. No extra-axial fluid collections. Ventricles are normal in size and shape. Brain: No intracranial hemorrhage, mass, or mass effect. Acosta-white matter interface appears preserved. Skull and face: Calvarium and visualized facial bones are intact, without suspicious lesions. Sinuses: Visualized sinuses and mastoids are clear. IMPRESSION: 1. No acute intracranial abnormality. Dictated by: Dl Leal M.D. on 03/28/2023 at 1:34 Approved by: Dl Leal M.D. on 03/28/2023 at 1:35
--- NOTE | 2023-03-28 00:35 | DI.CT.S_ITS ---
PROCEDURE: CT CHEST ABD PEL WO CON INDICATIONS: HHS, hx urinary retention/hydronephrosis TECHNIQUE: After the administration of oral contrast, 5 mm thick sections acquired from the lung apices to the symphysis pubis. 5 mm thick coronal and sagittal reformats acquired, with additional 7 mm coronal MIP reformats through the lungs. For radiation dose reduction, the following was used: automated exposure control, adjustment of mA and/or kV according to patient size. COMPARISON: [facility], CT, CT ANGIO CHEST PE, 03/23/2022, 0:23. FINDINGS: Image quality: Excellent. CHEST: Lower Neck: No lymphadenopathy by size criteria. Thyroid: Visualized thyroid demonstrates no discrete nodules. Axillae: No lymphadenopathy by size criteria. Chest Wall: Unremarkable. Lungs and Airways: No acute consolidation. There are moderate centrilobular and mild paraseptal emphysematous changes. The trachea and central airways are patent. Pleura: No pneumothorax or pleural effusions. Heart: Heart size is normal. No pericardial effusion. Thoracic Vessels: The aorta and pulmonary arteries are normal in size. Mediastinum and Madeleine: No lymphadenopathy by size criteria. Esophagus: No wall thickening. There is a small hiatal hernia. ABDOMEN: Liver: Noncontrast evaluation of the liver demonstrates no discrete mass. Gallbladder: Within normal limits without calcified gallstones. Biliary ducts: No biliary ductal dilatation. Pancreas: Unremarkable. Spleen: Normal in size. Adrenal Glands: No adrenal nodules. Kidneys and Ureters: There is bilateral moderate hydroureteronephrosis extending to the urinary bladder. No obstructing stone identified. There is mild perinephric fat stranding bilaterally. Stomach and Bowel: Stomach, small bowel loops, and colon are normal in caliber and wall thickness. Peritoneum: No abnormal intraperitoneal fluid. No free air. Ventral Wall: No hernia. Abdominal Nodes: No retroperitoneal or mesenteric adenopathy by size criteria. Vessels: Aorta and inferior vena cava are normal in size. PELVIS: Pelvic Organs: Unremarkable. Bladder: There is marked distention of the urinary bladder with mild bladder wall thickening and trabeculation. No calcified urinary stones. Pelvic Nodes: No enlarged lymph nodes. Miscellaneous: No inguinal hernias are seen. Bones: Visualized osseous structures demonstrate no suspicious focal lesions. IMPRESSION: 1. Marked distention of the urinary bladder with mild bladder wall thickening and trabeculation compatible with sequelae of mild chronic bladder outlet obstruction. 2. Mild bilateral hydroureteronephrosis likely secondary to bladder distention. No obstructing stones visualized. Dictated by: Dl Leal M.D. on 03/28/2023 at 2:26 Approved by: Dl Leal M.D. on 03/28/2023 at 2:36
[2023-03-28] MEDS: INSULIN REGULAR 100 UNIT/ML 3 ML VIAL 9 UNIT IV (00:46)
[2023-03-28] MEDS: INSULIN DRIP PREMIX 100 UNIT/100 ML PLAST..BAG 9 UNIT IV (00:46)
[2023-03-28 00:54] LABS: UR Morphine/Opiate cutoff 300 Negative (Negative); Ur Creatinine Normal (Normal); Ur Specific Gravity Normal (Normal); Urine Amphetamines Positive (Negative); Urine Barbiturates Negative (Negative); Urine Benzodiazepines Negative (Negative); Urine Cocaine Positive (Negative); Urine MDMA Negative (Negative); Urine Methadone Negative (Negative); Urine Methamphetamines Positive (Negative); Urine Oxycodone Negative (Negative); Urine Phencyclidine Negative (Negative); Urine Tetrahydrocannabinol Negative (Negative); Urine Tricyclic Antidepressant Negative (Negative); Urine pH Normal (Normal)
[2023-03-28 00:59] LABS: Gamma Glutamyl Transpeptidase 18 U/L (15-73); Salicylate < 1.0 mg/dL (<20)
[2023-03-28 01:01] LABS: Lactate (Lactic Acid) 2.8 mmol/L (0.7-2.1)
--- NOTE | 2023-03-28 01:03 | P.HP_ITS ---
History of Present Illness History of Present Illness Date Patient Seen: 03/28/23 Time Patient Seen: 01:03 Chief complaint: ABD Pain Narrative: Rafael Harvey is a 57 years old male with a history of uncontrolled type 2 diabetes, methamphetamine use, heroin addiction, history of UTIs, chronic hep C, BPH with obstruction, chronic urinary retention with severe hydronephrosis, and medication/medical management noncompliance who presented to the ED for general malaise, weakness, polyuria, polydipsia, severe bilateral flank pain.?Having been out of his diabetes medications & not seen a provider for over a year, no longer has a PCP. Patient is alert and orient data x3 but a poor historian. Patient intermittent self cath due to enlarged prostate.?Denies fever, abd pain, vomiting, diarrhea, cough, cold, congestion, chills, chest pain, shortness in breath, headache, changes in vision, difficulty swallowing, speech impairment, numbness, tingling, difficulty with ambulation, recent falls, head injury, LOC, recent exposure to illness, urinary incontinence/retention, dysuria, hematuria, bowel changes, constipation, incontinence, melena, rashes, recent changes to medication, illness, injury, or trauma. At the time of admit patient is alert and oriented x3, hemodynamically stable 97.6, 116/68, 97, 16, 94% on room air. Patient has no white count mild left s hift 7300, sodium 121, corrected sodium 139, chloride 79, BUN 44, creatinine 1.82, GFR 43, glucose 1037, urinalysis is positive for protein, glucose, occult blood, WBC and bacteria culture pending. VBG: PH 7.355 bicarb 32.6, TCO2 34, BE 7. I personally reviewed CXR negative for any acute processes, EKG: NS at a rate of [address] or T-wave changes, tox screen positive for methamphetamines, amphetamines, cocaine. Serum ketones are negative urine ketones negative. patient admitted for HHS/hyperglycemia due to uncontrolled type 2 insulin- dependent diabetes and VIV secondary to acute UTI. [facility] Medical History (Updated 03/28/23 @ 03:06 by YESSY Foster) Acute urinary retention Asthma Bipolar 1 disorder Bladder atony Bladder outlet obstruction BPH (benign prostatic hyperplasia) BPH with obstruction/lower urinary tract symptoms Chronic hepatitis C Constipation Depression Diabetes type 2, uncontrolled Heroin addiction History of UTI Hydronephrosis determined by ultrasound Intermittent self-catheterization of bladder Methamphetamine use Methamphetamine use disorder, moderate Urinary retention Surgical History History of circumcision History of liver biopsy History of mandibular surgery (~1983) Family History Other Adopted person Social History marital status: unmarried,single number of children: 2 household members: none occupational status: disabled Smoking Status: Current every day smoker Tobacco: How many years used: 40 alcohol intake: former caffeine: No Meds Home Medications and Allergies Home Medications Medication Instructions Recorded Confirmed Type alfuzosin 10 mg tablet,extended 10 mg PO DAILY #90 tabs 11/25/20 12/22/20 Rx release 24 hr metformin 500 mg tablet 500 mg PO BID #60 tabs 12/22/20 12/22/20 Rx Allergies Allergy/AdvReac Type Severity Reaction Status Date / Time codeine [CODEINE] AdvReac Intermediate GI Upset Verified 03/27/22 17:29 Review of Systems Review of Systems Narrative: All 12 point systems reviewed with the patient and are negative except otherwise documented. Exam Vital Signs (past 8 hours): - 03/27/23 21:56 Temperature 97.6 F Pulse Rate 97 H Respiratory Rate 16 Blood Pressure 116/68 Pulse Oximetry 94 Oxygen Delivery Method Room Air Oxygen Delivery Method Room Air Narrative Exam Narrative: General: Patient is a thin frail chronically ill-appearing, male who appears o lder than stated age, in moderate distress/pain at this time. The patient is orientated x3 and hemodynamically stable at this time. HEENT: Normocephalic, atraumatic, extraocular muscles intact, oral pharynx is clear and mucous membranes are very dry. Neck is supple and symmetric, trachea is midline, no adenopathy, no thyroid enlargement, nontender, no masses palpated. Negative for JVD Chest: Equal chest rise without nasal flaring, retractions, tachypneic or labored breathing. Lungs: Auscultation of all lung archuleta are decreased coarse and occasional expiratory wheezing Cardio: regular rate and rhythm without murmur, rubs, or gallops, no carotid bruit, no cardiac pulsations present. Abdomen: Soft nontender, abdominal midline: large, hard, baseball size mass just below umbilicus, nontender. negative for organomegaly. Bowel sounds are present in all 4 quadrants without guarding or rebound, Positive bilateral CVA tenderness. Bladder scan showed>999cc in bladder Musculoskeletal: Muscle strength and tone are equal, muscle wasting noted greater than expected for age, no deformity, crepitus, effusions, cyanosis, clubbing or edema present. Full range of motion intact radial and pedal pulses are normal. Skin: Warm extremely dry and intact without rashes, ulcerations or petechiae. Neuro: Alert and orientated x3, moves all extremities, sensation to touch intact, no gross deficits noted of cranial nerves. Psych: Patient has a disheveled thin, frail, chronically ill appearance. Objective Labs 03/27/23 22:04 03/27/23 22:04 Labs: Laboratory Results - last 24 hr 03/27/23 03/27/23 03/27/23 22:04 22:04 22:04 WBC 9.8 RBC 4.14 L Hgb 12.0 L Hct 36.3 L MCV 87.7 MCH 28.9 MCHC 33.0 RDW 12.7 Plt Count 366 Neut % (Auto) 74.5 Lymph % (Auto) 18.2 L Gibson % (Auto) 6.7 Eos % (Auto) 0.3 L Baso % (Auto) 0.3 Neut # (Auto) 7300 H Lymph # (Auto) 1800 Gibson # (Auto) 700 Eos # (Auto) 0 Baso # (Auto) 0 Sodium 121 L Potassium 5.1 Chloride 79 L Carbon Dioxide 29 BUN 44 H Creatinine 1.82 H Estimated GFR 43 L BUN/Creatinine Ratio 24.2 H Glucose 1037 H* Calcium 8.5 Total Bilirubin 0.4 GGT AST 19 ALT 22 Alkaline Phosphatase 177 H Total Protein 8.0 Albumin 3.9 Globulin 4.1 Albumin/Globulin Ratio 1.0 Lipase 77 Urine Color Urine Appearance Urine pH Ur Specific [place] Urine Protein Urine Glucose (UA) Urine Ketones Urine Occult Blood Urine Nitrate Urine Bilirubin Urine Urobilinogen Ur Leukocyte Esterase Urine RBC Urine WBC Ur Squamous Epith Cells Urine Bacteria Ur Culture Indicated? Salicylates U Opiates 300ng/mL cut Ur Oxycodone Screen Urine Methadone Screen Ur Barbiturates Screen U Tricyclic Antidepress Ur Phencyclidine Scrn Ur Amphetamines Screen U Methamphetamines Scrn Ur MDMA Scrn (Ecstasy) U Benzodiazepines Scrn Urine Cocaine Screen U Marijuana (THC) Screen Ketones 0.10 03/27/23 03/27/23 03/27/23 22:04 22:05 22:05 WBC RBC Hgb Hct MCV MCH MCHC RDW Plt Count Neut % (Auto) Lymph % (Auto) Gibson % (Auto) Eos % (Auto) Baso % (Auto) Neut # (Auto) Lymph # (Auto) Gibson # (Auto) Eos # (Auto) Baso # (Auto) Sodium Potassium Chloride Carbon Dioxide BUN Creatinine Estimated GFR BUN/Creatinine Ratio Glucose Calcium Total Bilirubin GGT 18 AST ALT Alkaline Phosphatase Total Protein Albumin Globulin Albumin/Globulin Ratio Lipase Urine Color Yellow Urine Appearance Clear Urine pH 6.0 Ur Specific [place] <=1.005 Urine Protein Trace H Urine Glucose (UA) 3+ H Urine Ketones Negative Urine Occult Blood 1+ H Urine Nitrate Negative Urine Bilirubin Negative Urine Urobilinogen 0.2 Ur Leukocyte Esterase 2+ H Urine RBC 0-1/hpf Urine WBC >100/hpf H Ur Squamous Epith Cells 0-1 /hpf Urine Bacteria Few (2-10) H Ur Culture Indicated? Specimen cultured Salicylates < 1.0 U Opiates 300ng/mL cut Negative Ur Oxycodone Screen Negative Urine Methadone Screen Negative Ur Barbiturates Screen Negative U Tricyclic Antidepress Negative Ur Phencyclidine Scrn Negative Ur Amphetamines Screen Positive H U Methamphetamines Scrn Positive H Ur MDMA Scrn (Ecstasy) Negative U Benzodiazepines Scrn Negative Urine Cocaine Screen Positive H U Marijuana (THC) Screen Negative Ketones Assessment & Plan Assessment & Plan narrative: Rafael Harvey is a 57 years old male with admit history uncontrolled type 2 diabetes, methamphetamine use, heroin addiction, history of UTIs, chronic hep C, BPH with obstruction, urinary retention with severe hydronephrosis, and medication/medical management noncompliance. Patient admitted for HHS/hyperglycemia due to uncontrolled type 2 insulin-dependent diabetes and VIV secondary to acute UTI. Hyperglycemia/HHS, acute, secondary to uncontrolled insulin-dependent type 2 diabetes, acute on chronic, present on admission * Initial glucose 1037, urine ketones negative, serum ketones negative, gap 13, no DKA, serum bicarb 29, A&O x3, VBG PH:7.36, serum osmolality pending, not septic * differential alcoholic ketoacidosis, starvation ketosis, toxic metabolic encephalopathy, anion gap acidosis, metformin induced lactic acidosis * Initial 9 units insulin bolus given, patient placed on [facility] insulin drip protocol: 9units/HR-if glucose does not decreased by 50-70 in 1st our double insulin to 18units/HR * Ordered 20 units of Lantus now, then initiate 20 units q.h.s., off drip: Diabetic protocol: Medium dose sliding scale, glucose AC/HS * NS at 100 cc/HR * BMP q.4 hours, repeat VBG in am * A1c, amylase, lipase, TSH, phosphorus, BNP, troponin * Neuro checks, mental status checks. * differential alcoholic ketoacidosis, starvation ketosis, toxic metabolic encephalopathy, anion gap acidosis, metformin induced lactic acidosis * goal to correct estimated deficits within 24 hours BS <200, Ph>7.3, HC03>18, K+ 4-5 * monitor for heart failure, cerebral edema, or arrhythmias (prolonged QT-warning),-monitor for cardiac dysfunction, hemolytic anemia, and or respiratory depression. 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 * Severe bilateral CVA tenderness on exam * Renal ultrasound ordered for tomorrow * Pending imaging patient may require urology consult * Initially Dilaudid IV as needed for pain management. * received 2 L NS bolus and 2 g Rocephin in ED * Urine culture pending * Rocephin 1 g Q 24 hours * NS@100cc/hr- * CT abdomen chest pelvis-pending to assess for possible hydronephrosis or obstr uction due to Hx of severe hydronephrosis * Strict I&O notify for UOP< 50 cc/HR * Initial bladder scan demonstrated> 999 cc-Martinez to be placed * Bladder scans as needed Abdominal mass, acute, present on admission * found on admit exam: large, hard, dicrete baseball size mass just below umbilicus, midline, nontender. * CT chest abdomen pelvis pending Methamphetamine, amphetamine, cocaine, use, acute on chronic, present on admission * tox screen positive for methamphetamines, amphetamines, & cocaine. * Ativan as needed for anxiety/agitation * EXTERIOR INTERIOR SPECIALIST consult Malnutrition, mild, acute on chronic, present on admission * Likely secondary to uncontrolled diabetes and substance use * BMI 20 * patient's malnutrition places them at high risk for medical and surgical complications in relation to acute illness/chronic illness. This increases the difficulty in complexity of medical management and increases the chances poor outcomes such as mortality and morbidity as well as impaired wound healing, and immune suppression. * dietary consult ordered to evaluate and implement steps to improve caloric intake and nutrition. Code status:Full Surrogate decision maker: Ami Harvey Mother DVT/VTE prophylaxis: Lovenox and SCDs Social determinants of health that may influence the patient's condition: Subs tance use (methamphetamine, amphetamine, cocaine), medication noncompliance, malnutrition, poor management of urinary retention and insulin-dependent type 2 diabetes creates increased complication of acute and chronic illnesses, worsens the difficulty in complexity and medical management increases the chances of poor outcome such as mortality and morbidity. Disposition: Patient admitted to the ICU for management of HHS, with severe hyperglycemia, and acute UTI, expected length of stay to exceed 2 midnights. I have utilized all available immediate resources to obtain, update, or review the patient's current medications. I confirmed that the patient's advanced care plan is present, Code status is documented and/or surrogate decision maker is listed in the patient's medical record. I have personally reviewed patient's chart notes from PCP, specialists, diagnostic imaging, and laboratory results.
[2023-03-28 01:40] LABS: PCO2 VBG 58.4 mmHg (45-50); PO2 VBG 29 mmHg (35-45); pH VBG 7.36 (7.33-7.43)
[2023-03-28 01:41] LABS: Fractionated Inspired Oxygen 21; HCO3 VBG 33 mmol/L (24-28); Oxygen Saturation VBG 50 % (70-75); Total CO2 VBG 34 mmol/L (24-29)
--- NOTE | 2023-03-28 02:24 | DI.US.S_ITS ---
PROCEDURE: US RENAL COMPLETE INDICATIONS: HHS/SEVERE URINE RETENTION/UTI TECHNIQUE: Real-time scanning was performed of the kidneys and bladder, with image documentation. COMPARISON: [facility], , US RENAL COMPLETE, 10/29/2020, 8:22. FINDINGS: Kidneys: Kidneys are normal in size. Right kidney measures 13.5 cm long; left kidney measures 12.3 cm long. Right renal cortical thickness is 2.0 cm; left renal cortical thickness is 2.0 cm. Renal cortical echotexture is increased. Moderate bilateral pelvocaliectasis No suspicious solid mass lesions. Bladder: Martinez catheter within a mostly decompressed urinary bladder. Diffuse area bladder wall thickening. Miscellaneous: No free pelvic fluid. IMPRESSION: Moderate bilateral pelvocaliectasis. Increased renal parenchymal echogenicity, which may indicate acute or chronic parenchymal disease. Dictated by: Shahram Bell M.D. on 03/28/2023 at 8:32 Approved by: Shahram Bell M.D. on 03/28/2023 at 8:36
[2023-03-28] MEDS: SODIUM CHLORIDE 0.9% 1,000 ML 100 ML IV (02:35)
[2023-03-28] MEDS: INSULIN GLARGINE 100 UNIT/ML 3ML PEN 20 UNIT SUBCUT ×2 (02:35→10:06)
[2023-03-28 02:41] LABS: Reflexed Lactate in 2 Hours Y
[2023-03-28] MEDS: LORazepam 2 MG/ML INJ 0.5 MG IV (02:46)
[2023-03-28] MEDS: HYDROMORPHONE 1 MG INJ IV (02:46)
[2023-03-28 03:18] LABS: Add Manual Diff / Slide Review NO; Basophils Absolute Auto 200 /uL (0-100); Basophils Percent Auto 1.8 % (0-2); Eosinophils Absolute Auto 100 /uL (0-450); Eosinophils Percent Auto 0.5 % (2-4); Hematocrit 34.2 % (41-53); Hemoglobin 11.8 g/dL (13.5-17.5); Lymphocytes Absolute Auto 2400 /uL (1100-4500); Lymphocytes Percent Auto 18.9 % (25-40); Mean Corpuscular HGB Conc 34.3 % (30-36); Mean Corpuscular Hemoglobin 28.4 PG (26-34); Mean Corpuscular Volume 82.6 fL (80-100); Monocytes Absolute Auto 800 /uL (0-900); Monocytes Percent Auto 6.2 % (3-14); Neutrophils Absolute Auto 9100 /uL (1500-7000); Neutrophils Percent Auto 72.6 % (50-75); Platelet Count 366 X10^3/uL (150-400); Red Blood Cell Count 4.14 X10^6/uL (4.5-5.9); Red Cell Distribution Width 12.6 % (11.6-14.8); White Blood Cell Count 12.5 X10^3/uL (4.5-11.0)
[2023-03-28 03:21] LABS: Magnesium 2.2 mg/dL (1.6-2.3)
[2023-03-28 03:21] LABS: BUN Creatinine Ratio 23.8 (6-22); Blood Urea Nitrogen 43 mg/dL (9-20); Calcium 8.6 mg/dL (8.4-10.2); Carbon Dioxide 28 mmol/L (22-32); Chloride 94 mmol/L (98-107); Estimated Glomerular Filt Rate 43 mL/min (>60); Glucose 322 mg/dL (70-100); HEMOLYSIS 56 (0-50); Sodium 134 mmol/L (137-145)
[2023-03-28 03:22] LABS: Lactate 2HR (Lactic Acid Rflx) 2.5 mmol/L (0.7-2.1)
[2023-03-28 03:22] LABS: Potassium 4.2 mmol/L (3.4-5.1)
[2023-03-28 03:33] LABS: Troponin I < 0.012 ng/mL (0.01-0.034)
[2023-03-28 04:35] LABS: Amylase 50 U/L (30-110); Cholesterol 123 mg/dL (140-199); HDL Cholesterol 29 mg/dL (40-60); LDL Cholesterol Calculated 41 mg/dL (<100); Lipase 68 U/L (23-300); Phosphorous 3.9 mg/dL (2.5-4.5); Triglycerides 264 mg/dL (35-150)
[2023-03-28 04:44] LABS: NT-proBNP (BNP-Adult 18+) 62 pg/mL (<125)
[2023-03-28 04:47] LABS: MRSA (Nasal) PCR Not Detected (Not Detect)
[2023-03-28 05:16] LABS: TSH w/ Reflex to FT4 1.19 uIU/mL (0.47-4.68)
--- NOTE | 2023-03-28 06:24 | PC.NURSE ---
Shift Note-Patient brought to ICU room 231 at 0200, A/Ox4, tearful, cooperative. Insulin gtt at 9units/hr, CBG >500, lab in room to draw BMP, CBC, Blood Cultures, and lactate. Patient came to room incontinent urine, was incontinent again within 1/2 hour, bladder scanned for >999ml, discussed Martinez catheter placement vs straight I/O catheter, patient states you will have to knock me out very anxious, also c/o abdominal and flank pain, has firm bladder distention. Did tolerate Martinez placement after receiving IV Dilaudid and IV Ativan, 1600ml cloudy pale yellow urine immediately returned. Glucose per lab value back at 0300 = 322, then 179 at 0400, reported to [facility], insulin off at 0415 as ordered, 1x dose Lantus 20units was given soon after arrival to floor, NS @ 100ml/hr. VSS.
[2023-03-28 08:09] LABS: BUN Creatinine Ratio 24.7 (6-22); Blood Urea Nitrogen 36 mg/dL (9-20); Calcium 8.1 mg/dL (8.4-10.2); Carbon Dioxide 31 mmol/L (22-32); Chloride 101 mmol/L (98-107); Estimated Glomerular Filt Rate 56 mL/min (>60); Glucose 166 mg/dL (70-100); HEMOLYSIS < 15 (0-50); Potassium 3.3 mmol/L (3.4-5.1); Sodium 136 mmol/L (137-145)
[2023-03-28] MEDS: SENNOSIDES 8.6 MG TABLET PO (09:32)
[2023-03-28] MEDS: ENOXAPARIN 40 MG/0.4 ML SYRINGE SUBCUT (09:32)
[2023-03-28] MEDS: INSULIN LISPRO 100 UNIT/ML 3ML VIAL SUBCUT ×4 (09:32→21:21)
[2023-03-28] MEDS: POTASSIUM CHLORIDE 20 MEQ TAB 40 MEQ PO ×2 (09:32→15:25)
--- NOTE | 2023-03-28 11:36 | CM.DANOTE ---
Patient is a 57 yo male who was admitted on 03/28/23 today for Abd Pain. Pt has [employer] and [facility] for insurance and no PCP. EMR was reviewed. Per , pt with uncontrolled blood glucose of 1000 with VIV secondary to UTI with urinary retention at baseline and likely to d/c with ramos and outpt Urology f/u. Pt's UDS also positive for amphetamines/methamphetamines/cocaine. Pt last admitted in Oct 2020 for similar and discharged home with PCP list and declined KATHY tx at that time as well. SW met bedside with pt and explained role and pt very drowsy and medicated and limited responses but pt confirms he lives in [place] alone and no longer in a relationship with his Sig Other who lives in [place] with their young son, they do not have much contact. Pt admits to daily meth use and confirms he has a hx of treatment in the past but does not feel that he needs formal tx and that I know what I need to do, I just need to follow through and do it. Pt confirms he has a remote hx of alcohol abuse and heroin addition but states since he was dx with Hep C he stopped drinking and using heroin. Pt aware of the CD resources available. Pt denies any recent KATHY tx and SW inquired if pt might be ready for MAT tx through like [facility] or [facility] and pt declines at this time and not interested. Pt states on his contacts are his mother who lives locally but they do not communicate much right now but she could assist some if needed. Pt's other contact is Karyna, pt's Dtr's mother, who they continue to have some contact but not much. Pt feels he has local supportive friends. Pt does not currently work but receives S.S[employer]I for his monthly income and does not drive as he does not currently have a vehicle. Pt has Medicaid transport benefits. Pt confirms he currently does not have a PCP, attempted to establish with Dr. Hamilton but pt has a hx of noncompliance and Dr. Hamilton has not seen the pt for 2 yrs and states pt no longer his established pt for PCP. Plan: SW to follow with pt when he is more medically appropriate and feeling better for ongoing discussion about KATHY tx and PCP list. VANESSA Mcdaniel Discharge Planning/Care Management CM Discharge Assessment Start: 03/28/23 11:33 Freq: Status: Active Protocol: Document 06/12/23 11:34 BF (Rec: 03/28/23 11:36 BF [id number]) Discharge Planning Assessment Assigned [employer] Sheet VANESSA Longo DPOA/Assigned Designee Name none Advance Directives? No Advance Directives on File No History Provided By Patient,Medical Record Has Patient been admitted in last 30 No days? Prior Living Arrangements Apartment/Condo Household Members none Type of transporation used prior to Medicaid Transport admit Comment Has medicaid transport Independent with ADL's Yes Is patient alert and oriented? Yes Caregiver for Another No: has 2 yo son but not the caregiver, lives with mom Barriers to Discharge No Discharge Plan Home Transportation Arrangement Likely mom or Medicaid transport at d/c Referrals Initiated Other Additional Comment Medicaid transport and PCP clinics Whiteboard Updated in Patient Room with Yes name and ext. # of [employer] Sheet Review Status In Process Please Provide Date Initial DC 03/28/23 Assessment Was Performed Next Review Type Continued Stay Review
--- NOTE | 2023-03-28 16:10 | DIET.CONS ---
Dietary Consultation Note Admission Date: 03/28/2023 00:19 Assessment: 57y M with hx DM2 and polysubstance use referred to nutrition for low BMI and admit BG >1,000. RD saw pt in October 2020 inpatient for DM education as pts A1c was >14. Pt reported high intake sugar sweetened beverages, was counselled to switch to SF. Pt did not go on DM meds upon d/c then reported to PCP in December of that year that BGs were 100-150. However, in office POC BG was >250. Provider had pt start 500mg metformin BID. Pt now reports being out of DM meds x1y and has not seen PCP in same amount of time. Admit BG was >1000 indicating pt needs to be on insulin upon d/c. Pt urine positive for amphetamines and cocaine. Pts BMI is concerning r/t suboptimal DM2 management and polysubstance use. Pt has consumed 100% of POs since admission. Ht: 182.88 cm Wt: 68.5 kg BMI: 20.5 Last BM: 03/27/23 (03/28/23 13:28) MNA: Power Score: 21 Diet: 03/28/23 Breakfast Carbohydrate Consistent Diet Diet Modifications: Carbohydrate level: Small (2 CHO) Bedtime snack: Yes Reflex DM orders: No Nutrition Percent Meal Consumed 100% 03/28/23 13:18 Percent Meal Consumed 100% 03/28/23 10:00 Labs: RBC 4.14 X10^6/uL (4.5-5.9) L 03/28/23 02:35 Hgb 11.8 g/dL (13.5-17.5) L 03/28/23 02:35 Hct 34.2 % (41-53) L 03/28/23 02:35 Creatinine 1.46 mg/dL (0.66-1.25) H 03/28/23 07:44 Lactate 2.5 mmol/L (0.7-2.1) H 03/28/23 03:00 NT-Pro-B Natriuret Pep 62 pg/mL (<125) 03/28/23 02:35 Nutrition Diagnosis: Chronic Protein Calorie Malnutrition r/t difficulty managing self care aeb BMI 20.5, polysubstance use, pt with suboptimal DM management out of meds x1y and no PCP f/u, admission with BG >1000. Interventions: 1. Recc close f/u with PCP and initiation of home insulin therapy. 2. Recc complete cessation of substances which reduce appetite awareness to support nutrition status. 3. Recc ONS if POs fall below 75%. Electronically Signed by: Kitty Peñaloza 03/28/23 16:10 Clinical Dietitian [address] [id number]
[2023-03-28] MEDS: cefTRIAXone 1,000 MG in SODIUM CHLORIDE 0.9% 100 ML 200 MG IV (21:20)
[2023-03-28] MEDS: SODIUM CHLORIDE 0.9% FLUSH 10 ML IV (21:21)
[2023-03-29] VITALS: BP 124/69; PULSE 78; RESP 17; TEMP 36.2; O2SAT 98
[2023-03-29 02:00] VITALS: BP 113/71; PULSE 79; RESP 15; O2SAT 97
[2023-03-29 04:00] VITALS: BP 130/60; PULSE 67; RESP 17; TEMP 36.1; O2SAT 99
[2023-03-29 04:49] LABS: Add Manual Diff / Slide Review NO; Basophils Absolute Auto 0 /uL (0-100); Basophils Percent Auto 0.4 % (0-2); Eosinophils Absolute Auto 100 /uL (0-450); Eosinophils Percent Auto 0.8 % (2-4); Hematocrit 35.5 % (41-53); Hemoglobin 12.3 g/dL (13.5-17.5); Lymphocytes Absolute Auto 3100 /uL (1100-4500); Lymphocytes Percent Auto 34.8 % (25-40); Mean Corpuscular HGB Conc 34.7 % (30-36); Mean Corpuscular Hemoglobin 28.7 PG (26-34); Mean Corpuscular Volume 82.7 fL (80-100); Monocytes Absolute Auto 900 /uL (0-900); Monocytes Percent Auto 9.6 % (3-14); Neutrophils Absolute Auto 4900 /uL (1500-7000); Neutrophils Percent Auto 54.4 % (50-75); Platelet Count 348 X10^3/uL (150-400); Red Blood Cell Count 4.29 X10^6/uL (4.5-5.9); Red Cell Distribution Width 12.7 % (11.6-14.8)
[2023-03-29 04:59] LABS: BUN Creatinine Ratio 22.2 (6-22); Blood Urea Nitrogen 26 mg/dL (9-20); Calcium 8.7 mg/dL (8.4-10.2); Carbon Dioxide 33 mmol/L (22-32); Chloride 100 mmol/L (98-107); Estimated Glomerular Filt Rate > 60 mL/min (>60); Glucose 208 mg/dL (70-100); HEMOLYSIS < 15 (0-50); Potassium 4.3 mmol/L (3.4-5.1); Sodium 138 mmol/L (137-145)
[2023-03-29 06:00] VITALS: BP 133/79; PULSE 90; RESP 17; O2SAT 98
[2023-03-29 08:00] VITALS: BP 132/70; PULSE 79; RESP 15
[2023-03-29 08:15] LABS: x Labcorp Estim. Avg Glu (eAG) >398 mg/dL (.); x Labcorp Hemoglobin A1c >15.5 % (4.8-5.6)
--- NOTE | 2023-03-29 09:27 | P.DS_ITS ---
History of Present Illness History of Present Illness Date Patient Seen: 03/28/23 Time Patient Seen: 01:03 Chief complaint: ABD Pain Narrative: Rafael Harvey is a 57 years old male with a history of uncontrolled type 2 diabetes, methamphetamine use, heroin addiction, history of UTIs, chronic hep C, BPH with obstruction, chronic urinary retention with severe hydronephrosis, and medication/medical management noncompliance who presented to the ED for general malaise, weakness, polyuria, polydipsia, severe bilateral flank pain.?Having been out of his diabetes medications & not seen a provider for over a year, no longer has a PCP. Patient is alert and orient data x3 but a poor historian. Patient intermittent self cath due to enlarged prostate.?Denies fever, abd pain, vomiting, diarrhea, cough, cold, congestion, chills, chest pain, shortness in breath, headache, changes in vision, difficulty swallowing, speech impairment, numbness, tingling, difficulty with ambulation, recent falls, head injury, LOC, recent exposure to illness, urinary incontinence/retention, dysuria, hematuria, bowel changes, constipation, incontinence, melena, rashes, recent changes to medication, illness, injury, or trauma. At the time of admit patient is alert and oriented x3, hemodynamically stable 97.6, 116/68, 97, 16, 94% on room air. Patient has no white count mild left s hift 7300, sodium 121, corrected sodium 139, chloride 79, BUN 44, creatinine 1.82, GFR 43, glucose 1037, urinalysis is positive for protein, glucose, occult blood, WBC and bacteria culture pending. VBG: PH 7.355 bicarb 32.6, TCO2 34, BE 7. I personally reviewed CXR negative for any acute processes, EKG: NS at a rate of [address] or T-wave changes, tox screen positive for methamphetamines, amphetamines, cocaine. Serum ketones are negative urine ketones negative. patient admitted for HHS/hyperglycemia due to uncontrolled type 2 insulin- dependent diabetes and VIV secondary to acute UTI. Discharge Providers Provider Date of admission: 03/28/23 00:19 Discharge Date: 03/29/23 Primary care physician: Tu Hamilton MD Consults: 03/28/23 00:44 Consult to Dietitian, Adult Routine Comment: Reason For Exam: HHS, uncontrolled DM Bmi 20 03/28/23 00:55 Consult to AUTOMOTIVE GENERATOR REPAIRER - Retirement Consultant Routine Comment: AUTOMOTIVE GENERATOR REPAIRER Consult needed for:: Social Determinants issue 03/28/23 04:14 Consult to Retirement Consultant Routine Comment: Discharge provider: Duane Shah DO Summary Hospital Course Discharge Diagnosis: Hyperglycemia/HHS, acute, secondary to uncontrolled insulin-dependent type 2 diabetes, acute on chronic, present on admission * Initial glucose 1037, urine ketones negative, serum ketones negative, gap 13, no DKA, serum bicarb 29, A&O x3, VBG PH:7.36, serum osmolality pending, not septic * initially on insulin drip which was stopped, transitioned to lantus and BG remained in low 200's * A1c >15.5%, patient previously taking insulin but now isn't * patient ok to dc home on 20 units of lantus daily Acute urinary retention secondary to BPH, UTI ruled out, VIV resolved * Initial: BUN 44, BAG PATCHER 1.82, GFR 43-patient is severely hypovolemic. Cr now normalized. * Severe bilateral CVA tenderness on exam * Renal ultrasound showed mod bilat pelvocaliectasis * Urine culture with no growth * Recieved doses of rocephin then this was stopped * CT abdomen chest pelvis with: Marked distention of the urinary bladder with mild bladder wall thickening and trabeculation compatible with sequelae of mild chronic bladder outlet obstruction. Mild bilateral hydroureteronephrosis likely secondary to bladder distention. No obstructing stones visualized. * Initial bladder scan demonstrated, Ramos placed with 1.5L immediate output of urine * patient ok to dc home with ramos and leg bag and follow-up with urology Methamphetamine, amphetamine, cocaine, use, acute on chronic, present on admission * tox screen positive for methamphetamines, amphetamines, & cocaine.? * Ativan as needed for anxiety/agitation * AUTOMOTIVE GENERATOR REPAIRER consult Malnutrition, mild, acute on chronic, present on admission * Chronic Protein Calorie Malnutrition r/t difficulty managing self care aeb BMI 20.5, polysubstance use, pt with suboptimal DM management out of meds x1y and no PCP f/u, admission with BG >1000. Hospital Course: Admitted for flank pain and found to have BG >1000 and severe bladder outlet obstruction from BPH. Ramos placed with 1.5L out. Insulin drip corrected glucose. No evidence of DKA. Placed on 20u Lantus daily and BG remained in low 200's with this. Patient agreeable to dc home with ramos and leg bag to f/u with urology and script for 20 units of lantus daily. Time Spent with Patient Time spent: Greater than 30 minutes Exam Vital Signs (past 8 hours): - 03/29/23 02:00 03/29/23 02:00 03/29/23 02:00 Temperature Pulse Rate 79 Respiratory Rate 15 Blood Pressure 113/71 Pulse Oximetry 97 Oxygen Delivery Method Room Air Oxygen Flow Rate 0 03/29/23 04:00 03/29/23 04:00 03/29/23 06:00 Temperature 97.0 F L Pulse Rate 67 Respiratory Rate 17 Blood Pressure 130/60 Pulse Oximetry 99 Oxygen Delivery Method Room Air Oxygen Flow Rate 0 03/29/23 06:00 03/29/23 06:00 03/29/23 08:00 Temperature Pulse Rate 90 Respiratory Rate 17 Blood Pressure 133/79 132/70 Pulse Oximetry 98 Oxygen Delivery Method Oxygen Flow Rate 0 03/29/23 08:00 Temperature Pulse Rate 79 Respiratory Rate 15 Blood Pressure Pulse Oximetry Oxygen Delivery Method Oxygen Flow Rate Oxygen Delivery Method Room Air Oxygen Flow Rate 0 Narrative Exam Narrative: General: Patient is a thin frail chronically ill-appearing, male who appears ol paco than stated age, in moderate distress/pain at this time. The patient is orientated x3 and hemodynamically stable at this time. HEENT: Normocephalic, atraumatic, extraocular muscles intact, oral pharynx is clear and mucous membranes are very dry. Neck is supple and symmetric, trachea is midline, no adenopathy, no thyroid enlargement, nontender, no masses palpated. Negative for JVD Chest: Equal chest rise without nasal flaring, retractions, tachypneic or labored breathing. Lungs: Auscultation of all lung archuleta are decreased coarse and occasional expiratory wheezing Cardio: regular rate and rhythm without murmur, rubs, or gallops, no carotid bruit, no cardiac pulsations present. Abdomen: Soft nontender, abdominal midline: large, hard, baseball size mass just below umbilicus, nontender. negative for organomegaly. Bowel sounds are present in all 4 quadrants without guarding or rebound, Positive bilateral CVA tenderness. Bladder scan showed>999cc in bladder Musculoskeletal: Muscle strength and tone are equal, muscle wasting noted greater than expected for age, no deformity, crepitus, effusions, cyanosis, clubbing or edema present. Full range of motion intact radial and pedal pulses are normal. Skin: Warm extremely dry and intact without rashes, ulcerations or petechiae. Neuro: Alert and orientated x3, moves all extremities, sensation to touch intact, no gross deficits noted of cranial nerves. Psych: Patient has a disheveled thin, frail, chronically ill appearance. Objective Labs 03/29/23 04:10 03/29/23 04:10 Labs: Laboratory Results - last 24 hr 03/28/23 03/29/23 03/29/23 07:44 04:10 04:10 WBC 9.0 RBC 4.29 L Hgb 12.3 L Hct 35.5 L MCV 82.7 MCH 28.7 MCHC 34.7 RDW 12.7 Plt Count 348 Neut % (Auto) 54.4 Lymph % (Auto) 34.8 Gentry % (Auto) 9.6 Eos % (Auto) 0.8 L Baso % (Auto) 0.4 Neut # (Auto) 4900 Lymph # (Auto) 3100 Gentry # (Auto) 900 Eos # (Auto) 100 Baso # (Auto) 0 Sodium 138 Potassium 4.3 Chloride 100 Carbon Dioxide 33 H BUN 26 H Creatinine 1.17 Estimated GFR > 60 BUN/Creatinine Ratio 22.2 H Glucose 208 H Hgb A1c (Ref Lab) >15.5 H Estim Average Glucose >398 Calcium 8.7 PFSH Medical History (Updated 03/28/23 @ 03:06 by YESSY Foster) Acute urinary retention Asthma Bipolar 1 disorder Bladder atony Bladder outlet obstruction BPH (benign prostatic hyperplasia) BPH with obstruction/lower urinary tract symptoms Chronic hepatitis C Constipation Depression Diabetes type 2, uncontrolled Heroin addiction History of UTI Hydronephrosis determined by ultrasound Intermittent self-catheterization of bladder Methamphetamine use Methamphetamine use disorder, moderate Urinary retention Surgical History History of circumcision History of liver biopsy History of mandibular surgery (~1983) Family History Other Adopted person Social History marital status: unmarried,single number of children: 2 household members: none occupational status: disabled Smoking Status: Current every day smoker Tobacco: How many years used: 40 alcohol intake: former caffeine: No Discharge Plan Discharge Plan Patient Disposition: Home Provider Discharge Comment: You were admitted with blood sugars of over 1000 and found to have 1.5L of urine in your bladder. Your sugars were corrected with insulin and I've sent you a prescription for lantus to take daily at home. We placed a ramos in your bladder to prevent recurrent backup of urine and you will need to see urology about this shirley. Discharge orders & Medications Prescriptions: New insulin glargine [Lantus Solostar U-100 Insulin] 100 unit/mL (3 mL) Insulin Pen 20 unit SUBCUT DAILY Qty: 15 0RF Continued alfuzosin 10 mg tablet extended release 24 hr 10 mg PO DAILY Qty: 90 3RF Rx Instructions: administer after the same meal each day Follow up/Referrals: Tu Hamilton MD [Primary Care Provider] - 2 Weeks Visit Report/Discharge Packet Stand Alone Forms: Patient Portal/API, Stroke Signs & Symptoms Discharge Data Primary Care Provider: Tu Hamilton Quality VTE Deep Vein Thrombosis/Pulmonary Embolism Present on Admission: No
[2023-03-29] MEDS: INSULIN LISPRO 100 UNIT/ML 3ML VIAL SUBCUT (09:40)
[2023-03-29] MEDS: INSULIN GLARGINE 100 UNIT/ML 3ML PEN 20 UNIT SUBCUT (09:41)
[2023-03-29] MEDS: SODIUM CHLORIDE 0.9% FLUSH 10 ML IV (09:41)
[2023-03-29 10:00] VITALS: BP 101/57; PULSE 86; RESP 8; TEMP 37.2
[2023-03-29] MEDS: SENNOSIDES 8.6 MG TABLET PO (10:13)
[2023-03-29] MEDS: ENOXAPARIN 40 MG/0.4 ML SYRINGE SUBCUT (10:17)
[2023-03-29 11:12] LABS: Osmolality, Serum 327 mOsmol/kg (275-295)
--- NOTE | 2023-03-29 12:21 | PC.NURSE ---
PATIENT STATES HE HAS NO FURTHER QUESTIONS OR CONCERNS AT THIS TIME. PATIENT IS TO HAVE FOLLOW UP SCHEDULED WITH PCP, WELL UROLOGY. PATIENT STATES HE HAS MANAGED A DENG CATHETER AT HOME BEFORE, CHANGED TO LEG BAG PER HIS REQUEST BEFORE DISCHARGE. PATIENT ESCORTED OUT VIA WHEELCHAIR BY [employer] SCREED OPERATOR TO DC TO HOME WITH HIS MOTHER.
== END 2023-03-29 12:05 | disposition home or self-care (01) | DRG 420 ==
LOC: ED 03-28 00:06 → ICU 03-28 02:04 → AC 04-13 12:10 → ICU 04-13 12:10
PROVIDERS: Admitting Provider Nurse Practitioner Family; Emergency Provider Emergency Medicine; PCP Internal Medicine; Referring Provider Emergency Medicine; Visit Provider Nurse Practitioner Family
DX: E11.00 Type 2 diabetes mellitus with hyperosmolarity without nonketotic hyperglycemic-hyperosmolar coma (NKHHC) (principal); N17.9 Acute kidney failure, unspecified; R19.05 Periumbilic swelling, mass or lump; N40.1 Benign prostatic hyperplasia with lower urinary tract symptoms; N13.8 Other obstructive and reflux uropathy; F15.90 Other stimulant use, unspecified, uncomplicated; F14.90 Cocaine use, unspecified, uncomplicated; E44.1 Mild protein-calorie malnutrition; F17.200 Nicotine dependence, unspecified, uncomplicated; Z91.148 Patient's other noncompliance with medication regimen for other reason; Z79.4 Long term (current) use of insulin; Z68.20 Body mass index [BMI] 20.0-20.9, adult; Z20.822 Contact with and (suspected) exposure to COVID-19
CPT/HCPCS: 36415; 70450; 71250; 74176; 76770; 80048; 80053; 80061; 80305; 80329; 81001; 82009; 82150; 82805; 82962; 82977; 83036; 83605; 83690; 83735; 83880; 83930; 84100; 84443; 84484; 85025; 87040; 87086; 87797; 93005; 96365; 96367; 96375; 96376; 99284; 99291; G0378; G0480; J0696; J1170; J1650; J1815; J2060; J2405

== ENCOUNTER 2023-04-30 05:47 | Emergency (ER) | payer OTHER, MEDICAID, SELFPAY ==
[2023-03-28 13:28] VITALS: BMI 20.5
[2023-04-30 05:49] VITALS: BP 170/91; PULSE 86; RESP 16; TEMP 36.6; O2SAT 98; BMI 23.0
--- NOTE | 2023-04-30 05:54 | ED.GENADULT ---
HPI - General Adult General Chief complaint: Urogenital-Male Stated complaint: Plugged catheter Time Seen by Provider: 04/30/23 05:49 Source: patient Mode of arrival: Ambulatory Limitations: no limitations History of Present Illness HPI narrative: 57-year-old male. Has an indwelling Martinez catheter secondary to acute urinary retention secondary to an enlarged prostate. The catheter was placed approximately 1 month ago when he was here in the hospital. At that time he was admitted to the hospital for hyperglycemia. He had been off of medications for quite some time. Prior to that he was doing self-catheterizations because of enlarged prostate. He does have a follow-up with Urology scheduled in the next couple weeks. He states that he last emptied his Martinez catheter leg bag approximately 2 hours prior to arrival here in the ER. He states that it has not drained. He is having quite a bit of lower abdominal discomfort. Related Data Previous Rx's Medication Instructions Recorded alfuzosin 10 mg tablet,extended 10 mg PO DAILY #90 tabs 11/25/20 release 24 hr insulin glargine 100 unit/mL (3 20 unit (0.2 mL) SUBCUT DAILY #15 03/29/23 mL) subcutaneous pen (Lantus mL Solostar U-100 Insulin) pen needle, diabetic 31 gauge x #50 ea 03/31/23/ (Pen Needle) lidocaine 5 % topical gel See Rx Instructions .Route 04/30/23 .COMPLEX #30 grams Allergies Allergy/AdvReac Type Severity Reaction Status Date / Time codeine [CODEINE] AdvReac Intermediate GI Upset Verified 04/01/23 10:34 Review of Systems Gastrointestinal Gastrointestinal: Reports system reviewed and no additional complaints, except as documented Genitourinary Genitourinary: Reports system reviewed and no additional complaints, except as documented Patient History Medical History Acute urinary retention Asthma Bipolar 1 disorder Bladder atony Bladder outlet obstruction BPH (benign prostatic hyperplasia) BPH with obstruction/lower urinary tract symptoms Chronic hepatitis C Constipation Depression Diabetes type 2, uncontrolled Heroin addiction History of UTI Hydronephrosis determined by ultrasound Intermittent self-catheterization of bladder Methamphetamine use Methamphetamine use disorder, moderate Urinary retention Surgical History History of circumcision History of liver biopsy History of mandibular surgery (~1983) Family History Other Adopted person Social History marital status: unmarried,single number of children: 2 household members: none occupational status: disabled Smoking Status: Current every day smoker Tobacco: How many years used: 40 alcohol intake: former caffeine: No Smoking Status: Current every day smoker alcohol intake frequency: 0-2 drinks per day Substance Use Type: crack/cocaine and methamphetamine Exam Initial Vital Signs Initial Vital Signs: Vital Signs Temperature 97.9 F 04/30/23 05:49 Pulse Rate 86 04/30/23 05:49 Respiratory Rate 16 04/30/23 05:49 Blood Pressure 170/91 H 04/30/23 05:49 Pulse Oximetry 98 04/30/23 05:49 Oxygen Delivery Method Room Air 04/30/23 05:49 Const General: cooperative GI Inspection: non-distended Other: Normal external male genitalia. Martinez catheter in place. Skin General: no rashes or lesions noted Course Vital Signs Vital signs: Vital Signs - 8 hr 04/30/23 05:49 Temperature 97.9 F Pulse Rate 86 Respiratory Rate 16 Blood Pressure 170/91 H Pulse Oximetry 98 Oxygen Delivery Method Room Air Medical Decision Making MDM Narrative Medical decision making narrative: After flushing his urinary catheter began draining without problems. There was no blood. He stated that he felt much better. Will discharge patient home to continue with his Martinez care and his scheduled medical appointments. Patient expressed understanding and agreement with plan. Discharge Plan Departure Patient Disposition: Home Clinical Impression: Complication of Martinez catheter Instructions: How to Care for Your Martinez Catheter -- Male Activity Restrictions/Additional Instructions: Continue to take all of your medications as directed and keep all of your scheduled medical appointments. Return to the emergency department for new or worsening symptoms. Prescriptions: New lidocaine 5 % gel See Rx Instructions .ROUTE .COMPLEX Qty: 30 0RF Rx Instructions: Use a small amount on the tip of the penis TID as needed for discomfort. No Action alfuzosin 10 mg tablet extended release 24 hr 10 mg PO DAILY Qty: 90 3RF Rx Instructions: administer after the same meal each day (DME) pen needle, diabetic [Pen Needle] 31 gauge x 1/4 needle See Rx Instructions .Route Qty: 50 0RF Rx Instructions: As directed insulin glargine [Lantus Solostar U-100 Insulin] 100 unit/mL (3 mL) Insulin Pen 20 unit SUBCUT DAILY Qty: 15 0RF Referrals: Tu Hamilton MD [Primary Care Provider] - Stand Alone Forms: Patient Portal/API
== END 2023-04-30 06:51 | disposition home or self-care (01) ==
PROVIDERS: Emergency Provider Emergency Medicine; PCP Internal Medicine
DX: T83.9XXA Unspecified complication of genitourinary prosthetic device, implant and graft, initial encounter (principal)
CPT/HCPCS: 99281

== ENCOUNTER 2023-05-05 00:35 | Emergency (ER) | payer OTHER, MEDICAID, SELFPAY ==
[2023-03-28 13:28] VITALS: BMI 20.5
--- NOTE | 2023-05-05 00:54 | ED.GENADULT ---
HPI - General Adult General Stated complaint: catherter needs flushed Time Seen by Provider: 05/05/23 00:48 Source: patient Mode of arrival: Ambulatory Limitations: no limitations History of Present Illness HPI narrative: 57-year-old male with a longstanding history of urologic issues. He is an indwelling Martinez catheter. Has a follow-up with Urology scheduled in approximately 1 month. He was here a couple days ago secondary to a clogged Martinez catheter that was easily fixed by flushing. He comes in the emergency department again tonight with same symptoms. Related Data Previous Rx's Medication Instructions Recorded alfuzosin 10 mg tablet,extended 10 mg PO DAILY #90 tabs 11/25/20 release 24 hr insulin glargine 100 unit/mL (3 20 unit (0.2 mL) SUBCUT DAILY #15 03/29/23 mL) subcutaneous pen (Lantus mL Solostar U-100 Insulin) pen needle, diabetic 31 gauge x #50 ea 03/31/23/ (Pen Needle) lidocaine 5 % topical gel See Rx Instructions .Route 04/30/23 .COMPLEX #30 grams Allergies Allergy/AdvReac Type Severity Reaction Status Date / Time codeine [CODEINE] AdvReac Intermediate GI Upset Verified 04/01/23 10:34 Review of Systems Constitutional Constitutional: Reports system reviewed and no additional complaints, except as documented Gastrointestinal Gastrointestinal: Reports system reviewed and no additional complaints, except as documented Genitourinary Genitourinary: Reports system reviewed and no additional complaints, except as documented Integumentary/Breasts Skin/Breast: Reports system reviewed and no additional complaints, except as documented Patient History Medical History Acute urinary retention Asthma Bipolar 1 disorder Bladder atony Bladder outlet obstruction BPH (benign prostatic hyperplasia) BPH with obstruction/lower urinary tract symptoms Chronic hepatitis C Constipation Depression Diabetes type 2, uncontrolled Heroin addiction History of UTI Hydronephrosis determined by ultrasound Intermittent self-catheterization of bladder Methamphetamine use Methamphetamine use disorder, moderate Urinary retention Surgical History History of circumcision History of liver biopsy History of mandibular surgery (~1983) Family History Other Adopted person Social History marital status: unmarried,single number of children: 2 household members: none occupational status: disabled Smoking Status: Current every day smoker Tobacco: How many years used: 40 alcohol intake: former caffeine: No Smoking Status: Current every day smoker alcohol intake frequency: 0-2 drinks per day Substance Use Type: crack/cocaine and methamphetamine Exam HENMT Head: normal to inspection GI Inspection: normal to inspection External: normal external exam Medical Decision Making MDM Narrative Medical decision making narrative: His catheter was flushed and is now draining. He is feeling much better. Will discharge patient home. He already has follow-up with Urology. Discharge Plan Departure Patient Disposition: Home Clinical Impression: Complication of Martinez catheter Activity Restrictions/Additional Instructions: Continue to take all of your medications as directed and keep all of your scheduled follow-up specifically with Urology. Return to the emergency department for new or worsening symptoms. Prescriptions: No Action alfuzosin 10 mg tablet extended release 24 hr 10 mg PO DAILY Qty: 90 3RF Rx Instructions: administer after the same meal each day (DME) pen needle, diabetic [Pen Needle] 31 gauge x 1/4 needle See Rx Instructions .Route Qty: 50 0RF Rx Instructions: As directed lidocaine 5 % gel See Rx Instructions .ROUTE .COMPLEX Qty: 30 0RF Rx Instructions: Use a small amount on the tip of the penis TID as needed for discomfort. insulin glargine [Lantus Solostar U-100 Insulin] 100 unit/mL (3 mL) Insulin Pen 20 unit SUBCUT DAILY Qty: 15 0RF Referrals: Tu Hamilton MD [Primary Care Provider] - Stand Alone Forms: Patient Portal/API
[2023-05-05 01:00] VITALS: BP 145/93; PULSE 100; RESP 18; TEMP 36.6; O2SAT 98; BMI 21.7
--- NOTE | 2023-05-05 01:03 | PC.NURSE ---
Pt ramos easily flushed with 50 ml sterile water. Ramos draining w/o problems.
--- NOTE | 2023-05-05 01:06 | PC.NURSE ---
FURNACE CARETAKER note: PT received a Leg bag. saline and syringe to take home
[2023-05-05 01:09] VITALS: BP 145/93; RESP 20; TEMP 36.7
== END 2023-05-05 01:12 | disposition home or self-care (01) ==
PROVIDERS: Emergency Provider Emergency Medicine; PCP Internal Medicine
DX: T83.9XXA Unspecified complication of genitourinary prosthetic device, implant and graft, initial encounter (principal)
CPT/HCPCS: 99281

== ENCOUNTER → 2023-05-18 09:28 | Outpatient (CLI) | payer OTHER, MEDICAID, SELFPAY ==
[2023-03-28 13:28] VITALS: BMI 20.5
[2023-05-18 12:00] LABS: Prostate Specific Antigen 1.13 ng/mL (0.10-4.00)
== END ==
PROVIDERS: PCP Internal Medicine; Referring Provider Urology; Visit Provider Urology
DX: Z12.5 Encounter for screening for malignant neoplasm of prostate (principal)
CPT/HCPCS: 36415; 84153

== ENCOUNTER 2023-07-04 13:10 | Emergency (ER) | payer OTHER, MEDICAID, SELFPAY ==
[2023-03-28 13:28] VITALS: BMI 20.5
[2023-07-04] VITALS (9 sets, daily range): BP systolic 122–147; BP diastolic 80–99; PULSE 90–105; RESP 15–16; TEMP 36.8; O2SAT 94–98; BMI 21.8
--- NOTE | 2023-07-04 13:49 | ED.GENADULT ---
HPI - General Adult General Chief complaint: Urogenital-Male Stated complaint: sent by [facility] unable to void Time Seen by Provider: 07/04/23 13:28 Source: patient Mode of arrival: Wheelchair History of Present Illness HPI narrative: 57-year-old male who was sent over from the walk-in clinic for evaluation of urinary retention inability to void. He has had issues with urinary retention in the past. He is had an extended amount of time with a urinary catheter in place. It was removed approximately 1 month ago. He does occasionally self cath at home. States that self cathing at home is causing him extreme discomfort. He feels like that he is having a urinary tract infection. He is having some lower abdominal pain. No fevers. He states that it does hurt tremendously for him to try to urinate. Related Data Previous Rx's Medication Instructions Recorded alfuzosin 10 mg tablet,extended 10 mg PO DAILY #90 tabs 11/25/20 release 24 hr insulin glargine 100 unit/mL (3 20 unit (0.2 mL) SUBCUT DAILY #15 03/29/23 mL) subcutaneous pen (Lantus mL Solostar U-100 Insulin) pen needle, diabetic 31 gauge x #50 ea 03/31/23/ (Pen Needle) lidocaine 5 % topical gel See Rx Instructions .Route 04/30/23 .COMPLEX #30 grams levofloxacin 750 mg tablet 750 mg PO DAILY 5 days #5 tabs 07/04/23 Allergies Allergy/AdvReac Type Severity Reaction Status Date / Time codeine [CODEINE] AdvReac Intermediate GI Upset Verified 07/04/23 13:22 Review of Systems Constitutional Constitutional: Reports system reviewed and no additional complaints, except as documented Gastrointestinal Gastrointestinal: Reports system reviewed and no additional complaints, except as documented Genitourinary Genitourinary: Reports system reviewed and no additional complaints, except as documented Musculoskeletal Musculoskeletal: Reports system reviewed and no additional complaints, except as documented Integumentary/Breasts Skin/Breast: Reports system reviewed and no additional complaints, except as documented Neurologic Neurologic: Reports system reviewed and no additional complaints, except as documented Hematologic/Lymphatic On Anticoagulants: No Patient History Medical History (Updated 07/04/23 @ 16:03 by Elie Horan DO) Acute urinary retention Asthma Bipolar 1 disorder Bladder atony Bladder outlet obstruction BPH (benign prostatic hyperplasia) BPH with obstruction/lower urinary tract symptoms Chronic hepatitis C Constipation Depression Diabetes type 2, uncontrolled Heroin addiction History of UTI Hydronephrosis determined by ultrasound Intermittent self-catheterization of bladder Methamphetamine use Methamphetamine use disorder, moderate Self-catheterizes urinary bladder Urinary retention Surgical History History of circumcision History of liver biopsy History of mandibular surgery (~1983) Family History Other Adopted person Social History marital status: unmarried,single number of children: 2 household members: none occupational status: disabled Smoking Status: Current every day smoker Tobacco: How many years used: 40 alcohol intake: former caffeine: No Smoking Status: Current every day smoker alcohol intake frequency: 0-2 drinks per day Substance Use Type: crack/cocaine and methamphetamine Exam Initial Vital Signs Initial Vital Signs: Vital Signs Temperature 98.2 F 07/04/23 13:12 Pulse Rate 102 H 07/04/23 13:12 Respiratory Rate 16 07/04/23 13:12 Blood Pressure 131/99 H 07/04/23 13:12 Pulse Oximetry 97 07/04/23 13:12 Oxygen Delivery Method Room Air 07/04/23 13:12 HENMT Head: normal to inspection and normocephalic Resp Effort & Inspection: normal respiratory effort GI Inspection: non-distended Palpation: tender (Lower abdomen) Neuro General: patient alert, patient awake, patient oriented x3 and moves all extremities Extrem General: normal to inspection and capillary refill normal Course Orders Ordered: ED Orders 07/04/23 15:15 Urinalysis and Microscopic Stat Urine Culture Stat Discontinued Medications Lidocaine HCl (Lidocaine 2% (Glydo) 6 Ml Gel) 6 ml TOP NOW ONE Stop: 07/04/23 13:51 Last Admin: 07/04/23 13:58 Dose: 6 ml Documented By: JAMES Lorazepam (Lorazepam 0.5 Mg Tablet) 1 mg PO NOW ONE Stop: 07/04/23 13:51 Last Admin: 07/04/23 13:58 Dose: 1 mg Documented By: JAMES Vital Signs Vital signs: Vital Signs - 8 hr 07/04/23 13:12 07/04/23 13:22 07/04/23 13:30 Temperature 98.2 F Pulse Rate 102 H 105 H Respiratory Rate 16 Blood Pressure 131/99 H 145/83 H Pulse Oximetry 97 98 Oxygen Delivery Method Room Air 07/04/23 13:30 07/04/23 14:00 Temperature Pulse Rate 94 H 92 H Respiratory Rate 15 Blood Pressure Pulse Oximetry 97 96 Oxygen Delivery Method Room Air Medical Decision Making Lab Data Lab results reviewed: Yes I reviewed the patient's lab results. Labs: Lab Results 07/04/23 Range/Units 15:15 Urine Color Yellow Urine Appearance Cloudy Urine pH 7.0 (4.5-8.0) Ur Specific [place] <=1.005 (1.000-1.035) Urine Protein Negative (Negative) Urine Glucose (UA) 3+ H (Negative) g/dL Urine Ketones Negative (NEGATIVE) Urine Occult Blood 2+ H (Negative) Urine Nitrate Negative (Negative) Urine Bilirubin Negative (NEGATIVE) Urine Urobilinogen 0.2 (0.2) E.U./dL Ur Leukocyte Esterase 1+ H (NEGATIVE) Urine RBC 1-5/hpf (0-5/HPF) Urine WBC 30-100/hpf H (0-5/HPF) Ur Squamous Epith Cells None seen (0-5/HPF) Urine Bacteria Moderate (10-30) H (None) Ur Culture Indicated? Specimen cultured MDM Narrative Medical decision making narrative: A Martinez catheter was placed. I do feel that given the discovered that he is having with cathing himself at home that leaving the Martinez catheter in place would be most beneficial to him. His urinalysis today does show signs of a urinary tract infection. A review of his medical record shows that a couple years ago he did have a E coli infection that was resistant to Bactrim but otherwise pansensitive. We will treat him based on this. His culture was pending today. Will discharge patient home with follow-up with his urologist. Discharge Plan Departure Patient Disposition: Home Clinical Impression: Acute urinary retention, Acute UTI Instructions: How to Care for Your Martinez Catheter -- Male, DI for Urinary Tract Infection (UTI) Activity Restrictions/Additional Instructions: A prescription for antibiotics was sent to [facility]. Please start taking them as directed. I recommend that tomorrow you contact your urologist for a follow-up. Return to the emergency department for new symptoms. Prescriptions: New levofloxacin 750 mg tablet 750 mg PO DAILY 5 Days Qty: 5 0RF No Action alfuzosin 10 mg tablet extended release 24 hr 10 mg PO DAILY Qty: 90 3RF Rx Instructions: administer after the same meal each day (DME) pen needle, diabetic [Pen Needle] 31 gauge x 1/4 needle See Rx Instructions .Route Qty: 50 0RF Rx Instructions: As directed lidocaine 5 % gel See Rx Instructions .ROUTE .COMPLEX Qty: 30 0RF Rx Instructions: Use a small amount on the tip of the penis TID as needed for discomfort. insulin glargine [Lantus Solostar U-100 Insulin] 100 unit/mL (3 mL) Insulin Pen 20 unit SUBCUT DAILY Qty: 15 0RF Referrals: Miscellaneous,Doctor, MD [Primary Care Provider] - Stand Alone Forms: Patient Portal/API
[2023-07-04] MEDS: LORazepam 0.5 MG TABLET 1 MG PO (13:58)
[2023-07-04] MEDS: LIDOCAINE 2% (GLYDO) 6 ML GEL TOP (13:58)
--- NOTE | 2023-07-04 15:23 | PC.NURSE ---
Pt highly anxious w/ urinary catheterization r/t urinary retention. Ativan po given. Pt then had increased anxiety but was able to self cath successfully w/ 14 ft catheter. 10 ml balloon inflated. Urine draining.
--- NOTE | 2023-07-04 15:32 | PC.NURSE ---
Patient has had an indwelling catheter for 2 months, and since mid may has had it removed and is self cathing at home. Patient states i have an infection inside and is unable to self cath because of pain and the infection. Pt tearful, tachypneic. Encouraged him to take slow deep breathes. Catheter placed successfully by patient with assistance from nurses in setting up patient. Pt refused nursing staff to insert catheter. Catheter draining, no dependant loops.
[2023-07-04 15:36] LABS: Bilirubin Urine UA NEGATIVE (NEGATIVE); Color Urine UA YELLOW; Glucose Urine UA 3+ g/dL (Negative); Ketones Urine UA NEGATIVE (NEGATIVE); Leukocyte Esterase Urine UA 1+ (NEGATIVE); Nitrite Urine UA NEGATIVE (Negative); Occult Blood Urine UA 2+ (Negative); Protein Urine UA NEGATIVE (Negative); Specific Gravity Urine UA <=1.005 (1.000-1.035); Urobilinogen Urine UA 0.2 E.U./dL (0.2)
[2023-07-04 15:41] LABS: Appearance Urine UA CLOUDY
[2023-07-04 15:51] LABS: Bacteria Urine Moderate (10-30); RBC Urine 1-5/HPF (0-5/HPF); WBC Urine 30-100/HPF (0-5/HPF)
[2023-07-04 15:52] LABS: Culture Indicated Urine Specimen Cultured; Squamous Epithelial Cell Urine None Seen (0-5/HPF)
--- NOTE | 2023-07-04 16:54 | PC.NURSE ---
Patient's mother came to pick him up. He was assisted by wheelchair into the car.
== END 2023-07-04 16:40 | disposition home or self-care (01) ==
PROVIDERS: Emergency Provider Emergency Medicine
DX: R33.8 Other retention of urine (principal); N39.0 Urinary tract infection, site not specified
CPT/HCPCS: 51798; 81001; 87086; 99283; 99284

== ENCOUNTER 2023-07-22 22:24 | Observation (INO) | payer OTHER, MEDICAID, SELFPAY ==
[2023-03-28 13:28] VITALS: BMI 20.5
[2023-07-22 22:24] VITALS: BP 159/97; PULSE 102; RESP 20; TEMP 36.9; O2SAT 100; BMI 19.8
[2023-07-22 22:57] LABS: Appearance Urine UA CLOUDY; Bilirubin Urine UA NEGATIVE (NEGATIVE); Color Urine UA YELLOW; Glucose Urine UA 3+ g/dL (Negative); Ketones Urine UA NEGATIVE (NEGATIVE); Leukocyte Esterase Urine UA 1+ (NEGATIVE); Nitrite Urine UA POSITIVE (Negative); Occult Blood Urine UA 2+ (Negative); Protein Urine UA 2+ (Negative); Urobilinogen Urine UA 0.2 E.U./dL (0.2)
--- NOTE | 2023-07-22 23:19 | DI.CT.S_ITS ---
PROCEDURE: CT KIDNEY URETER BLADDER (KUB) INDICATIONS: Lower abdominal pain, catheter pain, hematuria. TECHNIQUE: Axial sections were acquired from the lung bases to the pubic symphysis. Coronal and sagittal reformats were performed. For radiation dose reduction, the following was used: automated exposure control, adjustment of mA and/or kV according to patient size. COMPARISON: [facility], CT, CT CHEST ABD PEL WO CON, 03/28/2023, 0:59. FINDINGS: Image quality: Good Lower chest: Lung bases are unremarkable. Normal heart size. Solid organs: The liver is unremarkable. Gallbladder is unremarkable. Mild pancreatic parenchymal atrophy. No pathologic biliary ductal dilation or pancreatic ductal dilation. No splenomegaly. No adrenal nodules. [id number] renal edema and perinephric fat stranding. No obstructing stones are identified. However there is moderate bilateral hydronephrosis. A small calcification again seen adjacent to the left distal ureter, probably a phlebolith. Vessels and lymph nodes: No pathologic lymphadenopathy by size criteria. No abdominal aortic aneurysm or pathologic lymph nodes by size criteria. Bowel and peritoneum: Mildly distended stomach. No small bowel obstruction. No pathologic intra-abdominal abscess or ascites. Moderate fecal loading. Body wall: Unremarkable Pelvis: Bladder wall thickening is present. A Martinez is in place. Bladder is distended. There is layering hyperdensity intra bladder gas. The prostate is not well seen on this study. Bones: No acute or suspicious osseous finding. There are degenerative changes. IMPRESSION: Moderate hydronephrosis and renal edema. No obstructing stone identified. These findings are persistent from [facility]. The bladder is distended, with layering hyperdensity, mild wall thickening, with a Martinez in place. Correlate with urinalysis for infection and Martinez function. The layering hyperdensity likely represents clot. Consider urologic follow-up and cystoscopy as well. Moderate fecal loading. No small bowel obstruction. Other findings as above. Dictated by: Wayne Huffman M.D. on 07/23/2023 at 0:18 Approved by: Wayne Huffman M.D. on 07/23/2023 at 0:26
[2023-07-22 23:27] LABS: RBC Urine 1-5/HPF (0-5/HPF); WBC Urine >100/HPF (0-5/HPF)
[2023-07-22 23:28] LABS: Bacteria Urine Many (>30); Culture Indicated Urine Specimen Cultured; Squamous Epithelial Cell Urine None Seen (0-5/HPF)
[2023-07-22 23:39] VITALS: TEMP 36.9
[2023-07-22] MEDS: KETOROLAC 30 MG/ML VIAL 15 MG IV (23:39)
[2023-07-23] VITALS (24 sets, daily range): BP systolic 100–142; BP diastolic 58–94; PULSE 80–124; RESP 12–34; TEMP 36.3–38.6; O2SAT 93–100; BMI 20.7
--- NOTE | 2023-07-23 00:02 | ED_ITS ---
HPI - Male Genitourinary General Chief complaint: Urogenital-Male Stated complaint: catheter pain/lower abd pain Time Seen by Provider: 07/22/23 23:19 Source: patient and EMS Mode of arrival: EMS History of Present Illness HPI Narrative: Patient is a 57-year-old male history of diabetes methamphetamine abuse noncompliant with medication, chronic indwelling Martinez catheter presenting today presenting today with increasing abdominal pain. This Martinez catheter appears to be working but he is having pretty significant pain. No significant hematuria. He was last seen on 07/04/2023 where he was diagnosed with a UTI he was started on Levaquin, at that time he had urinary retention as well it does not suddenly Martinez catheter has been changed since then. Urinalysis from the does not show any growth Related Data Previous Rx's Medication Instructions Recorded alfuzosin 10 mg tablet,extended 10 mg PO DAILY #90 tabs 11/25/20 release 24 hr insulin glargine 100 unit/mL (3 20 unit (0.2 mL) SUBCUT DAILY #15 03/29/23 mL) subcutaneous pen (Lantus mL Solostar U-100 Insulin) pen needle, diabetic 31 gauge x #50 ea 03/31/23 1/4 (Pen Needle) lidocaine 5 % topical gel See Rx Instructions .Route 04/30/23 .COMPLEX #30 grams Allergies Allergy/AdvReac Type Severity Reaction Status Date / Time codeine [CODEINE] AdvReac Intermediate GI Upset Verified 07/04/23 13:22 Review of Systems Review of Systems ROS Unobtainable: All systems reviewed & are unremarkable except as noted in HPI and below Patient History Medical History (Updated 07/23/23 @ 04:41 by Humberto Talley MD) CKD (chronic kidney disease) Polysubstance abuse Self-catheterizes urinary bladder Methamphetamine use disorder, 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 Intermittent self-catheterization of bladder Hydronephrosis determined by ultrasound History of UTI Urinary retention Depression Asthma Bladder outlet obstruction Bladder atony Heroin addiction Bipolar 1 disorder Chronic hepatitis C Methamphetamine use Diabetes type 2, uncontrolled Acute urinary retention Constipation BPH (benign prostatic hyperplasia) Surgical History History of circumcision History of liver biopsy History of mandibular surgery (~1983) Family History Other Adopted person Social History marital status: unmarried,single number of children: 2 household members: none occupational status: disabled Smoking Status: Current every day smoker Tobacco: How many years used: 40 alcohol intake: former caffeine: No Smoking Status: Current every day smoker alcohol intake frequency: 0-2 drinks per day Substance Use Type: methamphetamine Exam Initial Vital Signs Initial Vital Signs: Vital Signs Temperature 98.4 F 07/22/23 22:24 Pulse Rate 102 H 07/22/23 22:24 Respiratory Rate 20 07/22/23 22:24 Blood Pressure 159/97 H 07/22/23 22:24 Pulse Oximetry 100 07/22/23 22:24 Oxygen Delivery Method Room Air 07/22/23 22:24 GENERAL: Thin disheveled older than appearing stated age HEENT: Head atraumatic,EOMI, pupils reactive, face symmetric, moist mucous membranes CARDIOVASCULAR: Regular rate and rhythm without murmurs, rubs or gallops. RESPIRATORY: Breath sounds equal bilaterally, no wheezes rales or rhonchi. ABDOMEN: Soft, suprapubic tenderness no guarding no rebound no flank pain no distention : Martinez catheter in place clear cloudy urine EXTREMITIES: Normal range of motion, no clubbing or edema. Neurovascularly intact NEUROLOGICAL: Alert and oriented x4. SKIN: Warm, dry, no laceration, no petechiae, no rashes or lesions. Course Orders Ordered: ED Orders 07/22/23 22:33 UA dip and micro [Urinalysis and Microscopic] Stat Urine Culture Stat 07/22/23 23:19 CT kidney ureter bladder (KUB) Stat CBC Auto Diff [Complete Blood Count AUTO DIFF] Stat CMP [Comprehensive Metabolic Panel] Stat 07/23/23 00:24 Lactate (Lactic Acid) Stat 07/23/23 00:35 VBG [Venous Blood Gas] Stat 07/23/23 01:25 Blood Culture Stat 07/23/23 05:00 Urine Drug Screen, Rapid Stat Acetaminophen (Acetaminophen 325 Mg Tablet) 975 mg PO Q6H PRN PRN Reason: Fever/Mild Pain (1-3) Al Hydrox/Mg Hydrox/Simethicone (Mag Hydrox/Alum/Simeth 30 Ml Udc) 30 ml PO Q6HR PRN PRN Reason: Dyspepsia Enoxaparin Sodium (Enoxaparin 30 Mg/0.3 Ml Syringe) 30 mg SUBCUT DAILY [facility] Hydromorphone HCl (Hydromorphone 0.5 Mg Inj) 0.5 mg IV Q2H PRN PRN Reason: severe pain Dextrose (D10w) 100 mls @ 1,200 mls/hr IV PRN PRN PRN Reason: Hypoglycemia Lactated Ringer's (Lactated Ringers) 1,000 mls @ 84 mls/hr IV CONT DEE DEE Last Admin: 07/23/23 05:40 Dose: 84 mls/hr Documented By: Insulin Glargine (Insulin Glargine 100 Unit/Ml 3ml Pen) 20 unit SUBCUT DAILY [facility] Insulin Human Lispro (Insulin Lispro 100 Unit/Ml 3ml Vial) 0 unit SUBCUT ACHS DEE DEE; Protocol Lorazepam (Lorazepam 2 Mg/Ml Inj) 0.5 mg IV Q2HR PRN PRN Reason: Anxiety Naloxone HCl (Naloxone 0.4 Mg/Ml Vial) 0.2 mg IV Q2MIN PRN PRN Reason: Opiate Reversal Non-Formulary Medication (Alfuzosin) 10 mg PO DAILY [facility] Ondansetron HCl (Ondansetron 4 Mg Odt) 4 mg PO Q4HR PRN PRN Reason: nausea Ondansetron HCl (Ondansetron 4 Mg/2 Ml Inj) 4 mg IV Q4HR PRN PRN Reason: nausea Oxycodone HCl (Oxycodone Ir 5 Mg Tablet) 5 mg PO Q3H PRN PRN Reason: Pain, Moderate (4-6) Oxycodone HCl (Oxycodone Ir 10 Mg Tablet) 10 mg PO Q3H PRN PRN Reason: Pain, Severe (7-10) Discontinued Medications Acetaminophen (Acetaminophen 325 Mg Tablet) 975 mg PO NOW ONE Stop: 07/23/23 00:11 Last Admin: 07/23/23 01:09 Dose: 975 mg Documented By: JANETT Hydromorphone HCl (Hydromorphone 0.5 Mg Inj) 0.5 mg IV NOW ONE Stop: 07/23/23 01:22 Last Admin: 07/23/23 01:37 Dose: 0.5 mg Documented By: JANETT Sodium Chloride (Normal Saline 0.9%) 1,000 mls @ 1,000 mls/hr IV BOLUS ONE Stop: 07/23/23 01:07 Last Infusion: 07/23/23 01:47 Dose: Infused Documented By: Admin: 07/23/23 00:26 Dose: 1,000 mls/hr Documented By: JANETT Ceftriaxone Sodium 2,000 mg/ (Sodium Chloride) 100 mls @ 200 mls/hr IV NOW ONE Stop: 07/23/23 00:52 Last Infusion: 07/23/23 02:11 Dose: Infused Documented By: Admin: 07/23/23 01:10 Dose: 200 mls/hr Documented By: JANETT Sodium Chloride (Normal Saline 0.9%) 2,041.17 mls @ 680.39 mls/hr 30 ml/kg infuse over 3 hr (2041.17 ml) IV NOW ONE Stop: 07/23/23 05:19 Last Admin: 07/23/23 04:00 Dose: 680.39 mls/hr Documented By: JANETT Ketorolac Tromethamine (Ketorolac 30 Mg/Ml Vial) 15 mg IV NOW ONE Stop: 07/22/23 23:20 Last Admin: 07/22/23 23:39 Dose: 15 mg Documented By: JANETT Ondansetron HCl (Ondansetron 4 Mg/2 Ml Inj) 4 mg IV Q4HR [facility] Ondansetron HCl (Ondansetron 4 Mg Odt) 4 mg PO Q4HR [facility] Vital Signs Vital signs: Vital Signs - 8 hr 07/22/23 22:24 07/22/23 23:39 07/23/23 00:32 Temperature 98.4 F 98.4 F Pulse Rate 102 H Respiratory Rate 20 Blood Pressure 159/97 H 133/61 Pulse Oximetry 100 Oxygen Delivery Method Room Air 07/23/23 00:33 07/23/23 00:33 07/23/23 00:56 Temperature 100.9 F H Pulse Rate 120 H Respiratory Rate 24 Blood Pressure 131/62 Pulse Oximetry 93 Oxygen Delivery Method Room Air 07/23/23 01:00 07/23/23 01:00 07/23/23 01:09 Temperature 100.9 F H Pulse Rate 124 H Respiratory Rate 34 H Blood Pressure 134/71 Pulse Oximetry Oxygen Delivery Method 07/23/23 01:30 07/23/23 01:36 07/23/23 01:36 Temperature Pulse Rate 118 H 124 H Respiratory Rate 21 18 Blood Pressure 115/94 H Pulse Oximetry 99 98 Oxygen Delivery Method 07/23/23 02:00 07/23/23 02:00 07/23/23 02:30 Temperature Pulse Rate 121 H 121 H Respiratory Rate 19 Blood Pressure 131/77 Pulse Oximetry 93 94 Oxygen Delivery Method Room Air 07/23/23 02:30 07/23/23 03:00 07/23/23 03:00 Temperature Pulse Rate 119 H Respiratory Rate Blood Pressure 131/73 121/58 L Pulse Oximetry 95 Oxygen Delivery Method MDM - Male Genitourinary Lab Data 07/23/23 00:24 07/23/23 00:24 Labs: Lab Results 07/22/23 07/23/23 07/23/23 Range/Units 22:33 00:24 00:35 WBC 15.0 H (4.5-11.0) X10^3/uL RBC 4.46 L (4.5-5.9) X10^6/uL Hgb 13.0 L (13.5-17.5) g/dL Hct 38.1 L (41-53) % MCV 85.3 (80-100) fL MCH 29.1 (26-34) PG MCHC 34.0 (30-36) % RDW 13.0 (11.6-14.8) % Plt Count 400 (150-400) X10^3/uL Neut % (Auto) 91.2 H (50-75) % Lymph % (Auto) 4.3 L (25-40) % [place] % (Auto) 3.7 (3-14) % Eos % (Auto) 0.2 L (2-4) % Baso % (Auto) 0.6 (0-2) % Neut # (Auto) 64590 H (2453-0316) /uL Lymph # (Auto) 600 L (7373-7317) /uL [place] # (Auto) 500 (0-900) /uL Eos # (Auto) 0 (0-450) /uL Baso # (Auto) 100 (0-100) /uL VBG pH 7.60 H (7.33-7.43) VBG pCO2 27.3 L (45-50) mmHg VBG pO2 61 H (35-45) mmHg VBG HCO3 27 (24-28) mmol/L VBG Total CO2 28 (24-29) mmol/L VBG O2 Saturation 95 H (70-75) % VBG Base Excess 5.0 H (0-4) mmol/L FiO2 21 Sodium 128 L (137-145) mmol/L Potassium 4.5 (3.4-5.1) mmol/L Chloride 91 L (98-107) mmol/L Carbon Dioxide 28 (22-32) mmol/L BUN 24 H (9-20) mg/dL Creatinine 1.38 H (0.66-1.25) mg/dL Estimated GFR > 60 (>60) mL/min BUN/Creatinine Ratio 17.4 (6-22) Glucose 613 H* (70-100) mg/dL Lactate 1.7 (0.7-2.1) mmol/L Calcium 9.0 (8.4-10.2) mg/dL Total Bilirubin 0.6 (0.2-1.3) mg/dL AST 17 (17-59) IU/L ALT 15 (<50) IU/L Alkaline Phosphatase 111 (38-126) U/L Total Protein 7.2 (6.3-8.2) g/dL Albumin 3.6 (3.5-5.0) g/dL Globulin 3.6 (1.7-4.1) g/dL Albumin/Globulin Ratio 1.0 (1.0-2.8) Urine Color Yellow Urine Appearance Cloudy Urine pH 6.0 (4.5-8.0) Ur Specific [place] 1.010 (1.000-1.035) Urine Protein 2+ H (Negative) Urine Glucose (UA) 3+ H (Negative) g/dL Urine Ketones Negative (NEGATIVE) Urine Occult Blood 2+ H (Negative) Urine Nitrate Positive H (Negative) Urine Bilirubin Negative (NEGATIVE) Urine Urobilinogen 0.2 (0.2) E.U./dL Ur Leukocyte Esterase 1+ H (NEGATIVE) Urine RBC 1-5/hpf (0-5/HPF) Urine WBC >100/hpf H (0-5/HPF) Ur Squamous Epith Cells None seen (0-5/HPF) Urine Bacteria Many (>30) H (None) Urine Yeast 5-10/hpf H (None) Ur Culture Indicated? Specimen cultured Urine Dip Bedside Urine Glucose 1000 mg/dl Bedside Urine Bilirubin - Negative Bedside Urine Ketone - Negative Urine Specific [place] 1.015 Bedside Urine Occult Blood + Bedside Urine pH 6.0 Bedside Urine Protein + 30 Bedside Urine Urobilinogen - Negative Bedside Urine Nitrite + Positive Bedside Urine Leukocytes - Negative Esterase Imaging Data CT scan - abdomen/pelvis: Radiologist's Impression: PROCEDURE: CT KIDNEY URETER BLADDER (KUB) INDICATIONS: Lower abdominal pain, catheter pain, hematuria. TECHNIQUE: Axial sections were acquired from the lung bases to the pubic symphysis. Coronal and sagittal reformats were performed. For radiation dose reduction, the following was used: automated exposure control, adjustment of mA and/or kV according to patient size. COMPARISON: [facility], CT, CT CHEST ABD PEL WO CON, 03/28/2023, 0:59. FINDINGS: Image quality: Good Lower chest: Lung bases are unremarkable. Normal heart size. Solid organs: The liver is unremarkable. Gallbladder is unremarkable. Mild pancreatic parenchymal atrophy. No pathologic biliary ductal dilation or pancreatic ductal dilation. No splenomegaly. No adrenal nodules. Tniw-um-kivjskwm renal edema and perinephric fat stranding. No obstructing stones are identified. However there is moderate bilateral hydronephrosis. A small calcification again seen adjacent to the left distal ureter, probably a phlebolith. Vessels and lymph nodes: No pathologic lymphadenopathy by size criteria. No abdominal aortic aneurysm or pathologic lymph nodes by size criteria. Bowel and peritoneum: Mildly distended stomach. No small bowel obstruction. No pathologic intra-abdominal abscess or ascites. Moderate fecal loading. Body wall: Unremarkable Pelvis: Bladder wall thickening is present. A Martinez is in place. Bladder is distended. There is layering hyperdensity intra bladder gas. The prostate is not well seen on this study. Bones: No acute or suspicious osseous finding. There are degenerative changes. IMPRESSION: Moderate hydronephrosis and renal edema. No obstructing stone identified. These findings are persistent from March imaging. The bladder is distended, with layering hyperdensity, mild wall thickening, with a Martinez in place. Correlate with urinalysis for infection and Martinez function. The layering hyperdensity likely represents clot. Consider urologic follow-up and cystoscopy as well. Moderate fecal loading. No small bowel obstruction. Other findings as above. Dictated by: Wayne Huffman M.D. on 07/23/2023 at 0:18 Approved by: Wayne Huffman M.D. on 07/23/2023 at 0:26 ECG Data Interpretation: Sinus tachycardia rate [address] changes no T-wave inversions MDM Narrative Medical decision making narrative: Patient is a 57-year-old male history of noncompliant insulin-dependent diabetes methamphetamine abuse chronic indwelling Martinez catheter for urinary retention presenting today with severe abdominal pain. He is found to have leukocytosis develops a fever of 100.9 in his found to have a UTI with nitrates leuks and blood. CT shows moderate hydronephrosis renal edema no obstructing ureteral stone findings are consistent with previous CT in March. He is given IV fluids and Dilaudid for pain. He is persistently tachycardic heart rate in the 20s blood pressure remains stable. Difficult to say heart rate is secondary to methamphetamine versus sepsis and infection. He would resting comfortably after the Dilaudid seems much more under control Dr. Talley accepts patient. Discharge Plan Departure Patient Disposition: Admitted As Inpatient Clinical Impression: Acute UTI, Sepsis Admit Date/Time: 07/23/23 03:21 Admit Provider: Humberto Talley
[2023-07-23] MEDS: SODIUM CHLORIDE 0.9% 1,000 ML 1000 ML IV ×2 (00:26→08:37)
--- NOTE | 2023-07-23 00:38 | PC.NURSE ---
POC blood glucose checked at time of new IV access. Bedside check resulted at >500, MD aware. See new orders.
[2023-07-23 00:40] LABS: Add Manual Diff / Slide Review NO; Basophils Absolute Auto 100 /uL (0-100); Basophils Percent Auto 0.6 % (0-2); Eosinophils Absolute Auto 0 /uL (0-450); Eosinophils Percent Auto 0.2 % (2-4); Hematocrit 38.1 % (41-53); Lymphocytes Absolute Auto 600 /uL (1100-4500); Lymphocytes Percent Auto 4.3 % (25-40); Mean Corpuscular Hemoglobin 29.1 PG (26-34); Mean Corpuscular Volume 85.3 fL (80-100); Monocytes Absolute Auto 500 /uL (0-900); Monocytes Percent Auto 3.7 % (3-14); Neutrophils Absolute Auto 13700 /uL (1500-7000); Neutrophils Percent Auto 91.2 % (50-75); Platelet Count 400 X10^3/uL (150-400); Red Blood Cell Count 4.46 X10^6/uL (4.5-5.9)
[2023-07-23 00:45] LABS: Alanine Aminotransferase 15 IU/L (<50); Albumin 3.6 g/dL (3.5-5.0); Alkaline Phosphatase 111 U/L (38-126); Aspartate Aminotransferase 17 IU/L (17-59); BUN Creatinine Ratio 17.4 (6-22); Bilirubin Total 0.6 mg/dL (0.2-1.3); Blood Urea Nitrogen 24 mg/dL (9-20); Carbon Dioxide 28 mmol/L (22-32); Chloride 91 mmol/L (98-107); Estimated Glomerular Filt Rate > 60 mL/min (>60); Globulin 3.6 g/dL (1.7-4.1); HEMOLYSIS < 15 (0-50); Potassium 4.5 mmol/L (3.4-5.1); Sodium 128 mmol/L (137-145); Total Protein 7.2 g/dL (6.3-8.2)
[2023-07-23 00:54] LABS: Glucose 613 mg/dL (70-100)
[2023-07-23 00:59] LABS: PCO2 VBG 27.3 mmHg (45-50)
[2023-07-23 01:00] LABS: Fractionated Inspired Oxygen 21; HCO3 VBG 27 mmol/L (24-28); Oxygen Saturation VBG 95 % (70-75); PO2 VBG 61 mmHg (35-45); Total CO2 VBG 28 mmol/L (24-29)
[2023-07-23] MEDS: ACETAMINOPHEN 325 MG TABLET 975 MG PO ×3 (01:09→23:27)
[2023-07-23] MEDS: cefTRIAXone 2,000 MG in SODIUM CHLORIDE 0.9% 100 ML 200 MG IV (01:10)
[2023-07-23] MEDS: HYDROMORPHONE 0.5 MG INJ IV ×5 (01:37→19:32)
[2023-07-23 02:36] LABS: Lactate (Lactic Acid) 1.7 mmol/L (0.7-2.1)
[2023-07-23] MEDS: SODIUM CHLORIDE 0.9% 2,041.17 ML 680.39 ML IV (04:00)
--- NOTE | 2023-07-23 04:30 | P.HP_ITS ---
History of Present Illness History of Present Illness Date Patient Seen: 07/22/23 Chief complaint: catheter pain/lower abd pain Narrative: 57 y/o diabetic, with PMH of polysubstance abuse, non-compliance with medications, chronic urinary retention and since last ED visit a month ago - indwelling Martinez, presents with sepsis, UTI and abdominal pain. He finished a course of Levaquin a month ago.Started on IVFs and Rocephin in ED. Admitted with sepsis and CAUTI. [facility] Medical History (Updated 07/23/23 @ 04:41 by Humberto Talley MD) CKD (chronic kidney disease) Polysubstance abuse Self-catheterizes urinary bladder Methamphetamine use disorder, 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 Intermittent self-catheterization of bladder Hydronephrosis determined by ultrasound History of UTI Urinary retention Depression Asthma Bladder outlet obstruction Bladder atony Heroin addiction Bipolar 1 disorder Chronic hepatitis C Methamphetamine use Diabetes type 2, uncontrolled Acute urinary retention Constipation BPH (benign prostatic hyperplasia) Surgical History History of circumcision History of liver biopsy History of mandibular surgery (~1983) Family History Other Adopted person Social History marital status: unmarried,single number of children: 2 household members: none occupational status: disabled Smoking Status: Current every day smoker Tobacco: How many years used: 40 alcohol intake: former caffeine: No Meds Home Medications and Allergies Home Medications Medication Instructions Recorded Confirmed Type alfuzosin 10 mg tablet,extended 10 mg PO DAILY #90 tabs 11/25/20 07/23/23 Rx release 24 hr insulin glargine 100 unit/mL (3 20 unit (0.2 mL) SUBCUT DAILY #15 03/29/23 07/23/23 Rx mL) subcutaneous pen (Lantus mL Solostar U-100 Insulin) pen needle, diabetic 31 gauge x #50 ea 03/31/23 07/23/23 Rx 1/4 (Pen Needle) lidocaine 5 % topical gel See Rx Instructions .Route 04/30/23 07/23/23 Rx .COMPLEX #30 grams Allergies Allergy/AdvReac Type Severity Reaction Status Date / Time codeine [CODEINE] AdvReac Intermediate GI Upset Verified 07/04/23 13:22 Review of Systems Review of Systems Narrative: Unobtainable due to confusion Gastrointestinal Comments: abdominal pain Exam Vital Signs (past 8 hours): - 07/22/23 22:24 07/22/23 23:39 07/23/23 00:32 Temperature 98.4 F 98.4 F Pulse Rate 102 H Respiratory Rate 20 Blood Pressure 159/97 H 133/61 Pulse Oximetry 100 Oxygen Delivery Method Room Air 07/23/23 00:33 07/23/23 00:33 07/23/23 00:56 Temperature 100.9 F H Pulse Rate 120 H Respiratory Rate 24 Blood Pressure 131/62 Pulse Oximetry 93 Oxygen Delivery Method Room Air 07/23/23 01:00 07/23/23 01:00 07/23/23 01:09 Temperature 100.9 F H Pulse Rate 124 H Respiratory Rate 34 H Blood Pressure 134/71 Pulse Oximetry Oxygen Delivery Method 07/23/23 01:30 07/23/23 01:36 07/23/23 01:36 Temperature Pulse Rate 118 H 124 H Respiratory Rate 21 18 Blood Pressure 115/94 H Pulse Oximetry 99 98 Oxygen Delivery Method 07/23/23 02:00 07/23/23 02:00 07/23/23 02:30 Temperature Pulse Rate 121 H 121 H Respiratory Rate 19 Blood Pressure 131/77 Pulse Oximetry 93 94 Oxygen Delivery Method Room Air 07/23/23 02:30 07/23/23 03:00 07/23/23 03:00 Temperature Pulse Rate 119 H Respiratory Rate Blood Pressure 131/73 121/58 L Pulse Oximetry 95 Oxygen Delivery Method 07/23/23 03:30 07/23/23 03:30 07/23/23 04:00 Temperature 99.3 F Pulse Rate 119 H 107 H Respiratory Rate 12 12 Blood Pressure 100/59 L Pulse Oximetry 97 96 Oxygen Delivery Method Room Air 07/23/23 04:00 Temperature Pulse Rate Respiratory Rate Blood Pressure 138/82 Pulse Oximetry Oxygen Delivery Method Oxygen Delivery Method Room Air Const Other: Appears confused, complains on abdominal pain Resp Other: CTA Cardio Other: Tachycardic, regular Neuro Other: w/o obvious deficits Extrem Other: w/o swelling Psych Other: encephalopathic Objective Labs 07/23/23 00:24 07/23/23 05:53 Labs: Laboratory Results - last 24 hr 07/22/23 07/23/23 07/23/23 22:33 00:24 00:35 WBC 15.0 H RBC 4.46 L Hgb 13.0 L Hct 38.1 L MCV 85.3 MCH 29.1 MCHC 34.0 RDW 13.0 Plt Count 400 Neut % (Auto) 91.2 H Lymph % (Auto) 4.3 L [place] % (Auto) 3.7 Eos % (Auto) 0.2 L Baso % (Auto) 0.6 Neut # (Auto) 39801 H Lymph # (Auto) 600 L [place] # (Auto) 500 Eos # (Auto) 0 Baso # (Auto) 100 VBG pH 7.60 H VBG pCO2 27.3 L VBG pO2 61 H VBG HCO3 27 VBG Total CO2 28 VBG O2 Saturation 95 H VBG Base Excess 5.0 H FiO2 21 Sodium 128 L Potassium 4.5 Chloride 91 L Carbon Dioxide 28 BUN 24 H Creatinine 1.38 H Estimated GFR > 60 BUN/Creatinine Ratio 17.4 Glucose 613 H* Lactate 1.7 Calcium 9.0 Total Bilirubin 0.6 AST 17 ALT 15 Alkaline Phosphatase 111 Total Protein 7.2 Albumin 3.6 Globulin 3.6 Albumin/Globulin Ratio 1.0 Urine Color Yellow Urine Appearance Cloudy Urine pH 6.0 Ur Specific [place] 1.010 Urine Protein 2+ H Urine Glucose (UA) 3+ H Urine Ketones Negative Urine Occult Blood 2+ H Urine Nitrate Positive H Urine Bilirubin Negative Urine Urobilinogen 0.2 Ur Leukocyte Esterase 1+ H Urine RBC 1-5/hpf Urine WBC >100/hpf H Ur Squamous Epith Cells None seen Urine Bacteria Many (>30) H Urine Yeast 5-10/hpf H Ur Culture Indicated? Specimen cultured Assessment & Plan Assessment and plan (1) Sepsis: Status: Acute Plan: IVFs, Abx (2) BPH with obstruction/lower urinary tract symptoms: Status: Acute Plan: afluzosin, referral to urology b/l hydronephrosis - chronic (3) Acute UTI: Status: Acute Plan: Rocephin empiric Culture pending (4) CKD (chronic kidney disease): Status: Acute Plan: likely, based on prior / current labs with likely VIV Avoidance of nephrotoxins (5) Diabetes type 2, uncontrolled: Qualifiers: Glycemic state: with hyperglycemia Qualified Code(s): E11.65 - Type 2 diabetes mellitus with hyperglycemia Status: Chronic Plan: Lantus 20 units, SS, CCD Uncontrolled (6) Polysubstance abuse: Status: Acute Plan: smoker, methamphetamine and heroin abuse Counselling, nicotin replacement prn toxscreen pending (7) Bladder outlet obstruction: Status: Acute (8) Methamphetamine use: Status: Chronic (9) Chronic hepatitis C: Problem details: s/p Ruth Qualifiers: Hepatic coma status: without hepatic coma Qualified Code(s): B18.2 - Chronic viral hepatitis C Status: Chronic
[2023-07-23] MEDS: LACTATED RINGERS 1,000 ML 84 ML IV (05:40)
[2023-07-23 06:08] LABS: Glucose 589 mg/dL (70-100)
[2023-07-23] MEDS: INSULIN REGULAR 100 UNIT/ML 3 ML VIAL 10 UNIT SUBCUT (06:17)
--- NOTE | 2023-07-23 08:21 | P.HP_ITS ---
History of Present Illness History of Present Illness Date Patient Seen: 07/22/23 Chief complaint: catheter pain/lower abd pain Narrative: 57 y/o diabetic, with PMH of polysubstance abuse, non-compliance with medications, chronic urinary retention and since last ED visit a month ago - indwelling Martinez, presents with sepsis, UTI and abdominal pain. He finished a course of Levaquin a month ago.Started on IVFs and Rocephin in ED. Admitted with sepsis and CAUTI. [facility] Medical History (Updated 07/23/23 @ 04:41 by Humberto Talley MD) CKD (chronic kidney disease) Polysubstance abuse Self-catheterizes urinary bladder Methamphetamine use disorder, 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 Intermittent self-catheterization of bladder Hydronephrosis determined by ultrasound History of UTI Urinary retention Depression Asthma Bladder outlet obstruction Bladder atony Heroin addiction Bipolar 1 disorder Chronic hepatitis C Methamphetamine use Diabetes type 2, uncontrolled Acute urinary retention Constipation BPH (benign prostatic hyperplasia) Surgical History History of circumcision History of liver biopsy History of mandibular surgery (~1983) Family History Other Adopted person Social History marital status: unmarried,single number of children: 2 household members: none occupational status: disabled Smoking Status: Current every day smoker Tobacco: How many years used: 40 alcohol intake: former caffeine: No Meds Home Medications and Allergies Home Medications Medication Instructions Recorded Confirmed Type alfuzosin 10 mg tablet,extended 10 mg PO DAILY #90 tabs 11/25/20 07/23/23 Rx release 24 hr insulin glargine 100 unit/mL (3 20 unit (0.2 mL) SUBCUT DAILY #15 03/29/23 07/23/23 Rx mL) subcutaneous pen (Lantus mL Solostar U-100 Insulin) pen needle, diabetic 31 gauge x #50 ea 03/31/23 07/23/23 Rx 1/4 (Pen Needle) lidocaine 5 % topical gel See Rx Instructions .Route 04/30/23 07/23/23 Rx .COMPLEX #30 grams Allergies Allergy/AdvReac Type Severity Reaction Status Date / Time codeine [CODEINE] AdvReac Intermediate GI Upset Verified 07/04/23 13:22 Review of Systems Review of Systems Narrative: Unobtainable due to confusion Gastrointestinal Comments: abdominal pain Exam Vital Signs (past 8 hours): - 07/23/23 00:32 07/23/23 00:33 07/23/23 00:33 Temperature Pulse Rate 120 H Respiratory Rate 24 Blood Pressure 133/61 131/62 Pulse Oximetry 93 Oxygen Delivery Method Room Air Oxygen Flow Rate 07/23/23 00:56 07/23/23 01:00 07/23/23 01:00 Temperature 100.9 F H Pulse Rate 124 H Respiratory Rate 34 H Blood Pressure 134/71 Pulse Oximetry Oxygen Delivery Method Oxygen Flow Rate 07/23/23 01:09 07/23/23 01:30 07/23/23 01:36 Temperature 100.9 F H Pulse Rate 118 H Respiratory Rate 21 Blood Pressure 115/94 H Pulse Oximetry 99 Oxygen Delivery Method Oxygen Flow Rate 07/23/23 01:36 07/23/23 02:00 07/23/23 02:00 Temperature Pulse Rate 124 H 121 H Respiratory Rate 18 19 Blood Pressure 131/77 Pulse Oximetry 98 93 Oxygen Delivery Method Room Air Oxygen Flow Rate 07/23/23 02:30 07/23/23 02:30 07/23/23 03:00 Temperature Pulse Rate 121 H Respiratory Rate Blood Pressure 131/73 121/58 L Pulse Oximetry 94 Oxygen Delivery Method Oxygen Flow Rate 07/23/23 03:00 07/23/23 03:30 07/23/23 03:30 Temperature Pulse Rate 119 H 119 H Respiratory Rate 12 Blood Pressure 100/59 L Pulse Oximetry 95 97 Oxygen Delivery Method Oxygen Flow Rate 07/23/23 04:00 07/23/23 04:00 07/23/23 04:30 Temperature 99.3 F Pulse Rate 107 H Respiratory Rate 12 Blood Pressure 138/82 142/79 H Pulse Oximetry 96 Oxygen Delivery Method Room Air Oxygen Flow Rate 07/23/23 04:30 07/23/23 05:00 07/23/23 08:00 Temperature 98.6 F 98.7 F Pulse Rate 110 H 102 H 88 Respiratory Rate 17 24 16 Blood Pressure 125/78 114/72 Pulse Oximetry 98 98 97 Oxygen Delivery Method Oxygen Flow Rate 0 Oxygen Delivery Method Room Air Oxygen Flow Rate 0 Objective Labs 07/23/23 14:40 07/23/23 14:40 Labs: Laboratory Results - last 24 hr 07/22/23 07/23/23 07/23/23 22:33 00:24 00:35 WBC 15.0 H RBC 4.46 L Hgb 13.0 L Hct 38.1 L MCV 85.3 MCH 29.1 MCHC 34.0 RDW 13.0 Plt Count 400 Neut % (Auto) 91.2 H Lymph % (Auto) 4.3 L [place] % (Auto) 3.7 Eos % (Auto) 0.2 L Baso % (Auto) 0.6 Neut # (Auto) 26291 H Lymph # (Auto) 600 L [place] # (Auto) 500 Eos # (Auto) 0 Baso # (Auto) 100 VBG pH 7.60 H VBG pCO2 27.3 L VBG pO2 61 H VBG HCO3 27 VBG Total CO2 28 VBG O2 Saturation 95 H VBG Base Excess 5.0 H FiO2 21 Sodium 128 L Potassium 4.5 Chloride 91 L Carbon Dioxide 28 BUN 24 H Creatinine 1.38 H Estimated GFR > 60 BUN/Creatinine Ratio 17.4 Glucose 613 H* Lactate 1.7 Calcium 9.0 Total Bilirubin 0.6 AST 17 ALT 15 Alkaline Phosphatase 111 Total Protein 7.2 Albumin 3.6 Globulin 3.6 Albumin/Globulin Ratio 1.0 Urine Color Yellow Urine Appearance Cloudy Urine pH 6.0 Ur Specific [place] 1.010 Urine Protein 2+ H Urine Glucose (UA) 3+ H Urine Ketones Negative Urine Occult Blood 2+ H Urine Nitrate Positive H Urine Bilirubin Negative Urine Urobilinogen 0.2 Ur Leukocyte Esterase 1+ H Urine RBC 1-5/hpf Urine WBC >100/hpf H Ur Squamous Epith Cells None seen Urine Bacteria Many (>30) H Urine Yeast 5-10/hpf H Ur Culture Indicated? Specimen cultured 07/23/23 05:53 WBC RBC Hgb Hct MCV MCH MCHC RDW Plt Count Neut % (Auto) Lymph % (Auto) [place] % (Auto) Eos % (Auto) Baso % (Auto) Neut # (Auto) Lymph # (Auto) [place] # (Auto) Eos # (Auto) Baso # (Auto) VBG pH VBG pCO2 VBG pO2 VBG HCO3 VBG Total CO2 VBG O2 Saturation VBG Base Excess FiO2 Sodium Potassium Chloride Carbon Dioxide BUN Creatinine Estimated GFR BUN/Creatinine Ratio Glucose 589 H* Lactate Calcium Total Bilirubin AST ALT Alkaline Phosphatase Total Protein Albumin Globulin Albumin/Globulin Ratio Urine Color Urine Appearance Urine pH Ur Specific [place] Urine Protein Urine Glucose (UA) Urine Ketones Urine Occult Blood Urine Nitrate Urine Bilirubin Urine Urobilinogen Ur Leukocyte Esterase Urine RBC Urine WBC Ur Squamous Epith Cells Urine Bacteria Urine Yeast Ur Culture Indicated? Assessment & Plan Assessment and plan (1) Sepsis: Status: Acute Plan: IVFs, Abx Febrile on rocephin so broadened to Zosyn (2) BPH with obstruction/lower urinary tract symptoms: Status: Acute Plan: afluzosin, referral to urology b/l hydronephrosis - chronic (3) Acute UTI: Status: Acute Plan: Rocephin empiric initially, now on zosyn Culture pending (4) CKD (chronic kidney disease): Status: Acute Plan: likely, based on prior / current labs with likely VIV Avoidance of nephrotoxins (5) Diabetes type 2, uncontrolled: Qualifiers: Glycemic state: with hyperglycemia Qualified Code(s): E11.65 - Type 2 diabetes mellitus with hyperglycemia Status: Chronic Plan: Lantus 20 units, SS, CCD Uncontrolled (6) Polysubstance abuse: Status: Acute Plan: smoker, methamphetamine and heroin abuse Counselling, nicotin replacement prn toxscreen positive for cocaine, meth, and MDMA (7) Bladder outlet obstruction: Status: Acute (8) Methamphetamine use: Status: Chronic (9) Chronic hepatitis C: Problem details: s/p Ruth Qualifiers: Hepatic coma status: without hepatic coma Qualified Code(s): B18.2 - Chronic viral hepatitis C Status: Chronic
[2023-07-23] MEDS: INSULIN REGULAR 100 UNIT/ML 3 ML VIAL 20 UNIT IV (08:43)
[2023-07-23] MEDS: ENOXAPARIN 40 MG/0.4 ML SYRINGE SUBCUT (08:44)
[2023-07-23] MEDS: INSULIN GLARGINE 100 UNIT/ML 3ML PEN 20 UNIT SUBCUT (08:47)
[2023-07-23 09:39] LABS: Ur Creatinine Normal (Normal); Ur Specific Gravity Normal (Normal); Urine Cocaine Positive (Negative); Urine Tetrahydrocannabinol Negative (Negative); Urine pH Normal (Normal)
[2023-07-23 09:40] LABS: UR Morphine/Opiate cutoff 300 Negative (Negative); Urine Amphetamines Positive (Negative); Urine Methamphetamines Positive (Negative)
[2023-07-23 09:41] LABS: Urine Barbiturates Negative (Negative); Urine Benzodiazepines Negative (Negative); Urine MDMA Positive (Negative); Urine Methadone Negative (Negative); Urine Oxycodone Negative (Negative); Urine Phencyclidine Negative (Negative); Urine Tricyclic Antidepressant Negative (Negative)
--- NOTE | 2023-07-23 10:14 | CM.DANOTE ---
Attempted to meet with patient at 0910 but shaking, eyes closed will not respond to CM questions. CM team will work on discharge assessment when patient is capable of interacting.
[2023-07-23] MEDS: INSULIN LISPRO 100 UNIT/ML 3ML VIAL SUBCUT (10:16)
[2023-07-23] MEDS: PIPERACILLIN/TAZO 4.5 GM in SODIUM CHLORIDE 0.9% 100 ML IV (10:40)
[2023-07-23] MEDS: DEXTROSE 50 % IN WATER 25 GM/50 ML SYRINGE IV (11:24)
[2023-07-23] MEDS: DEXTROSE 5% WATER 1,000 ML 50 ML IV (14:11)
[2023-07-23 14:46] LABS: Add Manual Diff / Slide Review NO; Basophils Absolute Auto 100 /uL (0-100); Basophils Percent Auto 0.4 % (0-2); Eosinophils Absolute Auto 100 /uL (0-450); Eosinophils Percent Auto 0.5 % (2-4); Hematocrit 32.1 % (41-53); Hemoglobin 10.7 g/dL (13.5-17.5); Lymphocytes Absolute Auto 2000 /uL (1100-4500); Lymphocytes Percent Auto 14.7 % (25-40); Mean Corpuscular HGB Conc 33.3 % (30-36); Mean Corpuscular Hemoglobin 28.4 PG (26-34); Mean Corpuscular Volume 85.2 fL (80-100); Monocytes Absolute Auto 1300 /uL (0-900); Monocytes Percent Auto 9.4 % (3-14); Neutrophils Absolute Auto 10200 /uL (1500-7000); Platelet Count 334 X10^3/uL (150-400); Red Blood Cell Count 3.77 X10^6/uL (4.5-5.9); Red Cell Distribution Width 13.1 % (11.6-14.8); White Blood Cell Count 13.6 X10^3/uL (4.5-11.0)
[2023-07-23 15:00] LABS: BUN Creatinine Ratio 13.4 (6-22); Blood Urea Nitrogen 23 mg/dL (9-20); Calcium 8.2 mg/dL (8.4-10.2); Carbon Dioxide 26 mmol/L (22-32); Chloride 102 mmol/L (98-107); Estimated Glomerular Filt Rate 46 mL/min (>60); Glucose 100 mg/dL (70-100); HEMOLYSIS < 15 (0-50); Potassium 3.7 mmol/L (3.4-5.1); Sodium 135 mmol/L (137-145)
[2023-07-23] MEDS: LIDOCAINE 2% (GLYDO) 6 ML GEL TOP ×2 (15:23→19:38)
--- NOTE | 2023-07-23 15:44 | CM.DANOTE ---
DCP: Chart review for case, met with patient at bedside, they agree to case management assessment. Completed DCP assessment based on information available. Patient is a 57 year old admitted for complex UTI with [facility] indwelling Martinez catheter and polysubstance abuse with active withdrawl. Girlfriend Tereso stopped by but missed by CM team. Patient is unable to conduct conversation due to shaking, sweating and sedation. States he lives alone, confirms his address on facesheet and that Tereso is looking after his dog named Ayush. CM team following for progression to DC home with drug rehab/addiction resources. PCP: None, [facility] for urology. Payer: [facility] DME: None/ Martinez DCP: DC home with drug rehab resources Manjula Ackerman RN, CM Discharge Planning/Care Management CM Discharge Assessment Start: 07/23/23 15:40 Freq: Status: Active Protocol: Document 07/23/23 15:40 BQ (Rec: 07/23/23 15:43 BQ [id number]) Discharge Planning Assessment Assigned Surgical Device Sales Representative Manjula Ackerman RN, CM Advance Directives? No Advance Directives on File No History Provided By Patient,Medical Record Has Patient been admitted in last 30 No days? Prior Living Arrangements Apartment/Condo Household Members none Type of transporation used prior to Relies on Others admit Independent with ADL's Yes Is patient alert and oriented? No Caregiver for Another Yes: Dog Patient/Family Preference Drug/Alcohol Rehab Barriers to Discharge Yes Comment no PCP, does not drive, daily meth use Discharge Plan Home Transportation Arrangement Likely mom or Medicaid transport or girlfriend Tereso Referrals Initiated Other Additional Comment Medicaid transport, drug rehab , PCP clinics Whiteboard Updated in Patient Room with Yes name and ext. # of Surgical Device Sales Representative Review Status In Process Next Review Type Continued Stay Review
--- NOTE | 2023-07-23 15:51 | PC.NURSE ---
Addendum entered by Marisa Hernández R.N. 07/23/23 19:17: pt's ramos came off. pt agreed to replace it now Original Note: patient's BG was 416, notified provider, provider ordered Regular insulin and lantus. Also provider mentioned to give lispro per sliding scale after 1hr after giving Regular insulin. Rechecked pt's BG after 15 min and it was 169, at this time pt was starting to get sweaty. BG progressively got lower quickly and was down to 129 at this time patient was diaphoretic, gave some 3 cups of orange juice but BG was still going down to 80's. Provider ordered D50. pt was diaphoretic again at 1410, BG 82. pt is now on D5W @50mls/hr.
--- NOTE | 2023-07-23 16:30 | PC.NURSE ---
patient woke crying ,told him his cath. was going to be replaced,crying more and holding his penis refusing to move hand.states does not want new ramos. medications explained for pain, pt still refused new cath.
[2023-07-23] MEDS: PIPERACILLIN/TAZO 3.375 GM in SODIUM CHLORIDE 0.9% 100 ML IV (18:44)
--- NOTE | 2023-07-23 23:50 | PC.NURSE ---
Addendum entered by Ami Titus R.N. 07/24/23 03:21: Martinez changed @ 1945, 1.5 hrs later 2,000 ml out. Draining cloudy, purulent urine, appears thick and milky. Temperature 101.5 @ 2330, down to 99.1, Tylenol given. IV Abx infusing. Patient is anxious and tearful. 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 Patient receiving D5W @ 50 ml/hr. Blood sugar has been fluctuating throughout the day, from 71-416 mg/dL. Bedtime insulin held.
[2023-07-24 00:29] VITALS: TEMP 37.3
[2023-07-24] MEDS: HYDROMORPHONE 0.5 MG INJ IV (00:30)
[2023-07-24 02:00] VITALS: RESP 16
[2023-07-24] MEDS: PIPERACILLIN/TAZO 3.375 GM in SODIUM CHLORIDE 0.9% 100 ML IV (03:11)
[2023-07-24 04:37] VITALS: BP 165/100; PULSE 91; RESP 16; TEMP 36.8; O2SAT 100
[2023-07-24 08:00] VITALS: BP 100/70; PULSE 102; RESP 17; TEMP 36.2; O2SAT 98
[2023-07-24] MEDS: INSULIN GLARGINE 100 UNIT/ML 3ML PEN 15 UNIT SUBCUT (09:30)
[2023-07-24] MEDS: INSULIN LISPRO 100 UNIT/ML 3ML VIAL SUBCUT ×2 (09:30→11:40)
[2023-07-24] MEDS: ENOXAPARIN 40 MG/0.4 ML SYRINGE SUBCUT (09:30)
--- NOTE | 2023-07-24 09:46 | PC.NURSE ---
Patient would like to talk to the doctor and go home. Dr. Shah is aware of this and will talk to the patient. AMA paperwork printed, just in case he leaves against medical advice.
[2023-07-24] MEDS: FOSFOMYCIN 3 GM PACKET PO (09:50)
--- NOTE | 2023-07-24 11:26 | P.DS_ITS ---
History of Present Illness History of Present Illness Chief complaint: catheter pain/lower abd pain Narrative: 57 y/o diabetic, with PMH of polysubstance abuse, non-compliance with medications, chronic urinary retention and since last ED visit a month ago - indwelling Ramos, presents with sepsis, UTI and abdominal pain. He finished a course of Levaquin a month ago.Started on IVFs and Rocephin in ED. Admitted with sepsis and CAUTI. Discharge Providers Provider Date of admission: 07/23/23 03:21 Discharge Date: 07/24/23 Primary care physician: Doctor Drew, Discharge provider: Duane Shah DO Summary Hospital Course Discharge Diagnosis: 1) Sepsis: Status: Acute Plan: IVFs, Abx (2) BPH with obstruction/lower urinary tract symptoms: Status: Acute Plan: afluzosin, referral to urology b/l hydronephrosis - chronic (3) Acute UTI: Status: Acute Plan: Rocephin empiric initially, then on zosyn Culture pending (4) CKD (chronic kidney disease): Status: Acute Plan: likely, based on prior / current labs with likely VIV Avoidance of nephrotoxins (5) Diabetes type 2, uncontrolled: Qualifiers: Glycemic state: with hyperglycemia Qualified Code(s): E11.65 - Type 2 diabetes mellitus with hyperglycemia Status: Chronic Plan: Lantus 20 units, SS, CCD Uncontrolled (6) Polysubstance abuse: Status: Acute Plan: smoker, methamphetamine and heroin abuse Counselling, nicotin replacement prn toxscreen positive for cocaine, meth, and MDMA (7) Bladder outlet obstruction: Status: Acute (8) Methamphetamine use: Status: Chronic (9) Chronic hepatitis C: Problem details: s/p [facility] Course: Admitted for UTI from chronic inwdwelling ramos. Recieved IV abx. Had withdrawals from substances while inpatient. Discharged on po abx to finish course. Exam Vital Signs (past 8 hours): - 07/24/23 04:37 07/24/23 08:00 Temperature 98.3 F 97.1 F L Pulse Rate 91 H 102 H Respiratory Rate 16 17 Blood Pressure 165/100 H 100/70 Pulse Oximetry 100 98 Oxygen Flow Rate 0 Oxygen Delivery Method Room Air Oxygen Flow Rate 0 Resp Other: CTA Cardio Other: Tachycardic, regular Neuro Other: w/o obvious deficits Extrem Other: w/o swelling Psych Other: encephalopathic Objective Labs 07/23/23 14:40 07/23/23 14:40 Labs: Laboratory Results - last 24 hr 07/23/23 14:40 WBC 13.6 H RBC 3.77 L Hgb 10.7 L Hct 32.1 L MCV 85.2 MCH 28.4 MCHC 33.3 RDW 13.1 Plt Count 334 Neut % (Auto) 75.0 Lymph % (Auto) 14.7 L [place] % (Auto) 9.4 Eos % (Auto) 0.5 L Baso % (Auto) 0.4 Neut # (Auto) 89863 H Lymph # (Auto) 2000 [place] # (Auto) 1300 H Eos # (Auto) 100 Baso # (Auto) 100 Sodium 135 L Potassium 3.7 Chloride 102 Carbon Dioxide 26 BUN 23 H Creatinine 1.72 H Estimated GFR 46 L BUN/Creatinine Ratio 13.4 Glucose 100 D Calcium 8.2 L PFSH Medical History CKD (chronic kidney disease) Polysubstance abuse Self-catheterizes urinary bladder Methamphetamine use disorder, 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 Intermittent self-catheterization of bladder Hydronephrosis determined by ultrasound History of UTI Urinary retention Depression Asthma Bladder outlet obstruction Bladder atony Heroin addiction Bipolar 1 disorder Chronic hepatitis C Methamphetamine use Diabetes type 2, uncontrolled Acute urinary retention Constipation BPH (benign prostatic hyperplasia) Surgical History History of circumcision History of liver biopsy History of mandibular surgery (~1983) Family History Other Adopted person Social History marital status: unmarried,single number of children: 2 household members: none occupational status: disabled Smoking Status: Current every day smoker Tobacco: How many years used: 40 alcohol intake: former caffeine: No Discharge Plan Discharge Plan Patient Disposition: Home Discharge orders & Medications Prescriptions: Continued alfuzosin 10 mg tablet extended release 24 hr 10 mg PO DAILY Qty: 90 3RF Patient Comments: Patient states he hasn't taken med in over a month Rx Instructions: administer after the same meal each day (DME) pen needle, diabetic [Pen Needle] 31 gauge x 1/4 needle See Rx Instructions .Route Qty: 50 0RF Rx Instructions: As directed lidocaine 5 % gel See Rx Instructions .ROUTE .COMPLEX Qty: 30 0RF Patient Comments: Patient states he hasn't used in a month Rx Instructions: Use a small amount on the tip of the penis TID as needed for discomfort. insulin glargine [Lantus Solostar U-100 Insulin] 100 unit/mL (3 mL) Insulin Pen 20 unit SUBCUT DAILY Qty: 15 0RF Patient Comments: patient states he hasn't taken in about 6 months No Action cefdinir 300 mg capsule 300 mg PO BID Qty: 10 0RF Follow up/Referrals: Rajendra,Doctor, MD [Primary Care Provider] - Visit Report/Discharge Packet Instructions: Urinary Tract Infection, DI for Urinary Tract Infection (UTI) Stand Alone Forms: Patient Portal/API, Stroke Signs & Symptoms Discharge Data Primary Care Provider: Doctor Rajendra Attending Provider: Humberto Dickens Admit Date/Time: 07/23/23 03:21 Discharges patient from system. Discharge Date/Time: 07/24/23 11:50
--- NOTE | 2023-07-24 11:28 | CM.DANOTE ---
Per , pt wanting to discharge today although MD had been working with Pharmacist and Lab to confirm no IV-Abx needed for a few days. met with pt bedside and pt wants to d/c before lunchtime. working on discharge pwk. RN aware and will provide discharge instructions when available. Pt has [employer] for insurance and no PCP. EMR was reviewed. Per , pt with uncontrolled blood glucose of 1000 with VIV secondary to UTI with urinary retention at baseline. Pt's UDS also positive for amphetamines/methamphetamines/MDMA/ Pt last admitted 03/28/23 for similar and discharged home with PCP list and declined KATHY tx at that time as well. SW met bedside with pt and explained role and pt confirms he still lives in [place] alone but has local girlfriend. Pt's ex lives in [place] with their young son, they do not have much contact. Pt admits to daily meth use and confirms he has a hx of treatment in the past but does not feel that he needs formal tx. Pt confirms he has a remote hx of alcohol abuse and heroin addition but states since he was dx with Hep C he stopped drinking and using heroin. Pt aware of the CD resources available. Pt denies any recent KATHY tx and SW inquired if pt might be ready for MAT tx through like [facility] or [facility] and pt declines at this time and not interested. Pt states on his contacts are his mother who lives locally but they do not communicate much right now but she could assist some if needed. Pt's other contact is Karyna, pt's Dtr's mother, who they continue to have some contact but not much. Pt feels he has local supportive friends. Pt does not currently work but receives [employer] for his monthly income and does not drive as he does not currently have a vehicle. Pt has Medicaid transport benefits. Pt confirms he currently does not have a PCP, attempted to establish with Dr. Hamilton but pt has a hx of noncompliance and Dr. Hamilton has not seen the pt for 2 yrs and states pt no longer his established pt for PCP. SW was given the PCP list in February this year again and pt still has not established care yet. Pt denies any d/c needs at this time and states he just spoke to his girlfriend who can transport him home and will be here in about 15 min. Pt to d/c with ramos and wants to d/c home shirley. SW updated RN. Plan: Patient to d/c today via girlfriend POV and declines any resources again at this time and preference is home and encouraged to establish with PCP. VANESSA Mcdaniel Discharge Planning/Care Management Advanced directive, confirm from FAMILY Start: 07/23/23 07:07 Freq: Q24H Status: Active Protocol: Document 07/23/23 15:50 HCW (Rec: 07/23/23 15:50 HCW [id number]) Advance Directive, confirm on record Time 14:30 Person contacted patient Copy received No CM Discharge Assessment Start: 07/23/23 15:40 Freq: Status: Active Protocol: Document 07/23/23 15:40 BQ (Rec: 07/23/23 15:43 BQ [id number]) Discharge Planning Assessment Assigned Coater Manjula Ackerman RN CM Advance Directives? No Advance Directives on File No History Provided By Patient,Medical Record Has Patient been admitted in last 30 No days? Prior Living Arrangements Apartment/Condo Household Members none Type of transporation used prior to Relies on Others admit Independent with ADL's Yes Is patient alert and oriented? No Caregiver for Another Yes: Dog Patient/Family Preference Drug/Alcohol Rehab Barriers to Discharge Yes Comment no PCP, does not drive, daily meth use Discharge Plan Home Transportation Arrangement Likely mom or Medicaid transport or girlfriend Tereso Referrals Initiated Other Additional Comment Medicaid transport, drug rehab , PCP clinics Whiteboard Updated in Patient Room with Yes name and ext. # of Coater Review Status In Process Next Review Type Continued Stay Review
[2023-07-24 12:00] VITALS: BP 97/67; PULSE 94; RESP 18; TEMP 36.8; O2SAT 94
--- NOTE | 2023-08-04 14:23 | PC.NURSE ---
Late Entry: Piperacillin infusion initiated 07/23 at 1040 complete at 1111.
--- NOTE | 2023-08-10 16:29 | PC.NURSE ---
Late Entry: Piperacillin infusion initiated 07/23 at 1040 complete 1111.
== END 2023-07-24 11:50 | disposition home or self-care (01) ==
LOC: ED 07-23 03:22 → AC 07-23 08:19
PROVIDERS: Student in an Organized Health Care Education/Training Program; Admitting Provider Internal Medicine; Emergency Provider Emergency Medicine; Referring Provider Emergency Medicine; Visit Provider Internal Medicine
DX: A41.9 Sepsis, unspecified organism (principal); B96.89 Other specified bacterial agents as the cause of diseases classified elsewhere; N39.0 Urinary tract infection, site not specified; T83.511A Infection and inflammatory reaction due to indwelling urethral catheter, initial encounter; N40.1 Benign prostatic hyperplasia with lower urinary tract symptoms; N13.8 Other obstructive and reflux uropathy; E11.65 Type 2 diabetes mellitus with hyperglycemia; B18.2 Chronic viral hepatitis C; Z91.148 Patient's other noncompliance with medication regimen for other reason; F19.10 Other psychoactive substance abuse, uncomplicated; Z96.0 Presence of urogenital implants; Z79.4 Long term (current) use of insulin
CPT/HCPCS: 36415; 74176; 80048; 80053; 80305; 81001; 81003; 82805; 82947; 82962; 83605; 85025; 87040; 87077; 87086; 87186; 93005; 96365; 96366; 96367; 96372; 96375; 96376; 99284; G0378; J0696; J1170; J1650; J1815; J1885; J2543

== ENCOUNTER 2023-07-30 00:02 | Emergency (ER) | payer OTHER, MEDICAID, SELFPAY ==
[2023-07-23 06:00] VITALS: BMI 20.7
[2023-07-30] VITALS (9 sets, daily range): BP systolic 109–130; BP diastolic 72–87; PULSE 99–122; RESP 20; TEMP 36.3; O2SAT 96–100; BMI 19.8
--- NOTE | 2023-07-30 00:26 | ED.GENADULT ---
HPI - General Adult General Chief complaint: Abdominal Pain Stated complaint: BOWEL OBSTRUCTION/ CANT POOP Time Seen by Provider: 07/30/23 00:06 Source: patient and family Mode of arrival: Wheelchair History of Present Illness HPI narrative: Patient is a 57-year-old male. Is daily methamphetamine user. Also has an indwelling urinary catheter. Is here for evaluation of his catheter not draining and constipation. He stated that he has not had a bowel movement in the past several days. He has tried enemas at home along with manual disimpaction. He is not vomiting. He also states that his catheter is not draining. He was seen at an outside facility just several hours ago. I was able to review that note. At that time his catheter was draining. They gave him some magnesium citrate and was discharged home. Related Data Previous Rx's Medication Instructions Recorded alfuzosin 10 mg tablet,extended 10 mg PO DAILY #90 tabs 11/25/20 release 24 hr insulin glargine 100 unit/mL (3 20 unit (0.2 mL) SUBCUT DAILY #15 03/29/23 mL) subcutaneous pen (Lantus mL Solostar U-100 Insulin) pen needle, diabetic 31 gauge x #50 ea 03/31/23 1/4 (Pen Needle) lidocaine 5 % topical gel See Rx Instructions .Route 04/30/23 .COMPLEX #30 grams Allergies Allergy/AdvReac Type Severity Reaction Status Date / Time codeine [CODEINE] AdvReac Intermediate GI Upset Verified 07/04/23 13:22 Review of Systems Constitutional Constitutional: Reports system reviewed and no additional complaints, except as documented Gastrointestinal Gastrointestinal: Reports system reviewed and no additional complaints, except as documented Genitourinary Genitourinary: Reports system reviewed and no additional complaints, except as documented Patient History Medical History CKD (chronic kidney disease) Polysubstance abuse Self-catheterizes urinary bladder Methamphetamine use disorder, 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 Intermittent self-catheterization of bladder Hydronephrosis determined by ultrasound History of UTI Urinary retention Depression Asthma Bladder outlet obstruction Bladder atony Heroin addiction Bipolar 1 disorder Chronic hepatitis C Methamphetamine use Diabetes type 2, uncontrolled Acute urinary retention Constipation BPH (benign prostatic hyperplasia) Surgical History History of circumcision History of liver biopsy History of mandibular surgery (~1983) Family History Other Adopted person Social History marital status: unmarried,single number of children: 2 household members: none occupational status: disabled Smoking Status: Current every day smoker Tobacco: How many years used: 40 alcohol intake: former caffeine: No Smoking Status: Current every day smoker alcohol intake frequency: 0-2 drinks per day Substance Use Type: methamphetamine Exam Initial Vital Signs Initial Vital Signs: Vital Signs Pulse Rate 121 H 07/30/23 00:13 Blood Pressure 130/87 07/30/23 00:13 Pulse Oximetry 98 07/30/23 00:13 Const General: cooperative, comfortable and No ill appearing HENMT Head: normal to inspection and normocephalic Resp Effort & Inspection: normal respiratory effort Cardio Rate: regular rate GI Inspection: normal to inspection and non-distended Palpation: tender (Lower abdomen) Neuro General: patient alert, patient awake and moves all extremities Course Orders Ordered: Discontinued Medications Sodium Biphosphate/Sodium Phosphate (Fleets Enema) 1 each MI NOW ONE Stop: 07/30/23 01:16 Last Admin: 07/30/23 01:24 Dose: 1 each Documented By: DEEPA Vital Signs Vital signs: Vital Signs - 8 hr 07/30/23 00:13 07/30/23 00:13 07/30/23 00:17 Temperature 97.4 F L Pulse Rate 121 H 122 H Respiratory Rate 20 Blood Pressure 130/87 130/87 Pulse Oximetry 98 99 Oxygen Delivery Method Room Air 07/30/23 00:30 07/30/23 01:00 07/30/23 01:01 Temperature Pulse Rate 122 H 111 H 105 H Respiratory Rate Blood Pressure Pulse Oximetry 100 97 96 Oxygen Delivery Method 07/30/23 01:01 07/30/23 01:21 07/30/23 01:30 Temperature Pulse Rate 99 H Respiratory Rate Blood Pressure 124/76 117/72 Pulse Oximetry Oxygen Delivery Method 07/30/23 01:31 07/30/23 02:00 Temperature Pulse Rate 100 H Respiratory Rate Blood Pressure 109/76 Pulse Oximetry 96 Oxygen Delivery Method Medical Decision Making MDM Narrative Medical decision making narrative: Patient does have fullness in his lower abdomen that is most likely urinary retention. His Martinez catheter was flushed there was returned approximately 1 L. He states he was feeling much better. I do suspect that this is complicating his constipation issues. We discussed options to include laxatives and enemas and whether not he should be administered here at home. He opted to have an enema here. An enema was administered in he was able to have a bowel movement. States he is feeling better. No indication for imaging studies. Will discharge patient home. Discharge Plan Departure Patient Disposition: Home Clinical Impression: Constipation, Blocked urinary catheter Instructions: DI for Constipation Activity Restrictions/Additional Instructions: Recommend that you continue to take all of your medications as directed and keep of your scheduled medical appointments. Return to the emergency department for new symptoms. Prescriptions: No Action alfuzosin 10 mg tablet extended release 24 hr 10 mg PO DAILY Qty: 90 3RF Patient Comments: Patient states he hasn't taken med in over a month Rx Instructions: administer after the same meal each day (DME) pen needle, diabetic [Pen Needle] 31 gauge x 1/4 needle See Rx Instructions .Route Qty: 50 0RF Rx Instructions: As directed lidocaine 5 % gel See Rx Instructions .ROUTE .COMPLEX Qty: 30 0RF Patient Comments: Patient states he hasn't used in a month Rx Instructions: Use a small amount on the tip of the penis TID as needed for discomfort. insulin glargine [Lantus Solostar U-100 Insulin] 100 unit/mL (3 mL) Insulin Pen 20 unit SUBCUT DAILY Qty: 15 0RF Patient Comments: patient states he hasn't taken in about 6 months Referrals: Miscellaneous,Doctor, MD [Primary Care Provider] - Stand Alone Forms: Patient Portal/API
[2023-07-30] MEDS: FLEETS ENEMA 1 EACH PR (01:24)
== END 2023-07-30 02:52 | disposition home or self-care (01) ==
PROVIDERS: Emergency Provider Emergency Medicine
DX: T83.098A Other mechanical complication of other urinary catheter, initial encounter (principal); K59.00 Constipation, unspecified
CPT/HCPCS: 99282; 99283

== ENCOUNTER 2023-08-01 13:10 | Emergency (ER) | payer OTHER, MEDICAID, SELFPAY ==
[2023-07-23 06:00] VITALS: BMI 20.7
== END 2023-08-01 13:37 | disposition left against medical advice (07) ==
PROVIDERS: Emergency Provider Emergency Medicine
CPT/HCPCS: 99281

== ENCOUNTER 2023-08-03 06:49 | Emergency (ER) | payer OTHER, MEDICAID, SELFPAY ==
[2023-07-23 06:00] VITALS: BMI 20.7
[2023-08-03 06:51] VITALS: BP 134/85; PULSE 101; RESP 18; TEMP 36.6; O2SAT 95; BMI 19.8
--- NOTE | 2023-08-03 07:02 | PC.NURSE ---
see triage note, pt states he is ready to have the catheter changed for a bigger on, pt had 14fr cath indwelling and is having difficulty with it draining appropriately
--- NOTE | 2023-08-03 07:15 | ED.MALEGU ---
HPI - Male Genitourinary <Chandu Mcgill MD - Last Filed: 08/09/23 08:25> General Chief complaint: Urogenital-Male Stated complaint: catheter problems Time Seen by Provider: 08/03/23 07:06 Mode of arrival: EMS History of Present Illness HPI Narrative: Patient brought here by ambulance from home for complaints of blocked indwelling Martinez catheter. Patient has history chronic urinary retention. Has had problems with retention for many years. Was seeing urology group in [place] then was transferred to another group which no longer sees him. He is in between urology groups. Patient admitted here earlier this month for UTI. He returned here 4 days ago for a blocked catheter and it was flushed and discharged home. Complains of suprapubic pain and distention. No fever chills. Tachycardia noted however patient. Patient has had many visits here with tachycardia. He does have history of methamphetamine abuse/polysubstance abuse. History of diabetes, depression, bipolar disease. History of BPH Related Data Previous Rx's Medication Instructions Recorded alfuzosin 10 mg tablet,extended 10 mg PO DAILY #90 tabs 11/25/20 release 24 hr insulin glargine 100 unit/mL (3 20 unit (0.2 mL) SUBCUT DAILY #15 03/29/23 mL) subcutaneous pen (Lantus mL Solostar U-100 Insulin) pen needle, diabetic 31 gauge x #50 ea 03/31/23 1/ (Pen Needle) lidocaine 5 % topical gel See Rx Instructions .Route 04/30/23 .COMPLEX #30 grams cefdinir 300 mg capsule 300 mg PO BID #10 caps 08/03/23 ciprofloxacin HCl 500 mg tablet 500 mg PO BID #14 tabs 08/07/23 (Cipro) Allergies Allergy/AdvReac Type Severity Reaction Status Date / Time codeine [CODEINE] AdvReac Intermediate GI Upset Verified 07/04/23 13:22 Review of Systems <Chandu Mcgill MD - Last Filed: 08/09/23 08:25> Review of Systems Narrative: GENERAL: negative chills, fatigue, malaise, fever, sweats. HEENT: negative sinus pain, ear pain, sore throat RESPIRATORY: negative dyspnea, cough CARDIOVASCULAR: negative chest pain, palpitations GASTROINTESTINAL: negative nausea, vomiting, abdominal pain : Positive retention MUSCULOSKELETAL: negative muscle or bony pain SKIN: negative rash, skin lesions NEUROLOGIC: negative weakness, numbness ROS Unobtainable: All systems reviewed & are unremarkable except as noted in HPI and below Patient History <Chandu Mcgill MD - Last Filed: 08/09/23 08:25> Medical History CKD (chronic kidney disease) Polysubstance abuse Self-catheterizes urinary bladder Methamphetamine use disorder, 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 Intermittent self-catheterization of bladder Hydronephrosis determined by ultrasound History of UTI Urinary retention Depression Asthma Bladder outlet obstruction Bladder atony Heroin addiction Bipolar 1 disorder Chronic hepatitis C Methamphetamine use Diabetes type 2, uncontrolled Acute urinary retention Constipation BPH (benign prostatic hyperplasia) Surgical History History of circumcision History of liver biopsy History of mandibular surgery (~1983) Family History Other Adopted person Social History marital status: unmarried,single number of children: 2 household members: none occupational status: disabled Smoking Status: Current every day smoker Tobacco: How many years used: 40 alcohol intake: former caffeine: No Smoking Status: Current every day smoker alcohol intake frequency: 0-2 drinks per day Substance Use Type: methamphetamine Exam <Chandu Mcgill MD - Last Filed: 08/09/23 08:25> Narrative Exam Narrative: GENERAL: in no distress, not toxic not dyspneic HEAD: Normocephalic. EYES: Pupils equal round ENT: Mucous membranes moist. NECK: Trachea midline. CARDIOVASCULAR: Tachycardic Regular rate and rhythm RESPIRATORY: Clear to auscultation. Breath sounds equal bilaterally. No wheezes, rales, or rhonchi. GASTROINTESTINAL: Abdomen soft, mild suprapubic tenderness but there is no distention. Abdomen is soft and flat. Bowel sounds are present no pain out of proportion to exam. No CVA tenderness BACK: No flank tenderness. NEURO: AOx4. SKIN: Warm and dry PSYCH: Not anxious, is cooperative Initial Vital Signs Initial Vital Signs: Vital Signs Temperature 97.9 F 08/03/23 06:51 Pulse Rate 101 H 08/03/23 06:51 Respiratory Rate 18 08/03/23 06:51 Blood Pressure 134/85 08/03/23 06:51 Pulse Oximetry 95 08/03/23 06:51 Oxygen Delivery Method Room Air 08/03/23 06:51 <Nichole Smiley DO - Last Filed: 08/07/23 07:30> Initial Vital Signs Initial Vital Signs: Vital Signs Temperature 97.9 F 08/03/23 06:51 Pulse Rate 101 H 08/03/23 06:51 Respiratory Rate 18 08/03/23 06:51 Blood Pressure 134/85 08/03/23 06:51 Pulse Oximetry 95 08/03/23 06:51 Oxygen Delivery Method Room Air 08/03/23 06:51 Course <Chandu Mcgill MD - Last Filed: 08/09/23 08:25> Orders Ordered: Discontinued Medications Cefdinir (Cefdinir 300 Mg Capsule) 300 mg PO NOW ONE Stop: 08/03/23 09:14 Last Admin: 08/03/23 09:23 Dose: 300 mg Documented By: TERI Lidocaine HCl (Lidocaine 2% (Glydo) 6 Ml Gel) 6 ml TOP NOW ONE Stop: 08/03/23 08:18 Last Admin: 08/03/23 08:24 Dose: 6 ml Documented By: RB Lorazepam (Lorazepam 2 Mg/Ml Inj) 1 mg IM NOW ONE Stop: 08/03/23 08:21 Last Admin: 08/03/23 08:24 Dose: 1 mg Documented By: LYNDSAY Vital Signs Vital signs: Vital Signs - 8 hr 08/03/23 06:51 Temperature 97.9 F Pulse Rate 101 H Respiratory Rate 18 Blood Pressure 134/85 Pulse Oximetry 95 Oxygen Delivery Method Room Air <Nichole Smiley DO - Last Filed: 08/07/23 07:30> Orders Ordered: Discontinued Medications Cefdinir (Cefdinir 300 Mg Capsule) 300 mg PO NOW ONE Stop: 08/03/23 09:14 Last Admin: 08/03/23 09:23 Dose: 300 mg Documented By: TERI Lidocaine HCl (Lidocaine 2% (Glydo) 6 Ml Gel) 6 ml TOP NOW ONE Stop: 08/03/23 08:18 Last Admin: 08/03/23 08:24 Dose: 6 ml Documented By: RB Lorazepam (Lorazepam 2 Mg/Ml Inj) 1 mg IM NOW ONE Stop: 08/03/23 08:21 Last Admin: 08/03/23 08:24 Dose: 1 mg Documented By: RB Vital Signs Vital signs: Vital Signs - 8 hr 08/03/23 06:51 Temperature 97.9 F Pulse Rate 101 H Respiratory Rate 18 Blood Pressure 134/85 Pulse Oximetry 95 Oxygen Delivery Method Room Air MDM - Male Genitourinary <Chandu Mcgill MD - Last Filed: 08/09/23 08:25> Lab Data Labs: Lab Results 08/03/23 08/03/23 Range/Units 08:06 08:43 Urine Color Straw Urine Appearance Cloudy Urine pH 8.0 (4.5-8.0) Ur Specific [place] 1.015 (1.000-1.035) Urine Protein 3+ H (Negative) Urine Glucose (UA) 3+ H (Negative) g/dL Urine Ketones 2+ H (NEGATIVE) Urine Occult Blood Negative (Negative) Urine Nitrate Negative (Negative) Urine Bilirubin Negative (NEGATIVE) Urine Urobilinogen Normal (0.2) E.U./dL Ur Leukocyte Esterase 4+ H (NEGATIVE) Urine RBC >100/hpf H (0-5/HPF) Urine WBC >100/hpf H (0-5/HPF) Ur Squamous Epith Cells 0-1 /hpf (0-5/HPF) Urine Bacteria Moderate (10-30) H (None) Ur Culture Indicated? Specimen cultured U Opiates 300ng/mL cut Negative (Negative) Ur Oxycodone Screen Negative (Negative) Urine Methadone Screen Negative (Negative) Ur Barbiturates Screen Negative (Negative) U Tricyclic Antidepress Negative (Negative) Ur Phencyclidine Scrn Negative (Negative) Ur Amphetamines Screen Positive H (Negative) U Methamphetamines Scrn Positive H (Negative) Ur MDMA Scrn (Ecstasy) Negative (Negative) U Benzodiazepines Scrn Negative (Negative) Urine Cocaine Screen Negative (Negative) U Marijuana (THC) Screen Positive H (Negative) MDM Narrative Medical decision making narrative: Patient brought here by ambulance from home for complaints of blocked indwelling Martinez catheter. Patient has history chronic urinary retention. Has had problems with retention for many years. Was seeing urology group in [place] then was transferred to another group which no longer sees him. He is in between urology groups. Patient admitted here earlier this month for UTI. He returned here 4 days ago for a blocked catheter and it was flushed and discharged home. Complains of suprapubic pain and distention. No fever chills. Tachycardia noted however patient. Patient has had many visits here with tachycardia. He does have history of methamphetamine abuse/polysubstance abuse. History of diabetes, depression, bipolar disease. History of BPH After history and exam bladder scan urinalysis drug screen irrigate bowel MDM CC: Martinez catheter blockage Complicating co-morbidities: Chronic urinary retention/BPH Data collected from: Patient Medical records reviewed: Admission notes/discharge summary from July 22, 2023, ER visit here July 30 Differential considered: Includes but not limited to blocked Martinez catheter UTI Exam documented above, pertinent findings include: Mild suprapubic tenderness Lab Test results independently reviewed as above. Pertinent findings: Urine drug screen positive amphetamines positive methamphetamine positive marijuana Urinalysis greater than 100 WBC, moderate bacteria, 4+ leukocyte esterase, negative nitrate Treatments: Ativan was ordered to help relax patient for replacement of Martinez catheter but he declined it. Was not given. Re-evaluations: Patient doing well after Martinez catheter change. Reviewed results with him. Encouraged him to stop doing drugs. He does not want detox or pursue any changes at this time. Does agree for antibiotics for urinary tract infection. Return precautions reviewed with him. He desires discharge home Discussion: Appropriate for discharge home. Patient did have a blocked Martinez catheter. May be due to sediment/UTI. Omnicef will be started. Based on last urine culture and sensitivity Omnicef will be started. Return precautions reviewed with patient. Not toxic. Heart rate likely due to meth use. Urology referral provided. He desires discharge home. Omnicef was given here prior to discharge. No fever. Patient nontoxic. No nausea vomiting diarrhea. No blood work or imaging indicated at this time. We did replace the Martinez catheter today 14 [place] Diagnosis: Martinez catheter malfunction/block/UTI <Nichole Smiley DO - Last Filed: 08/07/23 07:30> Lab Data Labs: Lab Results 08/03/23 08/03/23 Range/Units 08:06 08:43 Urine Color Straw Urine Appearance Cloudy Urine pH 8.0 (4.5-8.0) Ur Specific [place] 1.015 (1.000-1.035) Urine Protein 3+ H (Negative) Urine Glucose (UA) 3+ H (Negative) g/dL Urine Ketones 2+ H (NEGATIVE) Urine Occult Blood Negative (Negative) Urine Nitrate Negative (Negative) Urine Bilirubin Negative (NEGATIVE) Urine Urobilinogen Normal (0.2) E.U./dL Ur Leukocyte Esterase 4+ H (NEGATIVE) Urine RBC >100/hpf H (0-5/HPF) Urine WBC >100/hpf H (0-5/HPF) Ur Squamous Epith Cells 0-1 /hpf (0-5/HPF) Urine Bacteria Moderate (10-30) H (None) Ur Culture Indicated? Specimen cultured U Opiates 300ng/mL cut Negative (Negative) Ur Oxycodone Screen Negative (Negative) Urine Methadone Screen Negative (Negative) Ur Barbiturates Screen Negative (Negative) U Tricyclic Antidepress Negative (Negative) Ur Phencyclidine Scrn Negative (Negative) Ur Amphetamines Screen Positive H (Negative) U Methamphetamines Scrn Positive H (Negative) Ur MDMA Scrn (Ecstasy) Negative (Negative) U Benzodiazepines Scrn Negative (Negative) Urine Cocaine Screen Negative (Negative) U Marijuana (THC) Screen Positive H (Negative) MDM Narrative Medical decision making narrative: Patient brought here by ambulance from home for complaints of blocked indwelling Martinez catheter. Patient has history chronic urinary retention. Has had problems with retention for many years. Was seeing urology group in [place] then was transferred to another group which no longer sees him. He is in between urology groups. Patient admitted here earlier this month for UTI. He returned here 4 days ago for a blocked catheter and it was flushed and discharged home. Complains of suprapubic pain and distention. No fever chills. Tachycardia noted however patient. Patient has had many visits here with tachycardia. He does have history of methamphetamine abuse/polysubstance abuse. History of diabetes, depression, bipolar disease. History of BPH After history and exam bladder scan urinalysis drug screen irrigate bowel MDM CC: Martinez catheter blockage Complicating co-morbidities: Chronic urinary retention/BPH Data collected from: Patient Medical records reviewed: Admission notes/discharge summary from July 22, 2023, ER visit here July 30 Differential considered: Includes but not limited to blocked Martinez catheter UTI Exam documented above, pertinent findings include: Mild suprapubic tenderness Lab Test results independently reviewed as above. Pertinent findings: Urine drug screen positive amphetamines positive methamphetamine positive marijuana Urinalysis greater than 100 WBC, moderate bacteria, 4+ leukocyte esterase, negative nitrate Treatments: Ativan was ordered to help relax patient for replacement of Martinez catheter but he declined it. Was not given. Re-evaluations: Patient doing well after Martinez catheter change. Reviewed results with him. Encouraged him to stop doing drugs. He does not want detox or pursue any changes at this time. Does agree for antibiotics for urinary tract infection. Return precautions reviewed with him. He desires discharge home Discussion: Appropriate for discharge home. Patient did have a blocked Martinez catheter. May be due to sediment/UTI. Omnicef will be started. Based on last urine culture and sensitivity Omnicef will be started. Return precautions reviewed with patient. Not toxic. Heart rate likely due to meth use. Urology referral provided. He desires discharge home. Omnicef was given here prior to discharge. No fever. Patient nontoxic. No nausea vomiting diarrhea. No blood work or imaging indicated at this time. We did replace the Martinez catheter today 14 [place] Diagnosis: Martinez catheter malfunction/block/UTI 08/07/23 Dr. Smiley-urine culture returned with 2 different bacteria both sensitive to Cipro. Cipro sent to [facility] nursing staff to call patient to change antibiotic. Raoultella planticola Enterococcus faecalis M.I.C. RX M.I.C. RX --------- --- --------- --- * Amoxicillin/Clavulanate <=2 S * Ampicillin R <=2 S * Ampicillin/Sulbactam 8 S * Daptomycin 1 S * Cefazolin <=4 S * Cefepime <=1 S * Vancomycin 1 S * Ceftazidime <=1 S * Ceftriaxone <=1 S * Ciprofloxacin <=0.25 S <=0.5 S * Ertapenem <=0.5 S * Gentamicin <=1 S * Gentamicin 500 SYN-S S * Imipenem <=0.25 S * Levofloxacin <=0.12 S 1 S * Linezolid 2 S * Nitrofurantoin <=16 S <=16 S * Streptomycin 2000 SYN-S S * Tetracycline >=16 R * Tobramycin <=1 S * Trimethoprim/Sulfamethoxazole <=20 S * Piperacillin/Tazobactam <=4 S Discharge Plan Departure Patient Disposition: Home Clinical Impression: Acute UTI Complication, blocked Martinez catheter Qualifiers: Encounter type: initial encounter Qualified Code(s): T83.091A - Other mechanical complication of indwelling urethral catheter, initial encounter Instructions: How to Care for Your Martinez Catheter -- Male, DI for Urinary Tract Infection (UTI) Activity Restrictions/Additional Instructions: Please do not do drugs. See your family doctor this week for re-evaluation. Please call provided urology offices today to obtain a new urologist. Please continue taking care of your Martinez catheter as you have in the past. Return immediately if worse if any questions or concerns. Infection was detected in the urine today and antibiotics have been prescribed. Please pick them up and to continue them until completed. Return if worse if any questions or concerns Prescriptions: New cefdinir 300 mg capsule 300 mg PO BID Qty: 10 0RF No Action alfuzosin 10 mg tablet extended release 24 hr 10 mg PO DAILY Qty: 90 3RF Patient Comments: Patient states he hasn't taken med in over a month Rx Instructions: administer after the same meal each day (DME) pen needle, diabetic [Pen Needle] 31 gauge x 1/4 needle See Rx Instructions .Route Qty: 50 0RF Rx Instructions: As directed lidocaine 5 % gel See Rx Instructions .ROUTE .COMPLEX Qty: 30 0RF Patient Comments: Patient states he hasn't used in a month Rx Instructions: Use a small amount on the tip of the penis TID as needed for discomfort. insulin glargine [Lantus Solostar U-100 Insulin] 100 unit/mL (3 mL) Insulin Pen 20 unit SUBCUT DAILY Qty: 15 0RF Patient Comments: patient states he hasn't taken in about 6 months ciprofloxacin HCl [Cipro] 500 mg tablet 500 mg PO BID Qty: 14 0RF Referrals: Bienvenido Burt MD [Physician] - Miscellaneous,MD Yenni [Primary Care Provider] - Chandu Saul MD [Physician] - Stand Alone Forms: Patient Portal/API
[2023-08-03 07:30] VITALS: BP 138/89; PULSE 103; RESP 18; O2SAT 96
[2023-08-03 08:20] LABS: UR Morphine/Opiate cutoff 300 Negative (Negative); Ur Creatinine Normal (Normal); Ur Specific Gravity Normal (Normal); Urine Amphetamines Positive (Negative); Urine Barbiturates Negative (Negative); Urine Benzodiazepines Negative (Negative); Urine Cocaine Negative (Negative); Urine MDMA Negative (Negative); Urine Methadone Negative (Negative); Urine Methamphetamines Positive (Negative); Urine Oxycodone Negative (Negative); Urine Phencyclidine Negative (Negative); Urine Tetrahydrocannabinol Positive (Negative); Urine Tricyclic Antidepressant Negative (Negative); Urine pH Normal (Normal)
[2023-08-03] MEDS: LIDOCAINE 2% (GLYDO) 6 ML GEL TOP (08:24)
[2023-08-03] MEDS: LORazepam 2 MG/ML INJ 1 MG IM (08:24)
[2023-08-03 08:30] VITALS: BP 117/79; PULSE 102; RESP 18; O2SAT 95
--- NOTE | 2023-08-03 08:40 | PC.NURSE ---
Pt agitated when attempting to place new ramos catheter. Dr Mcgill made aware and at bedside. Ativan 0.5mg IM ordered. Pt refused and catheter placed successfully. Ativan was NOT given. Unable to remove from MAR. Note placed in MAR notes. Pharmacy made aware.
[2023-08-03 09:07] LABS: Appearance Urine UA Cloudy; Color Urine UA Straw
[2023-08-03 09:08] LABS: Glucose Urine UA 3+ g/dL (Negative); Ketones Urine UA 2+ (NEGATIVE); Protein Urine UA 3+ (Negative); Specific Gravity Urine UA 1.015 (1.000-1.035)
[2023-08-03 09:09] LABS: Bacteria Urine Moderate (10-30); Bilirubin Urine UA Negative (NEGATIVE); Culture Indicated Urine Specimen Cultured; Leukocyte Esterase Urine UA 4+ (NEGATIVE); Nitrite Urine UA NEGATIVE (Negative); Occult Blood Urine UA Negative (Negative); RBC Urine >100/HPF (0-5/HPF); Squamous Epithelial Cell Urine 0-1 /HPF (0-5/HPF); Urobilinogen Urine UA Normal E.U./dL (0.2); WBC Urine >100/HPF (0-5/HPF)
--- NOTE | 2023-08-03 09:13 | PC.NURSE ---
Report received @ 0700, care assumed. Pt in bed, catheter in place, bag disconnected, no bag present, pt urinating on stomach, reports the bag got in the way, pt reporting lower abdominal discomfort. first interaction with patient, pt appears agitated, rolling around in bed, intermittent yelling and cursing present. Pt found standing on side of bed, small episode of feces on the floor near patient. Pericare and brief offered and accepted. Bladder scan completed at bedside, 364mL present, DrObi aware. Attempted to irrigate, unable to flush. notified. Order to place new catheter received. Additional RNs and DrObi to bedside to assist with catheter placement, patient uncooperative, frequent yelling. New 14fr catheter placed without complication, immediate urine flashback. Patient verbalized relief of symptoms. VSS. No acute medical distress identified.
[2023-08-03] MEDS: CEFDINIR 300 MG CAPSULE PO (09:23)
[2023-08-03 09:30] VITALS: BP 137/75; PULSE 100; RESP 18; O2SAT 96
== END 2023-08-03 09:47 | disposition home or self-care (01) ==
PROVIDERS: Emergency Provider Emergency Medicine
DX: N39.0 Urinary tract infection, site not specified (principal); T83.091A Other mechanical complication of indwelling urethral catheter, initial encounter; R00.0 Tachycardia, unspecified
CPT/HCPCS: 80305; 81001; 87077; 87086; 87186; 96372; 99283; 99284; J2060

== ENCOUNTER 2023-08-15 08:54 | Emergency (ER) | payer OTHER, MEDICAID, SELFPAY ==
[2023-07-23 06:00] VITALS: BMI 20.7
[2023-08-15] VITALS (21 sets, daily range): BP systolic 124–177; BP diastolic 67–103; PULSE 35–122; RESP 20–22; TEMP 36.9; O2SAT 88–100; BMI 18.4
--- NOTE | 2023-08-15 09:34 | ED.MALEGU ---
HPI - Male Genitourinary General Chief complaint: Urogenital-Male Stated complaint: cath flushed Time Seen by Provider: 08/15/23 08:56 Source: patient Mode of arrival: Wheelchair History of Present Illness HPI Narrative: 58-year-old male with history of amphetamine abuse, urinary retention requiring Ramos catheter presents for catheter malfunction since approximately 4:00 a.m. Reports suprapubic pain and discomfort. Patietn states he is taking ciprofloxacin for UTI. Related Data Previous Rx's Medication Instructions Recorded alfuzosin 10 mg tablet,extended 10 mg PO DAILY #90 tabs 11/25/20 release 24 hr insulin glargine 100 unit/mL (3 20 unit (0.2 mL) SUBCUT DAILY #15 03/29/23 mL) subcutaneous pen (Lantus mL Solostar U-100 Insulin) pen needle, diabetic 31 gauge x #50 ea 03/31/2310/20 (Pen Needle) lidocaine 5 % topical gel See Rx Instructions .Route 04/30/23 .COMPLEX #30 grams cefdinir 300 mg capsule 300 mg PO BID #10 caps 08/03/23 ciprofloxacin HCl 500 mg tablet 500 mg PO BID #14 tabs 08/07/23 (Cipro) sulfamethoxazole 800 1 tab PO Q12H #14 tabs 08/15/23 mg-trimethoprim 160 mg tablet Allergies Allergy/AdvReac Type Severity Reaction Status Date / Time codeine [CODEINE] AdvReac Intermediate GI Upset Verified 08/15/23 09:29 Review of Systems Review of Systems Narrative: Reports: Suprapubic discomfort All other systems negative except as marked Patient History Medical History CKD (chronic kidney disease) Polysubstance abuse Self-catheterizes urinary bladder Methamphetamine use disorder, 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 Intermittent self-catheterization of bladder Hydronephrosis determined by ultrasound History of UTI Urinary retention Depression Asthma Bladder outlet obstruction Bladder atony Heroin addiction Bipolar 1 disorder Chronic hepatitis C Methamphetamine use Diabetes type 2, uncontrolled Acute urinary retention Constipation BPH (benign prostatic hyperplasia) Surgical History History of circumcision History of liver biopsy History of mandibular surgery (~1983) Family History Other Adopted person Social History marital status: unmarried,single number of children: 2 household members: none occupational status: disabled Smoking Status: Current every day smoker Tobacco: How many years used: 40 alcohol intake: former caffeine: No Smoking Status: Current every day smoker alcohol intake frequency: 0-2 drinks per day Substance Use Type: methamphetamine Exam Initial Vital Signs Initial Vital Signs: Vital Signs Blood Pressure 124/82 08/15/23 09:21 Const: Awake, alert, uncomfortable, appears older than stated age, chronically unwell Eyes: PERRL, EOMI, conjunctiva normal ENT: Atraumatic, extremely poor dentition, mucous membranes moist Cardiac: Tachycardia, regular rhythm RESP: unlabored, clear bilaterally, no wheezing GI: Atraumatic, soft, suprapubic fullness : ramos in place. Cloudy yellow urine in ramos leg bag MSK: Atraumatic, full range of motion, pulses equal Skin: Warm, Dry, intact, no rashes Neuro: AO x3, CN II-XII grossly intact, moves all extremities Course Course Course Narrative: Blocked ramos catheter. Patient supposed to be on ciprofloxacin for UTI, and reviewed cultures - bacteria do appear to be quite susceptible to cipro, however urine is extremely cloudy - question compliance. Orders Ordered: ED Orders 08/15/23 10:19 Urinalysis and Microscopic Stat Urine Culture Stat Discontinued Medications Lidocaine HCl (Lidocaine 2% (Glydo) 6 Ml Gel) 6 ml TOP NOW ONE Stop: 08/15/23 09:46 Last Admin: 08/15/23 09:56 Dose: 6 ml Documented By: RB Lorazepam (Lorazepam 0.5 Mg Tablet) 0.5 mg PO NOW ONE Stop: 08/15/23 09:54 Last Admin: 08/15/23 09:56 Dose: 0.5 mg Documented By: RB Ondansetron HCl (Ondansetron 4 Mg Odt) 4 mg SL NOW PRN PRN Reason: Nausea And Vomiting Ondansetron HCl (Ondansetron 4 Mg/2 Ml Inj) 4 mg IV NOW PRN PRN Reason: Nausea And Vomiting Reevaluation(s) Reevaluation #1: ramos exchanged, 800cc of urine drained. Patient reports resolution of pain. Tachycardic, however patient frequently tachy and concurrently abuses amphetamines. Will switch antibiotics. Patient strongly advised to folow up with urology. Vital Signs Vital signs: Vital Signs - 8 hr 08/15/23 09:21 08/15/23 09:25 08/15/23 09:30 Temperature 98.4 F Pulse Rate 119 H Respiratory Rate 20 Blood Pressure 124/82 124/82 130/92 H Pulse Oximetry 98 Oxygen Delivery Method Room Air 08/15/23 09:30 08/15/23 10:00 08/15/23 10:01 Temperature Pulse Rate 122 H 119 H 120 H Respiratory Rate Blood Pressure Pulse Oximetry 99 98 100 Oxygen Delivery Method 08/15/23 10:01 08/15/23 10:20 08/15/23 10:20 Temperature Pulse Rate 112 H Respiratory Rate 22 Blood Pressure 131/103 H 145/67 H Pulse Oximetry 99 Oxygen Delivery Method Nasal Cannula 08/15/23 10:25 08/15/23 10:25 08/15/23 10:30 Temperature Pulse Rate 107 H Respiratory Rate Blood Pressure 153/85 H 149/83 H Pulse Oximetry 95 Oxygen Delivery Method 08/15/23 10:30 08/15/23 10:35 08/15/23 10:35 Temperature Pulse Rate 108 H 108 H Respiratory Rate Blood Pressure 145/84 H Pulse Oximetry 95 97 Oxygen Delivery Method 08/15/23 10:40 08/15/23 10:40 08/15/23 10:45 Temperature Pulse Rate 108 H Respiratory Rate Blood Pressure 150/85 H 141/79 H Pulse Oximetry 97 Oxygen Delivery Method 08/15/23 10:45 08/15/23 10:50 08/15/23 10:50 Temperature Pulse Rate 105 H 108 H Respiratory Rate Blood Pressure 145/81 H Pulse Oximetry 98 98 Oxygen Delivery Method 08/15/23 10:55 08/15/23 10:55 08/15/23 11:00 Temperature Pulse Rate 107 H Respiratory Rate Blood Pressure 145/84 H 132/81 Pulse Oximetry 98 Oxygen Delivery Method 08/15/23 11:00 08/15/23 11:05 08/15/23 11:05 Temperature Pulse Rate 109 H 114 H Respiratory Rate Blood Pressure 136/86 Pulse Oximetry 98 97 Oxygen Delivery Method 08/15/23 11:10 08/15/23 11:10 08/15/23 11:15 Temperature Pulse Rate 116 H Respiratory Rate Blood Pressure 136/83 137/81 Pulse Oximetry 98 Oxygen Delivery Method 08/15/23 11:15 08/15/23 11:21 08/15/23 11:21 Temperature Pulse Rate 114 H 35 L Respiratory Rate Blood Pressure 177/86 H Pulse Oximetry 98 88 L Oxygen Delivery Method 08/15/23 11:26 08/15/23 11:26 08/15/23 11:30 Temperature Pulse Rate 117 H Respiratory Rate Blood Pressure 146/85 H 151/83 H Pulse Oximetry 98 Oxygen Delivery Method 08/15/23 11:30 08/15/23 11:35 08/15/23 11:35 Temperature Pulse Rate 113 H 113 H Respiratory Rate Blood Pressure 153/85 H Pulse Oximetry 98 98 Oxygen Delivery Method MDM - Male Genitourinary Lab Data Labs: Lab Results 08/15/23 Range/Units 10:19 Urine Color Yellow Urine Appearance Cloudy Urine pH 6.0 (4.5-8.0) Ur Specific [place] 1.010 (1.000-1.035) Urine Protein 1+ H (Negative) Urine Glucose (UA) 3+ H (Negative) g/dL Urine Ketones 1+ H (NEGATIVE) Urine Occult Blood 2+ H (Negative) Urine Nitrate Negative (Negative) Urine Bilirubin Negative (NEGATIVE) Urine Urobilinogen 0.2 (0.2) E.U./dL Ur Leukocyte Esterase 2+ H (NEGATIVE) Urine RBC 10-30/hpf H (0-5/HPF) Urine WBC >100/hpf H (0-5/HPF) Ur Squamous Epith Cells None seen (0-5/HPF) Urine Bacteria None seen (None) Urine Yeast 0-1/hpf (None) Ur Culture Indicated? Specimen cultured Discharge Plan Departure Patient Disposition: Home Clinical Impression: Obstructed Ramos catheter Instructions: DI for Urinary Tract Infection (UTI) Prescriptions: New sulfamethoxazole-trimethoprim 800-160 mg tablet 1 tab PO Q12H Qty: 14 0RF No Action alfuzosin 10 mg tablet extended release 24 hr 10 mg PO DAILY Qty: 90 3RF Patient Comments: Patient states he hasn't taken med in over a month Rx Instructions: administer after the same meal each day (DME) pen needle, diabetic [Pen Needle] 31 gauge x 1/4 needle See Rx Instructions .Route Qty: 50 0RF Rx Instructions: As directed lidocaine 5 % gel See Rx Instructions .ROUTE .COMPLEX Qty: 30 0RF Patient Comments: Patient states he hasn't used in a month Rx Instructions: Use a small amount on the tip of the penis TID as needed for discomfort. insulin glargine [Lantus Solostar U-100 Insulin] 100 unit/mL (3 mL) Insulin Pen 20 unit SUBCUT DAILY Qty: 15 0RF Patient Comments: patient states he hasn't taken in about 6 months ciprofloxacin HCl [Cipro] 500 mg tablet 500 mg PO BID Qty: 14 0RF cefdinir 300 mg capsule 300 mg PO BID Qty: 10 0RF Referrals: Miscellaneous,Doctor, MD [Primary Care Provider] - Stand Alone Forms: Patient Portal/API
[2023-08-15] MEDS: LORazepam 0.5 MG TABLET PO (09:56)
[2023-08-15] MEDS: LIDOCAINE 2% (GLYDO) 6 ML GEL TOP (09:56)
[2023-08-15 10:36] LABS: Appearance Urine UA CLOUDY; Bilirubin Urine UA NEGATIVE (NEGATIVE); Color Urine UA YELLOW; Glucose Urine UA 3+ g/dL (Negative); Ketones Urine UA 1+ (NEGATIVE); Leukocyte Esterase Urine UA 2+ (NEGATIVE); Nitrite Urine UA NEGATIVE (Negative); Occult Blood Urine UA 2+ (Negative); Protein Urine UA 1+ (Negative); Urobilinogen Urine UA 0.2 E.U./dL (0.2)
[2023-08-15 10:51] LABS: Bacteria Urine None Seen; RBC Urine 10-30/HPF (0-5/HPF); Squamous Epithelial Cell Urine None Seen (0-5/HPF); WBC Urine >100/HPF (0-5/HPF)
[2023-08-15 10:52] LABS: Culture Indicated Urine Specimen Cultured
== END 2023-08-15 12:15 | disposition home or self-care (01) ==
PROVIDERS: Emergency Provider Emergency Medicine
DX: T83.091A Other mechanical complication of indwelling urethral catheter, initial encounter (principal)
CPT/HCPCS: 51798; 81001; 87077; 87086; 99283; 99284

== ENCOUNTER 2023-09-03 08:08 | Emergency (ER) | payer OTHER, MEDICAID, SELFPAY ==
[2023-07-23 06:00] VITALS: BMI 20.7
--- NOTE | 2023-09-03 08:13 | ED.MALEGU ---
HPI - Male Genitourinary General Chief complaint: Urogenital-Male Stated complaint: cath is clogged, lots of pain Time Seen by Provider: 09/03/23 08:13 Source: patient, RN notes reviewed and old records reviewed Mode of arrival: Ambulatory Limitations: no limitations History of Present Illness HPI Narrative: 58-year-old male with history of amphetamine abuse, chronic kidney disease, diabetes type 2, bipolar 1 disorder, chronic hepatitis-C, urinary retention requiring Martinez catheter who presents with catheter malfunction since about 3:00 a.m. this morning. Having quite a bit of suprapubic pain and discomfort. States no fevers. No chest pain or shortness of breath, no nausea or vomiting, states he has been constipated recently but did use an enema this morning which allowed him to have a bowel movement. He states he has been passing flatus regularly. States it had been 2 or 3 days before his last bowel movement. States the catheter has been draining fine recently. He did have issue with blockage on the was seen at his catheter flushed unsuccessfully and then changed out had improvement of his symptoms. He is since completed the antibiotics he was on for UTI. These were ciprofloxacin. Patient states pain has been increasing this morning his Martinez catheter bag was full last night but there is a small amount of urine in the bag this morning but he states has not been draining he did attempt to flush at home. Reports history of allergies to codeine. Related Data Previous Rx's Medication Instructions Recorded insulin glargine 100 unit/mL (3 20 unit (0.2 mL) SUBCUT DAILY #15 03/29/23 mL) subcutaneous pen (Lantus mL Solostar U-100 Insulin) Allergies Allergy/AdvReac Type Severity Reaction Status Date / Time codeine [CODEINE] AdvReac Intermediate GI Upset Verified 09/03/23 08:19 Review of Systems Review of Systems ROS Unobtainable: All systems reviewed & are unremarkable except as noted in HPI and below Patient History Medical History CKD (chronic kidney disease) Polysubstance abuse Self-catheterizes urinary bladder Methamphetamine use disorder, 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 Intermittent self-catheterization of bladder Hydronephrosis determined by ultrasound History of UTI Urinary retention Depression Asthma Bladder outlet obstruction Bladder atony Heroin addiction Bipolar 1 disorder Chronic hepatitis C Methamphetamine use Diabetes type 2, uncontrolled Acute urinary retention Constipation BPH (benign prostatic hyperplasia) Surgical History History of circumcision History of liver biopsy History of mandibular surgery (~1983) Family History Other Adopted person Social History marital status: unmarried,single number of children: 2 household members: none occupational status: disabled Smoking Status: Current every day smoker Tobacco: How many years used: 40 alcohol intake: former caffeine: No Smoking Status: Current every day smoker alcohol intake frequency: 0-2 drinks per day Substance Use Type: methamphetamine Exam Narrative Exam Narrative: GENERAL: Alert and oriented x three, male in moderate distress. HEENT: Head normocephalic, atraumatic, EOMI, pupils reactive, face symmetric, moist mucous membranes NECK: Supple, full range of motion CARDIOVASCULAR: Regular rate and rhythm without murmurs, rubs or gallops. RESPIRATORY: Breath sounds equal bilaterally, no wheezes rales or rhonchi. ABDOMEN: Soft, nontender. Abdomen slightly distended over the suprapubic region and uncomfortable for the patient. Normoactive bowel sounds all 4 quadrants. No guarding or rebound, rigidity, no mass : No CVA tenderness. Male: normal external examination, no penile discharge or lesions, testicles non-tender, cremasteric reflex intact, no inguinal hernias noted. Patient has Martinez catheter in place no blood, no active drainage in the catheter it is self. There is a small amount of urine in the tubing and catheter. Does appear to have some sediment. EXTREMITIES: Normal range of motion, no clubbing or edema. Neurovascularly intact NEUROLOGICAL: Cranial nerves II through XII grossly intact. Moving all extremities SKIN: Warm, dry, no petechiae, no rashes or lesions. Initial Vital Signs Initial Vital Signs: Vital Signs Temperature 98 F 09/03/23 08:16 Pulse Rate 114 H 09/03/23 08:16 Respiratory Rate 22 09/03/23 08:16 Blood Pressure 142/96 H 09/03/23 08:16 Pulse Oximetry 98 11/18/23 08:16 Oxygen Delivery Method Room Air 09/03/23 08:16 Course Vital Signs Vital signs: Vital Signs - 8 hr 09/03/23 08:16 Temperature 98 F Pulse Rate 114 H Respiratory Rate 22 Blood Pressure 142/96 H Pulse Oximetry 98 Oxygen Delivery Method Room Air MDM - Male Genitourinary MDM Narrative Medical decision making narrative: 58-year-old male with known chronic BPH, CKD with complaint of Martniez catheter malfunction. Patient had his catheter flushed had immediate improvement and is now draining clear very light yellow urine. Discharge Plan Departure Patient Disposition: Home Clinical Impression: Malfunction of Martinez catheter Instructions: How to Care for Your Martinez Catheter -- Male Activity Restrictions/Additional Instructions: Follow up for recheck. Continue your home medications as prescribed. Please return for new or worsening symptoms, fevers, new abdominal back or flank pain, if you are catheter is not draining and appears blocked, bleeding or large clots, nausea or vomiting or other new or concerning changes. Prescriptions: No Action insulin glargine [Lantus Solostar U-100 Insulin] 100 unit/mL (3 mL) Insulin Pen 20 unit SUBCUT DAILY Qty: 15 0RF Patient Comments: patient states he hasn't taken in about 6 months Referrals: Miscellaneous,Doctor, [Primary Care Provider] - Stand Alone Forms: Patient Portal/API
[2023-09-03 08:16] VITALS: BP 142/96; PULSE 114; RESP 22; TEMP 36.6; O2SAT 98; BMI 19.0
--- NOTE | 2023-09-03 08:41 | PC.NURSE ---
flushed urinary catheter with 20mL sterile water x 2, good output and drainage immediately, pt reports relief, Dr. Mccray aware.
== END 2023-09-03 08:40 | disposition home or self-care (01) ==
PROVIDERS: Emergency Provider Emergency Medicine
DX: T83.018A Breakdown (mechanical) of other urinary catheter, initial encounter (principal)
CPT/HCPCS: 51798; 99282; 99283

== ENCOUNTER 2023-10-09 08:39 | Emergency (ER) | payer OTHER, MEDICAID, SELFPAY ==
[2023-07-23 06:00] VITALS: BMI 20.7
[2023-10-09 08:42] VITALS: BP 126/79; PULSE 58; PULSE 66; RESP 18; TEMP 36.7; O2SAT 93; O2SAT 98
[2023-10-09 08:43] VITALS: BP 126/79; PULSE 64; O2SAT 94
--- NOTE | 2023-10-09 09:17 | ED_ITS ---
HPI - Male Genitourinary General Chief complaint: Urogenital-Male Stated complaint: Cath Issues Time Seen by Provider: 10/09/23 09:16 Source: patient and EMS Mode of arrival: EMS History of Present Illness HPI Narrative: 58-year-old male with history of amphetamine abuse, chronic kidney disease, diabetes type 2, bipolar 1 disorder, chronic hepatitis-C, chronic urinary retention requiring Martinez catheter who presents with complaint of pop his catheter and not functioning properly with increased pain. Patient states his catheter balloon popped he had sudden increase in pain and called EMS to be transported. Patient states he has been having trouble with his catheter it has been blocked he had been trying to find a ride but once the pop occurred he was in too much pain and came here. Patient's catheter was removed balloon is brok en but intact. Patient states he thinks he has recurrent UTI he is had a lot of sediment. He notes he has been attempting to flush his catheter at. Did ask if he thought he may have accidentally use the wrong port and popped the balloon but he states no he was using the proper once. Patient states no fevers or chills. No nausea or vomiting. No new GI symptoms. Related Data Previous Rx's Medication Instructions Recorded insulin glargine 100 unit/mL (3 20 unit (0.2 mL) SUBCUT DAILY #15 03/29/23 mL) subcutaneous pen (Lantus mL Solostar U-100 Insulin) ciprofloxacin HCl 500 mg tablet 500 mg PO Q12H 7 days #14 tabs 10/09/23 Allergies Allergy/AdvReac Type Severity Reaction Status Date / Time codeine [CODEINE] AdvReac Intermediate GI Upset Verified 10/09/23 08:49 Review of Systems Review of Systems ROS Unobtainable: All systems reviewed & are unremarkable except as noted in HPI and below Patient History Medical History CKD (chronic kidney disease) Polysubstance abuse Self-catheterizes urinary bladder Methamphetamine use disorder, 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 Intermittent self-catheterization of bladder Hydronephrosis determined by ultrasound History of UTI Urinary retention Depression Asthma Bladder outlet obstruction Bladder atony Heroin addiction Bipolar 1 disorder Chronic hepatitis C Methamphetamine use Diabetes type 2, uncontrolled Acute urinary retention Constipation BPH (benign prostatic hyperplasia) Surgical History History of circumcision History of liver biopsy History of mandibular surgery (~1983) Family History Other Adopted person Social History marital status: unmarried,single number of children: 2 household members: none occupational status: disabled Smoking Status: Current every day smoker Tobacco: How many years used: 40 alcohol intake: former caffeine: No Smoking Status: Current every day smoker alcohol intake frequency: 0-2 drinks per day Substance Use Type: does not use and methamphetamine Exam Narrative Exam Narrative: GENERAL: Alert and oriented x three, mild distress HEENT: Head normocephalic, atraumatic, EOMI, pupils reactive, face symmetric, moist mucous membranes NECK: Supple, full range of motion CARDIOVASCULAR: Regular rate and rhythm without murmurs, rubs or gallops. RESPIRATORY: Breath sounds equal bilaterally, no wheezes rales or rhonchi. ABDOMEN: Soft, slightly distended suprapubic abdominal tenderness. Normoactive bowel sounds all 4 quadrants. No guarding or rebound, rigidity, no mass : No CVA tenderness, catheter currently out, Male: normal external examination, no penile discharge or lesions, testicles non-tender, no inguinal hernias noted. EXTREMITIES: Normal range of motion, no clubbing or edema. Neurovascularly intact NEUROLOGICAL: Cranial nerves II through XII grossly intact. Moving all extremities SKIN: Warm, dry, no petechiae, no rashes or lesions. Initial Vital Signs Initial Vital Signs: Vital Signs Temperature 98.0 F 10/09/23 08:42 Pulse Rate 58 L 10/09/23 08:42 Respiratory Rate 18 10/09/23 08:42 Blood Pressure 126/79 10/09/23 08:42 Pulse Oximetry 98 10/09/23 08:42 Oxygen Delivery Method Room Air 10/09/23 08:42 Course Orders Ordered: ED Orders 10/09/23 10:15 UA Complete [Urinalysis and Microscopic] Stat Urine Culture Stat Discontinued Medications Lidocaine HCl (Lidocaine 2% (Glydo) 6 Ml Gel) 6 ml TOP NOW ONE Stop: 10/09/23 08:58 Last Admin: 10/09/23 09:25 Dose: 6 ml Documented By: TANNER Oxycodone/Acetaminophen (Oxycodone/Acetaminophen 5/325 Tablet) 1 tab PO NOW ONE Stop: 10/09/23 09:30 Last Admin: 10/09/23 09:40 Dose: 1 tab Documented By: TANNER Vital Signs Vital signs: Vital Signs - 8 hr 10/09/23 10:28 10/09/23 10:29 10/09/23 10:29 Pulse Rate 101 H Blood Pressure 108/70 Pulse Oximetry 96 95 10/09/23 10:30 10/09/23 10:30 Pulse Rate 101 H Blood Pressure 109/73 Pulse Oximetry 95 MDM - Male Genitourinary Lab Data Labs: Lab Results 10/09/23 Range/Units 10:15 Urine Color Yellow Urine Appearance Cloudy Urine pH 5.0 (4.5-8.0) Ur Specific [place] 1.020 (1.000-1.035) Urine Protein 1+ H (Negative) Urine Glucose (UA) 3+ H (Negative) g/dL Urine Ketones Negative (NEGATIVE) Urine Occult Blood 2+ H (Negative) Urine Nitrate Negative (Negative) Urine Bilirubin Negative (NEGATIVE) Urine Urobilinogen 0.2 (0.2) E.U./dL Ur Leukocyte Esterase 2+ H (NEGATIVE) Urine RBC 5-10/hpf H (0-5/HPF) Urine WBC >100/hpf H (0-5/HPF) Ur Squamous Epith Cells None seen (0-5/HPF) Urine Bacteria Many (>30) H (None) Urine Yeast 1-5/hpf H (None) Ur Culture Indicated? Specimen cultured Urine Dip Bedside Urine Glucose 500 mg/dl Bedside Urine Bilirubin - Negative Bedside Urine Ketone - Negative Urine Specific [place] 1.015 Bedside Urine Occult Blood +++ Bedside Urine pH 5.5 Bedside Urine Protein + 30 Bedside Urine Urobilinogen - Negative Bedside Urine Nitrite - Negative Bedside Urine Leukocytes +++ 500 Esterase MDM Narrative Medical decision making narrative: 58-year-old male with CKD and chronic urinary incontinence/retention who presents with his Martinez catheter being blocked and then felt a pop. He has been attempting to flush it without any success. Catheter was removed balloon is intact but does appear to have broken. Catheter was replaced patient has had improvement in symptom. UA was sent. Patient started on presented antibiotics patient had quite a bit of sediment in his urine. Discharge Plan Departure Patient Disposition: Home Clinical Impression: Malfunction of indwelling urinary catheter Activity Restrictions/Additional Instructions: Please follow up for recheck with urology. Continue your home medications as prescribed. A prescription for antibiotics was sent to [facility] pharmacy Please return new or worsening symptoms, fevers, new abdominal back or flank pain if you are catheter is not draining or appears blocked, bleeding or large clots, nausea or vomiting or other new or concerning changes. Prescriptions: New ciprofloxacin HCl 500 mg tablet 500 mg PO Q12H 7 Days Qty: 14 0RF No Action insulin glargine [Lantus Solostar U-100 Insulin] 100 unit/mL (3 mL) Insulin Pen 20 unit SUBCUT DAILY Qty: 15 0RF Patient Comments: patient states he hasn't taken in about 6 months Referrals: Miscellaneous,Doctor, MD [Primary Care Provider] - Stand Alone Forms: Patient Portal/API
[2023-10-09] MEDS: LIDOCAINE 2% (GLYDO) 6 ML GEL TOP (09:25)
[2023-10-09] MEDS: OXYCODONE/ACETAMINOPHEN 5/325 TABLET 1 TAB PO (09:40)
--- NOTE | 2023-10-09 10:21 | PC.NURSE ---
Placed ramos catheter successfully. Pt tolerated procedure but expressed discomfort and remained anxious during placement. Ramos catheter patent and draining cloudy, milky uring with a strong odor.
[2023-10-09 10:28] VITALS: O2SAT 96
[2023-10-09 10:29] VITALS: BP 108/70; PULSE 101; O2SAT 95
[2023-10-09 10:30] VITALS: BP 109/73; PULSE 101; O2SAT 95
[2023-10-09 10:33] LABS: Appearance Urine UA CLOUDY; Bilirubin Urine UA NEGATIVE (NEGATIVE); Color Urine UA YELLOW; Glucose Urine UA 3+ g/dL (Negative); Ketones Urine UA NEGATIVE (NEGATIVE); Leukocyte Esterase Urine UA 2+ (NEGATIVE); Nitrite Urine UA NEGATIVE (Negative); Occult Blood Urine UA 2+ (Negative); Protein Urine UA 1+ (Negative); Urobilinogen Urine UA 0.2 E.U./dL (0.2)
[2023-10-09 10:44] LABS: Bacteria Urine Many (>30); RBC Urine 5-10/HPF (0-5/HPF); WBC Urine >100/HPF (0-5/HPF)
[2023-10-09 10:45] LABS: Culture Indicated Urine Specimen Cultured; Squamous Epithelial Cell Urine None Seen (0-5/HPF)
== END 2023-10-09 10:29 | disposition home or self-care (01) ==
PROVIDERS: Emergency Provider Emergency Medicine
DX: T83.011A Breakdown (mechanical) of indwelling urethral catheter, initial encounter (principal)
CPT/HCPCS: 81001; 81003; 87077; 87086; 87186; 99283; 99284

== ENCOUNTER 2023-10-27 16:39 | Emergency (ER) | payer OTHER, MEDICAID, SELFPAY ==
[2023-07-23 06:00] VITALS: BMI 20.7
[2023-10-27 16:44] VITALS: BP 156/74; PULSE 116; RESP 16; TEMP 36.9; O2SAT 96; BMI 19.1
[2023-10-27] MEDS: LIDOCAINE 2% (GLYDO) 6 ML GEL TOP (17:27)
[2023-10-27 18:11] LABS: Appearance Urine UA CLOUDY; Bilirubin Urine UA NEGATIVE (NEGATIVE); Color Urine UA YELLOW; Glucose Urine UA 3+ g/dL (Negative); Ketones Urine UA NEGATIVE (NEGATIVE); Leukocyte Esterase Urine UA 1+ (NEGATIVE); Nitrite Urine UA NEGATIVE (Negative); Occult Blood Urine UA 1+ (Negative); Protein Urine UA NEGATIVE (Negative); Specific Gravity Urine UA <=1.005 (1.000-1.035); Urobilinogen Urine UA 0.2 E.U./dL (0.2); pH Urine UA 6.5 (4.5-8.0)
[2023-10-27 18:26] LABS: Bacteria Urine Few (2-10); RBC Urine 1-5/HPF (0-5/HPF); Squamous Epithelial Cell Urine 0-1 /HPF (0-5/HPF); WBC Urine 30-100/HPF (0-5/HPF)
[2023-10-27 18:27] LABS: Culture Indicated Urine Specimen Cultured
[2023-10-27 18:56] VITALS: BP 148/68; PULSE 88; RESP 18; O2SAT 98
--- NOTE | 2023-10-27 20:21 | ED.GENADULT ---
HPI - General Adult General Chief complaint: Urogenital-Male Stated complaint: urinary cath is plugged Time Seen by Provider: 10/27/23 18:08 Source: patient Mode of arrival: Ambulatory History of Present Illness HPI narrative: 58-year-old gentleman with chronic indwelling catheter for the last 3 years secondary to neurogenic bladder. Typically followed by Dr. Nugent, urology [facility]. Additional problems include diabetes, continued tobacco abuse, methamphetamine use disorder. With his neurogenic bladder he does have a history of complicated urinary tract infections. He presents today concerned that the catheter is clogged. He did try flushing it and still has had no return and he feels like his bladder distended. He is not complaining of fever, chills generalized abdominal pain, chest pain palpitations or dyspnea. Related Data Previous Rx's Medication Instructions Recorded insulin glargine 100 unit/mL (3 20 unit (0.2 mL) SUBCUT DAILY #15 03/29/23 mL) subcutaneous pen (Lantus mL Solostar U-100 Insulin) nitrofurantoin macrocrystal 100 mg 100 mg PO BID #20 caps 10/27/23 capsule Allergies Allergy/AdvReac Type Severity Reaction Status Date / Time codeine [CODEINE] AdvReac Intermediate GI Upset Verified 10/27/23 16:48 Review of Systems Review of Systems Narrative: Pertinent positive and negative findings as per HPI Patient History Medical History (Updated 10/27/23 @ 20:50 by Sammi Pickens MD) Neurogenic bladder CKD (chronic kidney disease) Polysubstance abuse Methamphetamine use disorder, moderate Depression Asthma Heroin addiction Bipolar 1 disorder Chronic hepatitis C Methamphetamine use Diabetes type 2, uncontrolled Constipation Surgical History History of circumcision History of liver biopsy History of mandibular surgery (~1983) Family History Other Adopted person Social History marital status: unmarried,single number of children: 2 household members: none occupational status: disabled Smoking Status: Current every day smoker Tobacco: How many years used: 40 alcohol intake: former caffeine: No Smoking Status: Current every day smoker alcohol intake frequency: 0-2 drinks per day Substance Use Type: does not use and methamphetamine Exam Initial Vital Signs Initial Vital Signs: Vital Signs Temperature 98.4 F 10/27/23 16:44 Pulse Rate 116 H 10/27/23 16:44 Respiratory Rate 16 10/27/23 16:44 Blood Pressure 156/74 H 10/27/23 16:44 Pulse Oximetry 96 10/27/23 16:44 Oxygen Delivery Method Room Air 10/27/23 16:44 General: Alert appropriate in no acute distress. No evidence of sepsis, fever. Respiratory: Able to speak in full sentences, no obvious respiratory distress Abdomen: Scaphoid, nontender Penis: Unremarkable. No irritation around the meatus. Martinez catheter in place Skin: No obvious rashes, warm and dry Neurologic: Grossly intact no obvious asymmetries or abnormalities Psych: appropriate insight and affect, cooperative Course Orders Ordered: Discontinued Medications Lidocaine HCl (Lidocaine 2% (Glydo) 6 Ml Gel) 6 ml TOP NOW ONE Stop: 10/27/23 17:22 Last Admin: 10/27/23 17:27 Dose: 6 ml Documented By: RB Nitrofurantoin Macrocrystals (Nitrofurantoin Er 100 Mg Capsule) 100 mg PO NOW ONE Stop: 10/27/23 20:39 Last Admin: 10/27/23 20:42 Dose: 100 mg Documented By: DK Vital Signs Vital signs: Vital Signs - 8 hr 10/27/23 16:44 10/27/23 18:56 Temperature 98.4 F Pulse Rate 116 H 88 Respiratory Rate 16 18 Blood Pressure 156/74 H 148/68 H Pulse Oximetry 96 98 Oxygen Delivery Method Room Air Room Air Medical Decision Making Lab Data Labs: Lab Results 10/27/23 Range/Units 17:49 Urine Color Yellow Urine Appearance Cloudy Urine pH 6.5 (4.5-8.0) Ur Specific [place] <=1.005 (1.000-1.035) Urine Protein Negative (Negative) Urine Glucose (UA) 3+ H (Negative) g/dL Urine Ketones Negative (NEGATIVE) Urine Occult Blood 1+ H (Negative) Urine Nitrate Negative (Negative) Urine Bilirubin Negative (NEGATIVE) Urine Urobilinogen 0.2 (0.2) E.U./dL Ur Leukocyte Esterase 1+ H (NEGATIVE) Urine RBC 1-5/hpf (0-5/HPF) Urine WBC 30-100/hpf H (0-5/HPF) Ur Squamous Epith Cells 0-1 /hpf (0-5/HPF) Urine Bacteria Few (2-10) H (None) Ur Culture Indicated? Specimen cultured Micro UA Comment MDM Narrative Medical decision making narrative: CC: Martinez catheter issue Complicating co-morbidities: Patient has not indwelling Martinez catheter last changed 3 weeks ago. Placed for neurogenic bladder with significant BPH and lower urinary tract symptoms. He is had recurrent episodes of bladder infections some involving sepsis Data collected from: patient Social determinants of health that may influence the patients condition: Housing instability with polysubstance use chronic continued tobacco use and medical noncompliance controlling his diabetes Medical records reviewed: Notes from [facility] Urology reviewed Differential considered: Bladder debris blocking fully, kink in the Martinez, urinary tract infection Exam documented above, pertinent findings include: Patient is not acutely toxic. Martinez is replaced and drains appropriately. Quite cloudy urine Lab Test results independently reviewed as above. Pertinent findings: Urine shows glucose, occult blood, leukocyte esterase, 30-100 white blood cells, few bacteria, specimens cultured. In looking at prior urine samples he is grown out 3 different bacteria in the last number of months includingRaoultella, Klebsiella and E coli. All of them are sensitive to nitrofurantoin as well as fluoroquinolones Treatments: Martinez catheter is replaced. It is draining appropriately. He is given initial dose of nitrofurantoin Discussion: At this time patient is not toxic, additional blood work is not indicated and hospitalization is not appropriate. He has not appointment with Dr. Hayes, his urologist on November 21 which will be appropriate for next Martinez placement. Unsure if this is colonization or simply bladder debris represented on the urinalysis. We will place him on 10 days of nitrofurantoin for focused urinary treatment with no evidence of systemic symptoms. Prescription written, questions answered he will follow-up with his primary urologist in a month Discharge Plan Departure Patient Disposition: Home Clinical Impression: Atonic neurogenic bladder, Chronic indwelling Martinez catheter Urinary tract infection Qualifiers: Urinary tract infection type: catheter-associated UTI Indwelling urinary catheter type: indwelling urethral catheter Encounter type: initial encounter Qualified Code(s): T83.511A - Infection and inflammatory reaction due to indwelling urethral catheter, initial encounter Instructions: How to Care for Your Martinez Catheter -- Male Activity Restrictions/Additional Instructions: Thank you for coming in today Your Martinez catheter was replaced. There is a suggestion of a bladder infection starting. Based on your 3 prior bladder infections, I have chosen Macrobid as an antibiotic that should treat all of the bacteria that we have recently found cultures. This antibiotic is concentrated in your urine and tends to not cause any other symptoms through your body. Please complete the 10 day course. If you noticing fever, chills weakness, pain in your abdomen, flanks or around where the Martinez catheter actually comes out of your penis, please feel free to return to the emergency department. In the meantime. Please make sure you are keeping your appointment with Dr. Hayes, your urologist on November 21 Prescriptions: New nitrofurantoin macrocrystal 100 mg capsule 100 mg PO BID Qty: 20 0RF Rx Instructions: must administer with a meal/food No Action insulin glargine [Lantus Solostar U-100 Insulin] 100 unit/mL (3 mL) Insulin Pen 20 unit SUBCUT DAILY Qty: 15 0RF Patient Comments: patient states he hasn't taken in about 6 months Referrals: Miscellaneous,Doctor, MD [Primary Care Provider] - Stand Alone Forms: Patient Portal/API
[2023-10-27] MEDS: NITROFURANTOIN ER 100 MG CAPSULE PO (20:42)
[2023-10-27 20:58] VITALS: BP 123/79; PULSE 102; RESP 18; TEMP 36.9; O2SAT 96
== END 2023-10-27 20:58 | disposition home or self-care (01) ==
PROVIDERS: Emergency Medicine; Emergency Provider Emergency Medicine
DX: T83.511A Infection and inflammatory reaction due to indwelling urethral catheter, initial encounter (principal); N31.2 Flaccid neuropathic bladder, not elsewhere classified
CPT/HCPCS: 81001; 87077; 87086; 87186; 99283; 99284